=== PATIENT | female | born 1970 | race Caucasian/White ===

== ENCOUNTER → 2024-11-10 | Outpatient (CLI) | payer BC, SELFPAY ==
[2024-11-10 11:18] LABS: EXAGEN MAILED SPECIMEN
[2024-11-10 12:18] LABS: Color, Urine Yellow (Yellow); Glucose, Dipstick Normal (Normal); Ketone-Dipstick Negative (Negative); Leukocyte Esterase-Dipstick 25 /ul (Negative); Nitrite-Dipstick Negative (Negative); Occult Blood-Urine Negative /ul (Negative); Protein-Dipstick 15 mg/dl (Negative); Urine Bilirubin Dipstick Negative (Negative); Urine Clarity Clear (Clear); Urine Urobilinogen Normal (Normal)
[2024-11-10 12:32] LABS: Protein, Urine (Random) 13.6 mg/dL (<11.9); Protein:Creat Ratio 59 mg/g CRE (0-200)
[2024-11-10 12:43] LABS: Absolute Lymphocyte Count 2.26 X10^3/uL (0.83-4.51); Absolute Neutrophil Count 3.7 X10^3/uL (2.0-7.7); Basophil# 0.04 X10^3/uL; Basophil% 0.6 % (0-1); Eosinophil# 0.13 X10^3/uL; Hematocrit 45.3 % (37-47); Hemoglobin 14.7 g/dL (12.0-15.0); Lymphocyte # 2.26 X10^3/ul (0.83-4.51); Mean Corp Hgb Conc 32.5 g/dL (32-36); Mean Corpuscular Hgb 30.7 pg (27.0-32.0); Mean Corpuscular Volume 94.6 fL (81-99); Mean Platelet Vol. 10.4 fl (6.2-12.0); Monocyte# 0.47 X10^3/uL; Monocyte% 7.1 % (0-10); NRBC Flagged by Analyzer 0 % (0-5); Neutrophil # 3.72 X10^3/uL (2.7-7.7); Platelet Count 252 K/mm3 (150-450); RBC Distribution Width CV 13.5 % (11.6-14.6); RBC Distribution Width SD 47.2 fl (35.1-43.9); Red Blood Count 4.79 M/mm3 (4.2-5.4); White Blood Count 6.6 K/mm3 (4.4-11.0)
[2024-11-10 12:48] LABS: ALB/GLOB Ratio 0.9 RATIO (0.9-2.4); AST(SGOT) 25 U/L (15-37); Alanine Aminotransfer ALT/SGPT 27 U/L (13-56); Albumin, Serum 3.8 g/dL (3.2-5.0); Alkaline Phosphatase 124 U/L (45-117); Anion Gap 5 (5-15); BUN 14 mg/dL (7-18); BUN/Creat Ratio 14.9 RATIO (10-20); Calcium,Total 9.7 mg/dL (8.5-10.1); Chloride 105 mmol/L (98-107); Creatinine, Serum 0.94 mg/dL (0.55-1.02); EST Glomerular Filtration Rate 66 mL/min (>60); Est Glom Filt Rate - Afr Amer 80 mL/min (>60); Globulin 4.3 g/dL (2.2-4.2); Glucose 88 mg/dL (74-106); Potassium 3.7 mmol/L (3.5-5.1); Protein, Total 8.1 g/dL (6.4-8.2); Sodium Level 140 mmol/L (136-145)
[2024-11-10 13:11] LABS: Hepatitis B Surface Antibody Non-Reactive; Hepatitis B Surface Antigen Non-Reactive (Nonreactive); Hepatitis C Antibody Non-Reactive (Nonreactive)
== END | disposition home or self-care (01) ==
LOC: MTLAB 10:14
PROVIDERS: Referring Provider Internal Medicine Rheumatology; Visit Provider Internal Medicine Rheumatology
DX: M06.4 Inflammatory polyarthropathy (principal); R76.8 Other specified abnormal immunological findings in serum
CPT/HCPCS: 36415; 80053; 81002; 82570; 84156; 85025; 86706; 86803; 87340

== ENCOUNTER → 2025-04-03 | Outpatient (CLI) | payer BC, SELFPAY ==
[2025-04-03 15:17] LABS: Hematocrit 40.3 % (37-47); Hemoglobin 12.9 g/dL (12.0-15.0); Immature Granulocytes Count 0.010 X10^3/uL (0.0-0.0); Mean Corp Hgb Conc 32.0 g/dL (32-36); Mean Corpuscular Volume 100.2 fL (81-99); Mean Platelet Vol. 10.4 fl (6.2-12.0); NRBC Flagged by Analyzer 0 % (0-5); Platelet Count 237 K/mm3 (150-450); RBC Distribution Width CV 14.0 % (11.6-14.6); RBC Distribution Width SD 50.9 fl (35.1-43.9); Red Blood Count 4.02 M/mm3 (4.2-5.4); White Blood Count 5.9 K/mm3 (4.4-11.0)
[2025-04-03 16:05] LABS: AST(SGOT) 27 U/L (<=31); Alanine Aminotransfer ALT/SGPT 21 U/L (<=34); Albumin, Serum 4.0 g/dL (3.5-5.0); Alkaline Phosphatase 91 U/L (35-104); Anion Gap 8 (5-15); BUN 11 mg/dL (4-19); BUN/Creat Ratio 11.4 RATIO (10-20); Calcium,Total 9.2 mg/dL (7.6-11.0); Carbon Dioxide 27.8 mmol/L (21.0-32.0); Chloride 106 mmol/L (98-108); Globulin 2.7 g/dL (2.2-4.2); Glucose 87 mg/dL (70-99); Potassium 4.1 mmol/L (3.3-5.1)
--- OUTSIDE RECORDS SUMMARY | 2025-04-03 19:56 | XMS RPT_ITS | CCD ---
Author Organization [facility] Inform ion Partnership [facility] Care Team Providers Care Imcu Nurse Name Role Phone PARAG CANNON Admitting Unavailable PARAG CANNON Attending Unavailable PARAG CANNON Primary Care Unavailable Loreta GARCÍA Consulting Unavailable PROVIDER, UNKNOWN Consulting Unavailable Vera García DO Primary Care Provider Vera García DO Primary Care Provider Vera García DO Primary Care Provider VERA GARCÍA Primary Care Unavailable JOSEPHINE KINGSTON Attending Unavailable VERA GARCÍA Primary Care Unavailable JOSEPHINE KINGSTON Attending Unavailable VERA GARCÍA Primary Care Unavailable JOSEPHINE KINGSTON Attending Unavailable ESTEPHANIA MENDEZ Attending Unavailable SEFERINO ESPINAL Consulting Unavailable HALEY VIRK C.N.P. Attending Unav ailable JOSEPHINE KINGSTON Attending Unavailable Vera García Primary Care Provider AMIRAH WELLS Referring Unavailab le VERA GARCÍA Primary Care Unavailable Vera García DO Primary Care Provider [phone] JESSIE LOZOYA Attending Unavailable VERA GARCÍA Primary Care Unavailable JESSIE LOZOYA Referring Unavailable VERA GARCÍA Primary Care Unavailable GRANT VARGAS Attending Unavailable VERA GARCÍA Primary Care Unavailable AMIRAH SANCHEZ Attending Unavailable VERA GARCÍA Primary Care Unavailable JOEL العراقي Attending Unavailable VERA GARCÍA Primary Care Unavailable QUENTIN S Primary Care Unavailable Chetna Alarcon Referring Unavailable Chetna Alarcon Attending Unavailable Allergies Allergy Classification Reported Allergen(s) Allergy Type Date of Onset Reaction(s) Facility (1 source) Amoxicillin Drug Allergy [facility] (1 source) Penicillin Drug Allergy [facility] (20 sources) metroNIDAZOLE; Translations: [METRONIDAZOLE] Drug Allergy 7 Unknown, GI Upset [facility] (17 sources) Penicillins; Translations: [PENICILLINS] Drug Allergy 8 Unknown, Shortness of Breath [facility] (15 sources) armodafinil; Translations: [ARMODAFINIL] Drug Allergy 2 Other: See Comments [facility] (15 sources) cow milk allergenic extract; Translations: [MILK] Drug Allergy 0 GI Upset [facility] (15 sources) shrimp allergenic extract; Translations: [SHRIMP] Drug Allergy 0 GI Upset [facility] (8 sources) armodafinil Drug Allergy 2 [facility] (8 sources) Cow milk Allergy to substance 0 [facility] (8 sources) Penicillins Drug Allergy 8 Shortness of breath [facility] (8 sources) Shrimp product Allergy to substance 0 [facility] [email or web address] Medications Current Medications Medication Drug Class(es) Dates Sig (Normalized) Sig (Original) acetaminophen 325 mg / HYDROcodone bitartrate 5 mg oral tablet (8 sources) Opioid Agonist Start: 11-21-2022 take 1 tablet by mouth once HYDROcodone-aceta minophen (NORCO) 5-325 mg per tablet Take 1 tablet by mouth. 11/21/2022 Active Comment on above: Take 1 tablet by caroline peres [id number] 200 actuat albuterol 0.09 mg/actuat metered dose inhaler (2 sources) beta2-Adrenergic Agonist Start: 07-21-2024 albuterol HFA (PROVENTIL HFA, VENTOLIN HFA) 90 mcg/actuation inhaler Inhale 2 Puffs as instructed. 07/21/2024 Active amylase [id number] unt / lipase 62844 unt / protease [id number] unt delayed release oral capsule (8 sources) Start: 02-05-2023 take 1 capsule by mouth at mealtime Creon [id number] units capsule delayed-release particles capsule TAKE 1 CAPSULE BY MOUTH WITH MEALS AND SNACK 02/05/2023 Active atorvastatin 40 mg oral tablet (20 sources) HMG-CoA Reductase Inhibitor Start: 10-22-2019 take 1 tablet by mouth once daily atorvastatin (Lipitor) 40 MG tablet Take 40 mg by mouth daily. 01/22/2023 Active Comment on above: Take 40 mg by mouth once daily. atropine sulfate 0.025 mg / diphenoxylate hydrochloride 2.5 mg oral tablet (9 sources) Anticholinergic, Cholinergic Muscarinic Antagonist, Antidiarrheal Start: 07-24-2023 take 1 tablet by mouth every eight hours as needed for diarrhea diphenoxylate-atr opine (Lomotil) 2.5-0.025 MG tablet TAKE 1 TABLET BY MOUTH EVERY 8 HOURS NEEDED FOR DIARRHEA 07/24/2023 Active benzonatate 100 mg oral capsule (3 sources) Non-narcotic Antitussive Start: 09-26-2019 End: 05-17-2022 take 1 capsule by mouth three times daily benzonatate (TESSALON PERLE) 100 mg capsule TAKE 1 CAPSULE BY MOUTH THREE TIMES DAILY FOR 10 DAYS 0 09/26/2019 05/17/2022 Discontinued (Course of therapy completed) Comment on above: TAKE 1 CAPSULE BY [facility] THREE TIMES DAILY FOR 10 DAYS dextromethorphan hydrobromide 3 mg/ml / promethazine hydrochloride 1.25 mg/ml oral solution (6 sources) Phenothiazine, Uncompetitive N-vvgkur-Y-aspartat e Receptor Antagonist, Sigma-1 Agonist Start: 10-04-2023 promethazine-dext romethorphan (Phenergan-DM) 6.25-15 MG/5ML syrup 10/04/2023 Active doxycycline hyclate 100 mg oral capsule (6 sources) Tetracycline-class Drug Start: 10-04-2023 doxycycline (Vibramycin) 100 MG capsule 10/04/2023 Active ezetimibe 10 mg oral tablet (20 sources) Dietary Cholesterol Absorption Inhibitor Start: 04-18-2023 take 1 tablet by mouth once daily ezetimibe (Zetia) 10 MG tablet Take 10 mg by mouth daily. 04/18/2023 Active Start: 10-14-2019 End: 03-18-2023 take 1 tablet by mouth once daily ezetimibe (ZETIA) 10 mg tablet Take 10 mg by mouth once daily. For 30 days 10/14/2019 Active Comment on above: Take 10 mg by mouth once daily. For 30 days once daily. hyoscyamine sulfate 0.125 mg oral tablet (17 sources) Start: 01-30-2023 take 1 tablet by mouth three times daily as needed hyoscyamine (Anaspaz,Levsin) 0.125 MG tablet Take 0.125 mg by mouth 3 times daily as needed. 01/30/2023 Active Start: 05-15-2022 Hyoscyamine Gomez lfate 0.125 mg/5 mL elix 05/15/2022 Active levocetirizine dihydrochloride 5 mg oral tablet (17 sources) Histamine-1 Receptor Antagonist Start: 06-24-2022 take 1 tablet by mouth once daily in the evening levocetirizine (Xyzal) 5 MG tablet Take 5 mg by mouth every evening. 06/24/2022 Active Comment on above: 5 mg. lipase/protease/amyla se (CREON ORAL) (12 sources) lipase/protease/ grant lase (CREON ORAL) Take by mouth once daily. Active lipase/protease/ amylase (CREON ORAL) Take by mouth once daily. 0 Active Comment on above: Take by mouth once d aily. 24 hr metoprolol succinate 50 mg extended release oral tablet (20 sources) beta-Adrenergic [place] Start: 05-26-2023 take 1 tablet by mouth once daily metoprolol succinate XL (Toprol-XL) 50 MG 24 hr tablet Take 50 mg by mouth daily. 05/26/2023 Active Start: 10-22-2019 End: 03-18-2023 take 1 tablet by mouth once daily metoprolol succinate ER (TOPROL XL) 50 mg 24 hr tablet Take 50 mg by mouth once daily. 0 10/22/2019 Active Comment on above: Take 50 mg by mouth once daily. once daily. PARAGARD INTRAUTERINE COPPER IU (8 sources) PARAGARD INTRAUT ERINE COPPER IU by IntraUTERine route. Inserted 2016 Active PARAGARD INTRAUT ERINE COPPER IU by IntraUTERine route. 0 Active sulfamethoxazole 800 mg / trimethoprim 160 mg oral tablet (3 sources) Dihydrofolate Reductase Inhibitor Antibacterial, Sulfonamide Antimicrobial Start: 03-18-2023 End: 03-28-2023 take 1 tablet by mouth twice daily sulfamethoxazole-trimethoprim (BACTRIM DS) 800-160 mg per tablet Indications: Acute midline low back pain without sciatica , Urinary frequency , Cellulitis of left thigh Take 1 tablet by mouth twice daily for 10 days. 20 tablet 0 03/18/2023 03/28/2023 Active Comment on above: Take 1 tablet by caroline twice daily for 10 days. Completed/Discontinued Medications Medication Drug Class(es) Dates Sig (Normalized) Sig (Original) albuterol 0.833 mg/ml / ipratropium bromide 0.167 mg/ml inhalation solution (2 sources) Anticholinergic, beta2-Adrenergic Agonist Start: 08-22-2024 End: 08-22-2024 ipratropium-albute rol 3 mL nebulizer solution (DUONEB) Start: 08-22-2024 End: 08-22-2024 take 1 dose by inhalation once 3 mL, INHALATION, ONCE, 1 dose, On Sun08/22/24 at 1500, PROTECT FROM LIGHT. The unit-dose vial should remain stored in the protective foil pouch until time of use. 1 ml triamcinolone acetonide 40 mg/ml injection (2 sources) Corticosteroid Start: 08-22-2024 End: 08-22-2024 triamcinolone acetonide 40 mg injection (KeNALog 40) Start: 08-22-2024 End: 08-22-2024 inject 1 dose by intramuscular injection once 40 mg, INTRAMUSCULAR, ONCE, 1 dose, On Sun08/22/24 at 1530 Problems Active Problems Problem Classification Problem Date Documented Date Episodic/Chronic Administrative/social admission (1 source) Referral statuses; Translations: [Persons encountering health services in other specified circumstances] 06-06-2023 Episodic Contraceptive and procreative management (1 source) Contraception ; Translations: [Encounter for surveillance of other contraceptives] 06-16-2024 Episodic Genitourinary symptoms and ill-defined conditions (2 sources) Female stress incontinence; Translations: [Stress incontinence (female) (male)] 10-05-2023 Chronic Genitourinary symptoms and ill-defined conditions (2 sources) Increased frequency of urination; Translations: [Frequency of micturition] Episodic Other diseases of bladder and urethra (1 source) Overactive bladder; Translations: [Overactive bladder] 10-05-2023 Chronic Other ear and sense organ disorders (1 source) Impacted cerumen in left ear; Translations: [Impacted cerumen, left ear] 08-22-2024 Episodic Other ear and sense organ disorders (1 source) Impacted cerumen, left ear; Translations: [Impacted cerumen of left ear] Onset: 08-22-2024 Episodic Other lower respiratory disease (2 sources) Cough; Translations: [Acute cough] 08-22-2024 Episodic Other screening for suspected conditions (not mental disorders or infectious disease) (5 sources) Patient encounter status; Translations: [Encounter for screening mammogram for malignant neoplasm of breast] Onset: 06-16-2024 06-04-2023 Episodic Pancreatic disorders (not diabetes) (13 sources) Chronic pancreatitis; Translations: [Other chronic pancreatitis] Onset: 05-17-2022 Chronic Prolapse of female genital organs (1 source) Midline cystocele; Translations: [Cystocele, midline] 10-05-2023 Chronic Rheumatoid arthritis and related disease (1 source) Inflammatory polyarthropathy; Translations: [Inflammatory polyarthropathy] Onset: 11-21-2024 Chronic Skin and subcutaneous tissue infections (1 source) Cellulitis of left thigh; Translations: [Cellulitis of left lower limb] Episodic Superficial injury; contusion (1 source) Insect bite of lower limb; Translations: [Insect bite (nonvenomous), left thigh, initial encounter] Episodic Unclassified (1 source) Acute cough; Translations: [Acute cough] Onset: 08-22-2024 Unclassified (2 sources) Procedure; Translations: [Procedure] Onset: 10-05-2023 Past or Other Problems Problem Classification Problem Date Documented Da te Episodic/Chronic Calculus of urinary tract (14 sources) Ureteric stone; Translations: [Calculus of ureter] Onset: 05-17-2022 Episodic Spondylosis; intervertebral disc disorders; other back problems (2 sources) Acute low back pain; Translations: [Acute midline low back pain without sciatica] Onset: 05-01-2022 Episodic Results Test Name Value Interpretation Reference Range Facil ity CBC W/Diff, Automatedon 10-25 Absolute Lymph 2.26 X10 3/uL Normal 0.83-4.51 [facility] Comment on above: Performed By: #### L 3890.6200, L100.0100, L500.4050, L501.0900, L3890.6300, L400.2011, L3890.6100 #### [facility] [address] [place], [address] Absolute Neut 3.7 X10 3/uL Normal 2.0-7.7 [facility] Comment on above: Performed By: #### L 3890.6200, L100.0100, L500.4050, L501.0900, L3890.6300, L400.2010, L3890.6100 #### [facility] [address] [place], [address] Basophils/100 WBC (Bld) 0.6 % Normal 0-1 [facility] Comment on above: Performed By: #### L 3890.6200, L100.0100, L500.4050, L501.0900, L3890.6300, L400.2010, L3890.6100 #### [facility] [address] [place], [address] Eosinophils/100 WBC (Bld) 2.0 % Normal 0-5 [facility] Comment on above: Performed By: #### L 3890.6200, L100.0100, L500.4050, L501.0900, L3890.6300, L400.2010, L3890.6100 #### [facility] [address] [place], [address] Erythrocyte distribution width (RBC) [Ratio] 13.5 % Normal 11.6-14.6 [facility] Comment on above: Performed By: #### L 3890.6200, L100.0100, L500.4050, L501.0900, L3890.6300, L400.2010, L3890.6100 #### [facility] [address] [place], [address] Hematocrit (Bld) [Volume fraction] 45.3 % Normal 37-47 [facility] Comment on above: Performed By: #### L 3890.6200, L100.0100, L500.4050, L501.0900, L3890.6300, L400.2010, L3890.6100 #### [facility] [address] [place], [address] Hemoglobin (Bld) [Mass/Vol] 14.7 g/dL Normal 12.0-15.0 [facility] Comment on above: Performed By: #### L 3890.6200, L100.0100, L500.4050, L501.0900, L3890.6300, L400.2010, L3890.6100 #### [facility] [address] [place], [address] IG% 0.300 Normal 0.0-0.9 [facility] Comment on above: Result Comment: IG% - Immature Granulocytes (promyelocytes, myelocytes and metamyelocytes) > 1% indicates that a LEFT SHIFT is Present. Performed By: #### L 3890.6200, L100.0100, L500.4050, L501.0900, L3890.6300, L400.2010, L3890.6100 #### [facility] [address] [place], [address] Lymphocytes/100 WBC (Bld) 34.0 % Normal 19-41 [facility] Comment on above: Performed By: #### L 3890.6200, L100.0100, L500.4050, L501.0900, L3890.6300, L400.2010, L3890.6100 #### [facility] [address] [place], [address] MCH (RBC) [Entitic mass] 30.7 pg Normal 27.0-32.0 [facility] Comment on above: Performed By: #### L 3890.6200, L100.0100, L500.4050, L501.0900, L3890.6300, L400.2010, L3890.6100 #### [facility] [address] [place], [address] MCHC (RBC) [Mass/Vol] 32.5 g/dL Normal 32-36 [facility] Comment on above: Performed By: #### L 3890.6200, L100.0100, L500.4050, L501.0900, L3890.6300, L400.2010, L3890.6100 #### [facility] [address] [place], [address] MCV (RBC) [Entitic vol] 94.6 fL Normal 81-99 [facility] Comment on above: Performed By: #### L 3890.6200, L100.0100, L500.4050, L501.0900, L3890.6300, L400.2010, L3890.6100 #### [facility] [address] [place], [address] Monocytes/100 WBC (Bld) 7.1 % Normal 0-10 [facility] Comment on above: Performed By: #### L 3890.6200, L100.0100, L500.4050, L501.0900, L3890.6300, L400.2010, L3890.6100 #### [facility] [address] [place], [address] Neutrophils/100 WBC (Bld) 56.0 % Normal 47-70 [facility] Comment on above: Performed By: #### L 3890.6200, L100.0100, L500.4050, L501.0900, L3890.6300, L400.2010, L3890.6100 #### [facility] [address] [place], [address] Nucleated RBC (Bld) [#/Vol] 0 10*3/uL Normal 0-5 [facility] Comment on above: Performed By: #### L 3890.6200, L100.0100, L500.4050, L501.0900, L3890.6300, L400.2010, L3890.6100 #### [facility] [address] [place], [address] Platelet mean volume (Bld) [Entitic vol] 10.4 fL Normal 6.2-12.0 [facility] Comment on above: Performed By: #### L 3890.6200, L100.0100, L500.4050, L501.0900, L3890.6300, L400.2010, L3890.6100 #### [facility] [address] [place], [address] Platelets (Bld) [#/Vol] 252 10*3/uL Normal 150-450 [facility] Comment on above: Performed By: #### L 3890.6200, L100.0100, L500.4050, L501.0900, L3890.6300, L400.2010, L3890.6100 #### [facility] [address] [place], [address] RBC (Bld) [#/Vol] 4.79 10*6/uL Normal 4.2-5.4 [facility] Comment on above: Performed By: #### L 3890.6200, L100.0100, L500.4050, L501.0900, L3890.6300, L400.2010, L3890.6100 #### [facility] [address] [place], [address] RDW SD 47.2 fl High 35.1-43.9 [facility] Comment on above: Performed By: #### L 3890.6200, L100.0100, L500.4050, L501.0900, L3890.6300, L400.2010, L3890.6100 #### [facility] [address] [place], [address] WBC (Bld) [#/Vol] 6.6 10*3/uL Normal 4.4-11.0 [facility] Comment on above: Performed By: #### L 3890.6200, L100.0100, L500.4050, L501.0900, L3890.6300, L400.2010, L3890.6100 #### [facility] [address] [place], [address] Comprehensive Metabolic Prof ilon 11-10-2024 Albumin [Mass/Vol] 3.8 g/dL Normal 3.2-5.0 [facility] Comment on above: Performed By: #### L 3890.6200, L100.0100, L500.4050, L501.0900, L3890.6300, L400.2010, L3890.6100 #### [facility] [address] [place], [address] Albumin/Globulin [Mass ratio] 0.9 {ratio} Normal 0.9-2.4 [facility] Comment on above: Performed By: #### L 3890.6200, L100.0100, L500.4050, L501.0900, L3890.6300, L400.2010, L3890.6100 #### [facility] [address] [place], [address] ALK P 124 U/L High 45-117 [facility] Comment on above: Performed By: #### L 3890.6200, L100.0100, L500.4050, L501.0900, L3890.6300, L400.2010, L3890.6100 #### [facility] [address] [place], [address] ALT [Catalytic activity/Vol] 27 U/L Normal 13-56 [facility] Comment on above: Performed By: #### L 3890.6200, L100.0100, L500.4050, L501.0900, L3890.6300, L400.2010, L3890.6100 #### [facility] [address] [place], [address] AST [Catalytic activity/Vol] 25 U/L Normal 15-37 [facility] Comment on above: Performed By: #### L 3890.6200, L100.0100, L500.4050, L501.0900, L3890.6300, L400.2010, L3890.6100 #### [facility] [address] [place], [address] Bilirubin [Mass/Vol] 0.80 mg/dL Normal 0.20-1.00 [facility] Comment on above: Result Comment: For patients on eltrombopag therapy, use of Dimension [place] TBIL is not recommended. Performed By: #### L 3890.6200, L100.0100, L500.4050, L501.0900, L3890.6300, L400.2010, L3890.6100 #### [facility] [address] [place], [address] BUN/CRE 14.9 RATIO Normal 10-20 [facility] Comment on above: Performed By: #### L 3890.6200, L100.0100, L500.4050, L501.0900, L3890.6300, L400.2010, L3890.6100 #### [facility] [address] [place], [address] CA,Total 9.7 mg/dL Normal 8.5-10.1 [facility] Comment on above: Performed By: #### L 3890.6200, L100.0100, L500.4050, L501.0900, L3890.6300, L400.2010, L3890.6100 #### [facility] [address] [place], [address] Chloride [Moles/Vol] 105 mmol/L Normal 98-107 [facility] Comment on above: Performed By: #### L 3890.6200, L100.0100, L500.4050, L501.0900, L3890.6300, L400.2010, L3890.6100 #### [facility] [address] [place], [address] CO2 [Moles/Vol] 30.0 mmol/L Normal 21.0-32.0 [facility] Comment on above: Performed By: #### L 3890.6200, L100.0100, L500.4050, L501.0900, L3890.6300, L400.2010, L3890.6100 #### [facility] [address] [place], [address] Creatinine [Mass/Vol] 0.94 mg/dL Normal 0.55-1.02 [facility] Comment on above: Result Comment: The validity of the calculated GFR GFRAA in patients over 70 years has not been determined. Clinical correlation is essential. Performed By: #### L 3890.6200, L100.0100, L500.4050, L501.0900, L3890.6300, L400.2010, L3890.6100 #### [facility] [address] [place], [address] EST GFR - AA 80 mL/min Normal >60 [facility] Comment on above: Result Comment: Afri can Stateless GFR Calc Performed By: #### L 3890.6200, L100.0100, L500.4050, L501.0900, L3890.6300, L400.2010, L3890.6100 #### [facility] [address] [place], [address] GAP 5 Normal 5-15 [facility] Comment on above: Performed By: #### L 3890.6200, L100.0100, L500.4050, L501.0900, L3890.6300, L400.2010, L3890.6100 #### [facility] [address] [place], [address] GFR/1.73 sq M.predicted among non-blacks MDRD (S/P/Bld) [Vol rate/Area] 66 mL/min/{1.73_m2} Normal >60 [facility] Comment on above: Result Comment: Non- GFR Calc Performed By: #### L 3890.6200, L100.0100, L500.4050, L501.0900, L3890.6300, L400.2010, L3890.6100 #### [facility] [address] [place], [address] Globulin (S) [Mass/Vol] 4.3 g/dL High 2.2-4.2 [facility] Comment on above: Performed By: #### L 3890.6200, L100.0100, L500.4050, L501.0900, L3890.6300, L400.2010, L3890.6100 #### [facility] [address] [place], [address] Glucose [Mass/Vol] 88 mg/dL Normal 74-106 [facility] Comment on above: Performed By: #### L 3890.6200, L100.0100, L500.4050, L501.0900, L3890.6300, L400.2010, L3890.6100 #### [facility] [address] [place], [address] Potassium [Moles/Vol] 3.7 mmol/L Normal 3.5-5.1 [facility] Comment on above: Performed By: #### L 3890.6200, L100.0100, L500.4050, L501.0900, L3890.6300, L400.2010, L3890.6100 #### [facility] [address] [place], [address] Sodium [Moles/Vol] 140 mmol/L Normal 136-145 [facility] Comment on above: Performed By: #### L 3890.6200, L100.0100, L500.4050, L501.0900, L3890.6300, L400.2010, L3890.6100 #### [facility] [address] [place], [address] T PROT 8.1 g/dL Normal 6.4-8.2 [facility] Comment on above: Performed By: #### L 3890.6200, L100.0100, L500.4050, L501.0900, L3890.6300, L400.2010, L3890.6100 #### [facility] [address] [place], [address] Urea nitrogen [Mass/Vol] 14 mg/dL Normal 7-18 [facility] Comment on above: Performed By: #### L 3890.6200, L100.0100, L500.4050, L501.0900, L3890.6300, L400.2010, L3890.6100 #### [facility] [address] [place], [address] EXAGENon 11-10-2024 EXAGEN MAILED SPECIMEN Normal [facility] Comment on above: Performed By: #### L 801.1549 #### [facility] [address] [place], [address] Hepatitis B Surface Antibody on 11-10-2024 HEP B Surf Ab Non-Reactive Normal [facility] Comment on above: Result Comment: Non Reactive: Inconsistent with immunity less than <10 mIU/mL Reactive: Consistent with immunity greater than or equal to 10 mIU/mL Performed By: #### L 3890.6200, L100.0100, L500.4050, L501.0900, L3890.6300, L400.2010, L3890.6100 #### [facility] [address] [place], [address] Hepatitis B Surface Antigeno n 11-10-2024 HEP B Surf Ag Non-Reactive Normal Nonreactive [facility] Comment on above: Performed By: #### L 3890.6200, L100.0100, L500.4050, L501.0900, L3890.6300, L400, L3890.6100 #### [facility] [address] [place], [address] Hepatitis C Antibodyon 11-10 Hepatitis C AB Non-Reactive Normal Nonreactive [facility] Comment on above: Result Comment: Non Reactive: < 0.8 Equivocal: >/= 0.8 to < 1.0 Reactive: >/= 1.0 The CDC requires that a reactive/equivocal HCV antibody result be sent out for confirmation. HCV Quant by PCR testing. Performed By: #### L 3890.6200, L100.0100, L500.4050, L501.0900, L3890.6300, L400, L3890.6100 #### [facility] [address] [place], [address] Protein+Creatinine Ratio,Uri neon 11-10-2024 PROT:CRE RATIO 59 mg/g CRE Normal 0-200 [facility] Comment on above: Performed By: #### L 3890.6200, L100.0100, L500.4050, L501.0900, L3890.6300, L400.2010, L3890.6100 #### [facility] [address] [place], [address] Protein (U) [Mass/Vol] 13.6 mg/dL High <11.9 [facility] Comment on above: Performed By: #### L 3890.6200, L100.0100, L500.4050, L501.0900, L3890.6300, L400.2010, L3890.6100 #### [facility] [address] [place], [address] UR CREAT 232.00 mg/dL Normal NO RANGE EST. [facility] Comment on above: Performed By: #### L 3890.6200, L100.0100, L500.4050, L501.0900, L3890.6300, L400.2010, L3890.6100 #### [facility] [address] [place], [address] Urinalysis, Routine (Dipstic k)on 11-10-2024 BILIRUBIN URINE Negative Normal Negative [facility] Comment on above: Order Comment: Urine , Random Performed By: #### L 3890.6200, L100.0100, L500.4050, L501.0900, L3890.6300, L400.2010, L3890.6100 #### [facility] [address] [place], [address] Clarity (U) Clear Normal Clear [facility] Comment on above: Order Comment: Urine , Random Performed By: #### L 3890.6200, L100.0100, L500.4050, L501.0900, L3890.6300, L400.2010, L3890.6100 #### [facility] [address] [place], [address] Color (U) Yellow Normal Yellow [facility] Comment on above: Order Comment: Urine , Random Performed By: #### L 3890.6200, L100.0100, L500.4050, L501.0900, L3890.6300, L400.2010, L3890.6100 #### [facility] [address] [place], [address] GLUCOSE, UR Normal Normal Normal [facility] Comment on above: Order Comment: Urine , Random Performed By: #### L 3890.6200, L100.0100, L500.4050, L501.0900, L3890.6300, L400.2010, L3890.6100 #### [facility] [address] [place], [address] KETONE UR Negative Normal Negative [facility] Comment on above: Order Comment: Urine , Random Performed By: #### L 3890.6200, L100.0100, L500.4050, L501.0900, L3890.6300, L400.2010, L3890.6100 #### [facility] [address] [place], [address] LEUK ESTERASE 25 /ul Abnormal Negative [facility] Comment on above: Order Comment: Urine , Random Performed By: #### L 3890.6200, L100.0100, L500.4050, L501.0900, L3890.6300, L400.2010, L3890.6100 #### [facility] [address] [place], [address] Nitrite Ql (U) Negative Normal Negative [facility] Comment on above: Order Comment: Urine , Random Performed By: #### L 3890.6200, L100.0100, L500.4050, L501.0900, L3890.6300, L400.2010, L3890.6100 #### [facility] [address] [place], [address] OCCULT BLOOD-UR Negative Normal Negative [facility] Comment on above: Order Comment: Urine , Random Performed By: #### L 3890.6200, L100.0100, L500.4050, L501.0900, L3890.6300, L400.2010, L3890.6100 #### [facility] [address] [place], [address] pH UR 6.0 Normal 5.0 - 8.0 [facility] Comment on above: Order Comment: Urine , Random Performed By: #### L 3890.6200, L100.0100, L500.4050, L501.0900, L3890.6300, L400.2010, L3890.6100 #### [facility] [address] [place], [address] PROT DIPSTX 15 mg/dl Abnormal Negative [facility] Comment on above: Order Comment: Urine , Random Performed By: #### L 3890.6200, L100.0100, L500.4050, L501.0900, L3890.6300, L400.2010, L3890.6100 #### [facility] [address] [place], [address] SP.GR. DIPSTX 1.020 Normal 1.002-1.030 [facility] Comment on above: Order Comment: Urine , Random Performed By: #### L 3890.6200, L100.0100, L500.4050, L501.0900, L3890.6300, L400.2010, L3890.6100 #### [facility] [address] [place], [address] UROBILI Normal Normal Normal [facility] Comment on above: Order Comment: Urine , Random Performed By: #### L 3890.6200, L100.0100, L500.4050, L501.0900, L3890.6300, L400.2010, L3890.6100 #### [facility] [address] [place], [address] 36on 09-08-2024 36 S: Patient called [facility] B: Appointment for today at 8am A: Patient states she just got a text stating that appointment needs to be rescheduled. Patient trying to confirm if she still has appointment for today or not. R: Patient asking to be called if appointment needs to be rescheduled. Patient can be reached at [phone]. Reason for Disposition ? 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 Benadryl and cough medication last dose yesterday ) HPI: Madelyn Juarez is a 54 year old female who presents today for 1 month history of cold-like symptoms. Patient states approximately 1 month ago she started with runny nose body aches and a cough. States that she saw her family doctor's office at that time was diagnosed with bronchitis. Was encouraged aigb-bkz-[id number] cold and cough medications. Patient states approximately 1 week later she called in and stated she was no better. States at that time she was sent a Z-Raciel prescription. Patient states that she did not see any improvement in her symptoms with this medicine. States she contacted them again on August 04. Was placed on doxycycline twice a day for 7 days as well as a Tessalon prescription. Patient states that again she had not seen any improvement. States that she did go on a cruise to the [facility] recently. States she seemed to improve while in the warmer weather. As soon as they got home her symptoms have worsened. Does have a history of seasonal allergies. Is currently taking 2 different antihistamines. Patient states she used to get like this every year and her primary care provider used to give her an injection which cleared her symptoms. Patient does believe this was a Kenalog injection. Patient denies any fever. Has had headache as well as diarrhea. Has attempted cough syrup. Has not had chest x-ray nor oral steriods since symptoms started. PAST MEDICAL HISTORY Diagnosis Date Cholecystitis Hypercholesterolemia IBS (irritable bowel syndrome) Kidney stone Sinus tachycardia PAST SURGICAL HISTORY Procedure Laterality Date D AND C NASAL ENDOS,DIAG,UNI/ BILATERAL RADIUS/ULNER FX ORTH Left REMOVAL GALLBLADDER FAMILY HISTORY Problem Relation Age of Onset Breast Cancer Mother Cancer Mother Bone Breast Cancer Other 2 Aunts Colon Cancer Maternal Grandfather Social History Tobacco Use Smoking status: Never Smokeless tobacco: Never Vaping Use Vaping status: Never Used Substance Use Topics Alcohol use: Not Currently ALLERGIES Allergen Reactions Metronidazole GI Upset Flagyl Armodafinil Other: See Comments Milk GI Upset Penicillins Shortness of Breath Shrimp GI Upset There is no immunization history on file for this patient. Current Medications: albuterol HFA (PROVENTIL HFA, VENTOLIN HFA) 90 mcg/actuation inhaler Inhale 2 Puffs as instructed. diphenoxylate-atropin e (LOMOTIL) 2.5-0.025 mg per tablet Take 1 tablet by mouth every 8 hours as needed. HYDROcodone-acetamino phen (NORCO) 5-325 mg per tablet Take 1 tablet by mouth. Hyoscyamine Sulfate 0.125 mg/5 mL elix levocetirizine 5 mg tablet 5 mg. metoprolol succinate ER (TOPROL XL) 50 mg 24 hr tablet once daily. lipase/protease/amyla se (CREON ORAL) Take by mouth once daily. atorvastatin (LIPITOR) 40 mg tablet Take 40 mg by mouth once daily. ezetimibe (ZETIA) 10 mg tablet Take 10 mg by mouth once daily. For 30 days Review of Systems Constitutional: Positive for malaise/fatigue. Negative for fever. HENT: Positive for congestion (drainage). Negative for ear pain and sore throat. Eyes: Negative. Respiratory: Positive for cough and wheezing. Negative for shortness of breath. Cardiovascular: Negative. Gastrointestinal: Positive for diarrhea. Negative for vomiting. Musculoskeletal: Positive for myalgias. Skin: Negative for rash. Neurological: Positive for headaches. Objective BP 168/110 Pulse 106 Temp (Src) 98.3 (Oral) Resp 16 Wt 191 lb 12.8 oz (87.0kg) SpO2 97% LMP 01/09/2024 Physical Exam Vitals reviewed. Constitutional: General: She is not in acute distress. Appearance: Normal appearance. She is not ill-appearing, toxic-appearing or diaphoretic. Interventions: She is not intubated. HENT: Head: Normocephalic and atraumatic. Right Ear: Tympanic membrane, ear canal and external ear normal. Left Ear: There is impacted cerumen. Nose: Rhinorrhea present. Rhinorrhea is clear. Mouth/Throat: Lips: Seguin. Mouth: Mucous membranes are moist. Dentition: Normal dentition. No dental tenderness. Tongue: No lesions. Tongue does not deviate from midline. Palate: No mass and lesions. Pharynx: Oropharynx is clear. Uvula midline. No pharyngeal swelling, oropharyngeal exudate, posterior orop (more content not included)... Normal [facility] XR CHEST 2V FRONTAL/LATon XR CHEST 2V FRONTAL/LAT * * *Final Report* * * DATE OF EXAM: Aug 22 2024 2:52PM UFR [id number] - XR CHEST 2V FRONTAL/LAT / PROCEDURE REASON: Acute cough * * * * Physician Interpretation * * * * EXAMINATION: CHEST RADIOGRAPH (2 VIEW FRONTAL and LATERAL) CLINICAL HISTORY: Acute cough MQ: XC2_6 EXAM DATE/TIME: 08/22/2024 2:52 PM COMPARISON: Chest x-ray 04/05/2020 RESULT: Lines, tubes, and devices: None. Lungs and pleura: No consolidation. No lung mass. No pleural effusion. No pneumothorax. Cardiomediastinal silhouette: Normal cardiomediastinal silhouette. Bones and soft tissues: Unremarkable. IMPRESSION: No acute radiographic abnormality. Mail Deliverer: JENNI Transcribe Date/Time: Aug 22 2024 3:01P Dictated by : MESSI YOO MD This examination was interpreted and the report reviewed and electronically signed by: MESSI YOO MD on Aug 22 2024 3:02PM EST [id number] N Normal [facility] XR Chest PA and Lateralon IMPRESSION: No acute radiographic abnormality. Mail Deliverer: JENNI Transcribe Date/Time: Aug 22 2024 3:01P Dictated by : MESSI YOO MD This examination was interpreted and the report reviewed and electronically signed by: MESSI YOO MD on Aug 22 2024 3:02PM [facility] * * *Final Report* * * DATE OF EXAM: Aug 22 2024 2:52PM UFR [id number] - XR CHEST 2V FRONTAL/LAT / PROCEDURE REASON: Acute cough * * * * Physician Interpretation * * * * EXAMINATION: CHEST RADIOGRAPH (2 VIEW FRONTAL & LATERAL) CLINICAL HISTORY: Acute cough MQ: XC2_6 EXAM DATE/TIME: 08/22/2024 2:52 PM COMPARISON: Chest x-ray 04/05/2020 RESULT: Lines, tubes, and devices: None. Lungs and pleura: No consolidation. No lung mass. No pleural effusion. No pneumothorax. Cardiomediastinal silhouette: Normal cardiomediastinal silhouette. Bones and soft tissues: Unremarkable. [facility] Provider, [facility] * * *Final Report* * * DATE OF EXAM: Aug 22 2024 2:52PM UFR 5291 - XR CHEST 2V FRONTAL/LAT / PROCEDURE REASON: Acute cough * * * * Physician Interpretation * * * * EXAMINATION: CHEST RADIOGRAPH (2 VIEW FRONTAL & LATERAL) CLINICAL HISTORY: Acute cough MQ: XC2_6 EXAM DATE/TIME: 08/22/2024 2:52 PM COMPARISON: Chest x-ray 04/05/2020 RESULT: Lines, tubes, and devices: None. Lungs and pleura: No consolidation. No lung mass. No pleural effusion. No pneumothorax. Cardiomediastinal silhouette: Normal cardiomediastinal silhouette. Bones and soft tissues: Unremarkable. IMPRESSION IMPRESSION: No acute radiographic abnormality. Mail Deliverer: JENNI Transcribe Date/Time: Aug 22 2024 3:01P Dictated by : MESSI YOO MD This examination was interpreted and the report reviewed and electronically signed by: MESSI YOO MD on Aug 22 2024 3:02PM [facility] Radiology Study observation (narrative) [facility] XR Chest PA and LateralOrder ed By: [facility] Provider on 08-22-2024 [facility] DBT Breast - bilateral donovan conti 07-02-2024 IMPRESSION: There is no mammographic evidence of malignancy in either breast. Routine follow-up mammogram in 1 year is recommended. BI-RADS Category 1: Negative RISK: Based on the Tyrer-Cuzick (TC) risk assessment model, this patient has a 15.6% lifetime risk of developing breast cancer, meaning they are at average risk for developing breast cancer. However, this is only an estimate based on available history provided on the patient's questionnaire. We encourage all patients talk with their providers about these results, further recommendations for managing breast health, and appropriate supplemental screening options if the patient has dense breast tissue. Interpreting Radiologist: Opal Rodrigues M.D. Electronically signed on: 07/02/2024 Mail Deliverer: BHARATH Transcribe Date/Time: Jul 02 2024 6:51A Dictated by : OPAL RODRIGUES MD This examination was interpreted and the report reviewed and electronically signed by: OPAL RODRIGUES MD on Jul 02 2024 8:47AM [facility] * * *Final Report* * * DATE OF EXAM: Jul 02 2024 7:18AM [facility] 0582 - BEE SCREENING W NGOZI / PROCEDURE REASON: BREAST SCREENING WITH CAD [id number] * * * * Physician Interpretation * * * * [address] [place] [facility] [place] [address] HISTORY: Patient is 54 years old and is seen for screening and is asymptomatic in both breasts. The patient has no personal history of cancer. COMPARISON STUDIES: The present examination has been compared to prior imaging studies dated 05/11/2022 (mammogram) and 06/06/2023 (mammogram). MAMMOGRAM TECHNIQUE: The study was acquired using full field digital technology and interpreted from soft copy. Digital Breast Tomosynthesis (DBT) images were obtained and used to assist in the interpretation of this examination. Computer-aided detection was utilized by the radiologist in the interpretation of this examination. MAMMOGRAM FINDINGS: There are scattered areas of fibroglandular density. No suspicious masses, calcifications or other abnormalities are seen in either breast. There are no significant changes from the prior study. [facility] Provider, Shira Franchesca zuniga [place] - 07/02/2024 * * *Final Report* * * DATE OF EXAM: Jul 02 2024 7:18AM W 0582 - BEE SCREENING W NGOZI / PROCEDURE REASON: BREAST SCREENING WITH CAD [id number] * * * * Physician Interpretation * * * * [facility] [address] [place] [address] HISTORY: Patient is 54 years old and is seen for screening and is asymptomatic in both breasts. The patient has no personal history of cancer. COMPARISON STUDIES: The present examination has been compared to prior imaging studies dated 05/11/2022 (mammogram) and 06/06/2023 (mammogram). MAMMOGRAM TECHNIQUE: The study was acquired using full field digital technology and interpreted from soft copy. Digital Breast Tomosynthesis (DBT) images were obtained and used to assist in the interpretation of this examination. Computer-aided detection was utilized by the radiologist in the interpretation of this examination. MAMMOGRAM FINDINGS: There are scattered areas of fibroglandular density. No suspicious masses, calcifications or other abnormalities are seen in either breast. There are no significant changes from the prior study. IMPRESSION IMPRESSION: There is no mammographic evidence of malignancy in either breast. Routine follow-up mammogram in 1 year is recommended. BI-RADS Category 1: Negative RISK: Based on the Tyrer-Cuzick (TC) risk assessment model, this patient has a 15.6% lifetime risk of developing breast cancer, meaning they are at average risk for developing breast cancer. However, this is only an estimate based on available history provided on the patient's questionnaire. We encourage all patients talk with their providers about these results, further recommendations for managing breast health, and appropriate supplemental screening options if the patient has dense breast tissue. Interpreting Radiologist: Opal Rodrigues M.D. Electronically signed on: 07/02/2024 Mail Deliverer: BHARATH Transcribe Date/Time: Jul 02 2024 6:51A Dictated by : OPAL RODRIGUES MD This examination was interpreted and the report reviewed and electronically signed by: OPAL RODRIGUES MD on Jul 02 2024 8:47AM [facility] Radiology Study observation (narrative) [facility] DBT Breast - bilateral scree ningOrdered By: [facility] Provider on 07-02-2024 [facility] BEE SCREENING W TOMOon 07-02 BEE SCREENING W NGOZI * * *Final Report* * * DATE OF EXAM: Jul 02 2024 7:18AM [facility] 0582 - BEE SCREENING W NGOZI / PROCEDURE REASON: BREAST SCREENING WITH CAD [id number] * * * * Physician Interpretation * * * * [facility] [address] [address] HISTORY: Patient is 54 years old and is seen for screening and is asymptomatic in both breasts. The patient has no personal history of cancer. COMPARISON STUDIES: The present examination has been compared to prior imaging studies dated 05/11/2022 (mammogram) and 06/06/2023 (mammogram). MAMMOGRAM TECHNIQUE: The study was acquired using full field digital technology and interpreted from soft copy. Digital Breast Tomosynthesis (DBT) images were obtained and used to assist in the interpretation of this examination. Computer-aided detection was utilized by the radiologist in the interpretation of this examination. MAMMOGRAM FINDINGS: There are scattered areas of fibroglandular density. No suspicious masses, calcifications or other abnormalities are seen in either breast. There are no significant changes from the prior study. IMPRESSION: There is no mammographic evidence of malignancy in either breast. Routine follow-up mammogram in 1 year is recommended. BI-RADS Category 1: Negative RISK: Based on the Tyrer-Cuzick (TC) risk assessment model, this patient has a 15.6% lifetime risk of developing breast cancer, meaning they are at average risk for developing breast cancer. However, this is only an estimate based on available history provided on the patient's questionnaire. We encourage all patients talk with their providers about these results, further recommendations for managing breast health, and appropriate supplemental screening options if the patient has dense breast tissue. Interpreting Radiologist: Opal Rodrigues M.D. Electronically signed on: 07/02/2024 Mail Deliverer: BHARATH Transcribe Date/Time: Jul 02 2024 6:51A Dictated by : OPAL RODRIGUES MD This examination was interpreted and the report reviewed and electronically signed by: OPAL RODRIGUES MD on Jul 02 2024 8:47AM EST [id number] N [facility] Office Visiton 06-16-2024 Follow-up visit [id number] Madelyn Juarez 1970 F Date Provider Department Center 06/16/2024 [id number]-ZMKAMIRAH SANCHEZ*[facility] Family History Problem Relation Age of Onset Colon cancer Maternal Grandfather Cancer Mother Comments: bone Breast cancer Mother Breast cancer Mother's Sister Lymphoma Paternal Cousin Brain cancer Paternal Cousin Family Status - Relation Status Age at Maternal Grandfather Father Alive Mother Mother's Sister Alive Paternal Cousin Alive Paternal Cousin Level of Service:85156 [place] PERIODIC PREVENTIVE MED EST PATIENT 40-64YRS Reason for Visit and Comments: Annual Exam [83] 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 The patient: declined [facility] Progress Note Madelyn Juarez 06/16/2025 54 y.o. Primary Care Physician: VERA GARCÍA Chief Complaint Patient presents with Annual Exam HPI : Madelyn Juarez is a 54 y.o. female here for annual exam . Her periods have been very irregular over th past year. They are not associated with any hot flashes or night sweats. She has also noted some weight gain in spite of regular exercise. Gynecologic History: Patient's last menstrual period was 01/14/2024. Menses are not regular. Menses occur every 3-4 months. Flow is moderate lasting 4 days. Intermenstrual bleeding: no Dysmenorrhea: none Contraception: IUD paragard 2016 Preventative Health Testing: Date of Last Pap Smear: 2019, neg Abnormal Pap Smear History: na Date of Last Mammogram: 06/07/2023 Date of Last Colonoscopy: 2019, neg hx ibsd ____ Past Medical History: Diagnosis Date Allergies High cholesterol Inappropriate sinus tachycardia (HCC) Past Surgical History: Procedure Laterality Date ARM SURGERY (HISTORICAL) Left CHOLECYSTECTOMY COLONOSCOPY 2019 10 year follow up SINUS SURGERY Family History Problem Relation Name Age of Onset Colon cancer Maternal Grandfather Cancer Mother bone Breast cancer Mother Breast cancer Mother's Sister Lymphoma Paternal Cousin Brain cancer Paternal Cousin Social History Socioeconomic History Marital status: Spouse name: Not on file Number of children: Not on file Years of education: Not on file Highest education level: Not on file Occupational History Not on file Tobacco Use Smoking status: Former Passive exposure: Never Smokeless tobacco: Never Vaping Use Vaping status: Never Used Substance and Sexual Activity Alcohol use: Not Currently Drug use: Never Sexual activity: Yes Partners: Male Comment: Mynor 2017 Other Topics Concern Not on file Social History Narrative Not on file Social Determinants of Health Financial Resource Strain: Not on file Food Insecurity: Not on file Transportation Needs: Not on file Physical Activity: Not on file Stress: Not on file Social Connections: Not on file Intimate Partner Violence: Not on file Housing Stability: Not on file MEDICATIONS: Current Outpatient Medications Medication Sig Dispense Refill atorvastatin (Lipitor) 40 MG tablet Take 40 mg by mouth daily. Creon 17011-488701 units capsule delayed-release particles capsule TAKE 1 CAPSULE BY MOUTH WITH MEALS AND SNACK diphenoxylate-atropin e (Lomotil) 2.5-0.025 MG tablet TAKE 1 TABLET BY MOUTH EVERY 8 HOURS NEEDED FOR DIARRHEA doxycycline (Vibramycin) 100 MG capsule ezetimibe (Zetia) 10 MG tablet Take 10 mg by mouth daily. hyoscyamine (Anaspaz,Levsin) 0.125 MG tablet Take 0.125 mg by mouth 3 times daily as needed. levocetirizine (Xyzal) 5 MG tablet Take 5 mg by mouth every evening. metoprolol succinate XL (Toprol-XL) 50 MG 24 hr tablet Take 50 mg by mouth daily. MYNOR INTRAUTERINE COPPER IU by IntraUTERine route. Inserted 2016 promethazine-dextrome thorphan (Phenergan-DM) 6.25-15 MG/5ML syrup No current facility-administered medications for this visit. ALLERGIES: Allergies as of 06/16/2024 - Reviewed 06/16/2024 Allergen Reaction Noted Metronidazole 11/16/2016 Penicillins Shortness of breath 02/22/2018 Armodafinil 09/26/2021 Milk (cow) 10/23/2019 Shrimp extract 10/23/2019 REVIEW OF SYSTEMS: CONSTIUTIONAL: No weight change or fatigue CV: No Chest Pain with Exertion, Palpitations, Syncope, Edema, Arrhythmia RESPIRATORY: No SOB or Cough, BREAST: No breast abnormalities or lumps GI: No Indigestion, Heartburn, Nausea, vomiting, Diarrhea, Constipation,Bloating or Bowel Changes; No Bloody Stools or melena : No Dysuria, Hematuria or Nocturia. No Urinary Incontinence or Vaginal Discharge,vaginal bleeding, or dysparuenia. NEURO: No CVA, Migraines,Seizure Hx, or Limb Weakness DERM: No Rash, Itching, Mole Changes or Cancer PSYCH: No Depression, Homicidal thoughts,suicidal thoughts, or anxiety MUSCULOSKELETAL: No Arthralgia or Arthritis HEME and LYMPH :No Lymphoma, Von Willebrand's, Hemophillia or Bleeding History PHYSICAL EXAM: Physical Exam Vitals: 06/16/24 0905 BP: 130/76 Pulse: 69 Weight: 196 lb (88.9 kg) Height: 5' 5 (1.651 m) Body mass index is 32.62 kg/m?. [place] PULP: BREASTS: no nipple discharge or retraction, no masses, tenderness or skin changes. No lymphadenopathy. EXTERNAL GENITALIA: normal female structures VAGINA: normal ruggae, no lesions CERVIX: no lesions, no cervical motion tenderness, normal appearance. The IUD string is noted at the 4 o'clock position f the cervical os UTERUS: normal mobility, nontender, normal size, shape and consistency. ADNEXA: normal, non tender no masses. URETHRA: normal. nontender BLADDER: non tender. PELVIC SUPPORT DEFECTS: Normal support of vagina, uterus, (more content not included)... Normal [facility] CNCOon 06-11-[address] [facility] 10-24-2023 36 Cancelled [facility] 10-22-2023 36 Name of Caller: Madelyn Juarez Contact Reason for Appointment: Pt calling to cancel 11.01.23 surgery. Pt states she will hold off on rescheduling for now Office Name: [place] Medication Refills need, if any: n/a Medication Name: n/a [facility] Office Visiton 10-18-2023 Follow-up visit [id number] Madelyn Juarez 1970 F Date Provider Department Center 10/18/2023 GRANT ARANDA Dorothy [facility]i Family History Problem Relation Age of Onset Cancer Mother Comments: bone Colon cancer Maternal Grandfather Breast cancer Mother's Sister Breast cancer Mother Family Status - Relation Status Age at Mother Maternal Grandfather Mother's Sister Alive Father Alive Level of Service:13286 NC OFFICE/OUTPATIENT ESTABLISHED LOW MDM 20 MIN Reason for Visit and Comments: Follow-up [728247] [facility] Progress Noteon 10-18-2023 Progress Note Chief Complaint Patient presents with Follow-up HPI: Patient was referred to urogyn by Dr. Evangelina Montana for urinary incontinence and nocturia. She saw Dr. العراقي and had UDS and cystoscopy. She was diagnosed with mixed incontinence- urge and stress as well as stage 2 anterior prolapse. She is scheduled for sling and anterior repair in Oct. Since scheduling, she has been questioning if she needs surgery. She has had some eventful surgeries recently with complications and is nervous about doing surgery if not needed. She reports getting up to void 2-3 times a night, and has urgency and urg incontinence, will see a bathroom and then get intense need to void, can hardly get pants done fast enough. She does report some ZAC, but not often. She does not leak with movement, laughing, sneezing or regular coughs, but she had bronchitis a few weeks back and was coughing severely at that time and did have some leakage. She had been hesitant to try medications, trying to limit what she needs to take Would like opinion on need for surgery History: Past Medical History: Diagnosis Date Allergies High cholesterol Hypertension Inappropriate sinus tachycardia Past Surgical History: Procedure Laterality Date CHOLECYSTECTOMY SINUS SURGERY Family History Problem Relation Name Age of Onset Cancer Mother bone Colon cancer Maternal Grandfather Breast cancer Mother's Sister Breast cancer Mother Allergies Allergen Reactions Metronidazole Other reaction(s): GI Upset Flagyl Penicillins Shortness of breath Armodafinil Other reaction(s): Other: See Comments Milk (Cow) Other reaction(s): GI Upset Shrimp Extract Allergy Skin Test Other reaction(s): GI Upset Current Outpatient Medications on File Prior to Visit Medication Sig Dispense Refill atorvastatin (Lipitor) 40 MG tablet Take 40 mg by mouth daily. Creon [id number] units capsule delayed-release particles capsule TAKE 1 CAPSULE BY MOUTH WITH MEALS AND SNACK diphenoxylate-atropin e (Lomotil) 2.5-0.025 MG tablet TAKE 1 TABLET BY MOUTH EVERY 8 HOURS NEEDED FOR DIARRHEA doxycycline (Vibramycin) 100 MG capsule ezetimibe (Zetia) 10 MG tablet Take 10 mg by mouth daily. hyoscyamine (Anaspaz,Levsin) 0.125 MG tablet Take 0.125 mg by mouth 3 times daily as needed. levocetirizine (Xyzal) 5 MG tablet Take 5 mg by mouth every evening. metoprolol succinate XL (Toprol-XL) 50 MG 24 hr tablet Take 50 mg by mouth daily. PARAGARD INTRAUTERINE COPPER IU by IntraUTERine route. promethazine-dextrome thorphan (Phenergan-DM) 6.25-15 MG/5ML syrup No current facility-administered medications on file prior to visit. Assessment and Plan: Madelyn was seen today for follow-up. Diagnoses and all orders for this visit: Mixed incontinence urge and stress (Primary) Discussed that it sounds like the urgency/overactive bladder symptoms are far more bothersome, discussed that while there may be some improvement in these with sling/prolapse surgery, the sling is primarily used to treat ZAC and urge incontinence/overacti ve bladder is typically a medical treatment with ditropan or myrbetriq. I did discuss that I am not a urogyn and do not do UDS testing or interpretation and that Dr. العراقي is a specialist in this area, so I encouraged her to discuss any concerns with his office prior to the day of surgery, and if feels uncomfortable, she can always cancel surgery even now that it is scheduled. Total time spent today with patient, reviewing chart, and completing note is 25 minutes. [facility] 36on 10-11-2023 36 Done [facility] 36 Name of caller: Es Contact phone number: [phone] Ext. [phone] Relationship to Patient: [facility] Provider: Malcom Practice: [facility] Chief Complaint/Reason for Call: Es reported that she needs to know what location patient will be having surgery at on 11/01/22. Please call her back. Best time of day caller can be reached: Any Patient advised that office/PCP has 24-48 business hours to return their call: No Normal [facility] Progress Noteon 10-05-2023 Progress Note HPI Chief Complaint Patient presents with Procedure Cystoscopy 53 y.o. female Here for cysto and to discuss UDS and treatment options. Cystourethroscopy I reviewed the procedure with the patient along with the indications, options, alternatives, risks of having and not having the procedure, benefits, and probability of success. I answered patient's questions in detail. I explained the expected post procedure symptoms including possible dysuria and infection. Pt consented to have procedure. A TIME OUT was performed prior to the procedure using active communication to verify: correct patient by 2 patient identifiers, correct procedure/site, correct patient position, and correct equipment available. All were confirmed with physician, nurse, and patient. Preoperative dx: RADHA Postoperative dx: RADHA Procedure: cystourethroscopy Surgeon: Joel العراقي M.D. Anesthesia: 2% lidocaine jelly Complications: none Disposition: home Indication: as above Findings: 1. Urethra: normal urethral mucosa, no evidence of neoplasm, exudates or diverticula. 2. Bladder: normal bladder cavity, normal vascular pattern, trigone normal with benign-appearing squamous metaplasia, bilateral ureteral orifices with good efflux of urine bilaterally. Trabeculation of the bladder was minimal. Normal interureteric ridge. No evidence of calculi, neoplastic changes, tumor or diverticula. Procedure: The patient was brought to the cystoscopy suite. Surgical consent was obtained. She was the positioned in the dorsal lithotomy position. Urethral meatus was cleansed with betadine. A #17 Pal[place] 70 degree cystoscopy was introduced transurethrally. The bladder was filled with 250ml of sterile water. Beginning at 12 o'clock position at the dome of the bladder, a systemic clockwise survey of the bladder was undertaken in a clockwise fashion. Then, 0 degree uresthroscope was introduced. The tip of the urethroscope was brought to the level of the bladder neck. It was withdrawn slightly so that the entire urethrovesical junction was seen. The entire urethral lumen was visualized with water distention. The bladder was drained at the conclusion of the procedure. The instrument was removed. The procedure was well tolerated by the patient. UDS COMPLEX UROFLOWMETRY: Specifications: Performed in sitting position on Urodynamic chair. Pre-test urge to void: 12/01. (Deleon: 1 = no urge to void, 5 = desire to void (no pain or fear of leakage), 10 = strong desire to void + pain and /or fear of leakage) Clinical Reliability of Uroflow per patient: [x] Reliable [] Not reliable [] Unable to void Void Volume: 10 mL. PVR: 50 mL. Voiding pattern: [x] Continuous [] Intermittent [] Interrupted [] Unable to void Qmax: 3.7 Ml/s. Urine Dipstick: negative COMPLEX CYSTOMETRY: Specifications: Performed in urodynamic chair in the upright position. Air-charged sensor catheters placed transurethrally and transrectally. Calibration to resting pDet < 10 cm H20. Filling medium: room temperature sterile water. Fill rate: 41 mL/minute. Catheter placement note: [x] Without difficulty [] Difficult: Prolapse reduction: [] Scopette [] Speculum [] Pessary [x] N/A Filling Sensation: First sensation of fillin mL First desire to void: 101 mL Strong desire to void: 138 mL Detrusor Activity: Detrusor overactivity present: [] Yes [x] No Intravesical volume: 0 mL. Urine loss associated with detrusor contraction: [] Yes [] No [x] N/A Leakage perceived by patient: [] Yes [] No [x] N/A Cystometric Capacity: 199 mL. End point: [x] Patient felt full [] Overactive bladder/Urge urinary incontinence Urodynamic Stress Test: 1. Result: no leak Provocation method: cough Intravesical volume: 101 mL. Pressure Measurement: 157 cm H20. 2. Result: no leak Provocation method: cough Intravesical volume: 199 mL. Pressure Measurement: 139 cm H20. PRESSURE-FLOW STUDY: Voided Volume: 85 mL. Clinical Reliability: [x] Reliable [] Not reliable [] Unable to void Urine Flow: [] Continuous [x] Intermittent [x] Interrupted [] Unable to void Maximum flow rate: 4.8 mL/s. PVR: 114 mL. Evidence of straining: [] Yes [x] No Bladder Outflow Obstruction: equivocal SURFACE ELECTROMYOGRAPHY: Specifications: Adhesive surface electrodes placed: 2 recording electrodes on either side of the anal sphincter and 1 ground electrode. Electrode wires connected to a 12 V electromyography unit. Activity during filling: [x] Normal [] Increased [] Decreased Activity during voiding pressure study: [x] Normal [] Increased [] Decreased URETHRAL MOBILITY: [] Present [] Minimal [x] Absent INTERPRETATION: Technical Quality of Test: [x] Adequate [] Inadequate Clinical Reliability of Test: [x] Reliable [] Not reliable BLADDER STORAGE FUNCTION: Bladder sensation: [] Normal [] Reduced [] Absent [x] Increased Detrusor activity: [x] Normal [] Reduced [] Absent [] (more content not included)... Normal [facility] 36on 10-01-2023 36 Name of caller: Madelyn Juarez Contact phone number: [phone] Relationship to Patient: patient Provider: Dr Artis Practice: Urogyn Chief Complaint/Reason for Call: Pt states her paperwork for procedure 10.05.23 states possible sedation for cystoscopy. It's been a couple months since pt has been seen & she could not remember. Does pt need to have someone drive her for this appt? Please advise Best time of day caller can be reached: Any Patient advised that office/PCP has 24-48 business hours to return their call: Yes Normal [facility] LUMBAR COMPLETEon 03-22-2023 LUMBAR COMPLETE [place] [id number] Name: MADELYN JUAREZ Phys: HALEY VIRK C.N.P. : [birth year] Age: 52 Sex: F Acct: [id number] Loc: RAD Exam Date: 03/22/23 Status: REG CLI Radiology No.: Unit Number: [id number] Exam # Type/Exam [id number] RAD / LUMBAR COMPLETE EXAMINATION: 5 XRAY VIEWS OF THE LUMBAR SPINE 03/22/2023 4:17 pm COMPARISON: Lumbar radiographs 02/12/2019. HISTORY: ORDERING SYSTEM PROVIDED HISTORY: TECHNOLOGIST PROVIDED HISTORY: Reason for Exam: Acute left lower back pain. Numbness and tingling. Denies injury. FINDINGS: 5 lumbar type vertebral bodies are identified. Slight levocurvature versus patient positioning. Sagittal alignment is normal. Normal vertebral body and intervertebral disc heights. Small endplate osteophytes at multiple levels. No significant facet arthrosis. No evident pars defect. The included pelvic ring and sacrum appear intact. Mild osteophytosis of bilateral sacroiliac joints. Cholecystectomy clips. Intrauterine device. IMPRESSION: 1. No compression deformity or significant listhesis. 2. Minimal spondylosis. If there is further concern for radiculopathy, consider MRI as deemed clinically warranted. Electronically signed By Wil Stanton DO 03/26/2023 1:34:53 PM EST Workstation ID : [id number] < > Reported By: WIL STANTON D.O. Signed In Fluency By: WIL STANTON D.O. << Signature on File>> Reported By: WIL STANTON D.O. Signed By: WIL STANTON D.O. Tests performed at: [address] [address] Normal [facility] XR LUMBAR SPNE COMP 6V AP/LA T/BOTH OBL/FLEX/EXT (AK[facility] (RENALDO) MADELYN JUAREZ ([id number]) 1970 F Date Time Provider Department 03/19/23 JESSIE LOZOYA During your visit today, we recorded the following information about you: Jessie Lozoya APRN.[facility] 03/19/2023 7:42 PM Signed Please notify patient that urine culture was negative for remarkable bacteria growth. Continue antibiotic for skin issue. If s/s persist post-antibiotic completion, follow up with PCP. Thanks Allergies As of Date: 03/19/2023 Noted Allergy Reaction METRONIDAZOLE 11/16/2016 8 - GI Upset Comments: Flagyl ARMODAFINIL 09/26/2021 14 - Other: See Comments MILK 10/23/2019 8 - GI Upset PENICILLINS 02/22/2018 12 - Shortness of Breath SHRIMP 10/23/2019 8 - GI Upset Date Reviewed: 03/18/2023 Reviewed by: Lorena Pro MA - Fully Assessed Reason for Visit: Results [95] Prescriptions as of 03/19/2023 - HYDROcodone-acetamino phen (NORCO) 5-325 mg per tablet Take 1 tablet by mouth. - sulfamethoxazole-trim ethoprim (BACTRIM DS) 800-160 mg per tablet Take 1 tablet by mouth twice daily for 10 days. - Hyoscyamine Sulfate 0.125 mg/5 mL elix - levocetirizine 5 mg tablet 5 mg. - metoprolol succinate ER (TOPROL XL) 50 mg 24 hr tablet once daily. - lipase/protease/amyla se (CREON ORAL) Take by mouth once daily. - atorvastatin (LIPITOR) 40 mg tablet Take 40 mg by mouth once daily. - ezetimibe (ZETIA) 10 mg tablet Take 10 mg by mouth once daily. For 30 days Problem List As Of Date 03/19/2023 Noted Resolved Ureteral stone [N20.1] 05/17/2022 Other chronic pancreatitis (HCC) [K86.1] 05/17/2022 Encounter Status:Closed by JESSIE LOZOYA on 03/19/23 Normal [facility] URINE CULTUREon 03-19-2023 Bacteria identified Cx Nom (U) XXX [facility] Bacteria Ur Culton Bacteria identified Cx Nom (U) ORGANISM ID: 1 50,000-<100,000 CFU/ml Mixed microbiota No further workup Normal [facility] Comment on above: Performed By: #### 6 30-4 #### [facility] CLIA [id number] [address] [place] [address] [place] CNOVon 03-18-2023 CNOV Office Visit (UCUPNO ) MADELYN JUAREZ ([id number]) 1970 F Date Time Provider Department 03/18/23 1:40 PM ESTHER MENDEZ During your visit today, we recorded the following information about you: Temperature Pulse Respiration Blood pressure 98.6 degrees 80/minute 20/minute 144/83 Weight Last Period 89.8 kg 03/06/23 Esther Mendez APRN.[employer] 03/18/2023 2:28 PM Signed March 18, 2023 Subjective Chief Complaint: Back Pain (Low back pa x 2 nights/Pt states that she also has a bug bite to the inner left thigh that is red,itches,warm to touch noticed this on 3wks though it was poison karely then 2 nights ago she noticed some low back pa and is not sure it it related/Pt states that she has a kidney stone in the past /) HPI: Madelyn Juarez is a 52 year old female who presents today for low back pain for 2 days along with urinary frequency. Denies fever, chills. Also has left upper thigh redness that is getting bigger. Reports there are 2 insect bite sites. She worked in her flower bed x3 weeks ago and has noticed this but it keeps getting worse and not better. PAST MEDICAL HISTORY Diagnosis Date Cholecystitis Hypercholesterolemia IBS (irritable bowel syndrome) Kidney stone Sinus tachycardia PAST SURGICAL HISTORY Procedure Laterality Date D AND C NASAL ENDOS,DIAG,UNI/ BILATERAL RADIUS/ULNER FX ORTH Left REMOVAL GALLBLADDER FAMILY HISTORY Problem Relation Age of Onset Breast Cancer Mother Cancer Mother Bone Breast Cancer Other 2 Aunts Colon Cancer Maternal Grandfather Social History Tobacco Use Smoking status: Never Smokeless tobacco: Never Vaping Use Vaping Use: Never used Substance Use Topics Alcohol use: Not Currently ALLERGIES Allergen Reactions Metronidazole GI Upset Flagyl Armodafinil Other: See Comments Milk GI Upset Penicillins Shortness of Breath Shrimp GI Upset There is no immunization history on file for this patient. Current Medications: HYDROcodone-acetamino phen (NORCO) 5-325 mg per tablet Take 1 tablet by mouth. Hyoscyamine Sulfate 0.125 mg/5 mL elix levocetirizine 5 mg tablet 5 mg. metoprolol succinate ER (TOPROL XL) 50 mg 24 hr tablet once daily. lipase/protease/amyla se (CREON ORAL) Take by mouth once daily. atorvastatin (LIPITOR) 40 mg tablet Take 40 mg by mouth once daily. ezetimibe (ZETIA) 10 mg tablet Take 10 mg by mouth once daily. For 30 days ezetimibe (ZETIA) 10 mg tablet once daily. metoprolol succinate ER (TOPROL XL) 50 mg 24 hr tablet Take 50 mg by mouth once daily. Review of Systems Constitutional: Negative. HENT: Negative. Eyes: Negative. Respiratory: Negative. Cardiovascular: Negative. Gastrointestinal: Negative. Genitourinary: Positive for frequency. Musculoskeletal: Negative. Skin: Positive for rash (left upper inner thigh). Neurological: Negative. Objective BP 144/83 Pulse 80 Temp 98.6 Resp 20 Wt 198 lb (89.8kg) SpO2 98% LMP 03/06/2023 Physical Exam Vitals and nursing note reviewed. Constitutional: Appearance: Normal appearance. HENT: Head: Normocephalic and atraumatic. Right Ear: Tympanic membrane, ear canal and external ear normal. There is no impacted cerumen. Left Ear: Tympanic membrane, ear canal and external ear normal. There is no impacted cerumen. Nose: Nose normal. Mouth/Throat: Mouth: Mucous membranes are moist. Pharynx: Oropharynx is clear. Eyes: Extraocular Movements: Extraocular movements intact. Conjunctiva/sclera: Conjunctivae normal. Pupils: Pupils are equal, round, and reactive to light. Cardiovascular: Rate and Rhythm: Normal rate and regular rhythm. Pulses: Normal pulses. Heart sounds: Normal heart sounds. Pulmonary: Effort: Pulmonary effort is normal. Breath sounds: Normal breath sounds. Abdominal: General: Bowel sounds are normal. Palpations: Abdomen is soft. Tenderness: There is no right CVA tenderness or left CVA tenderness. Musculoskeletal: General: Normal range of motion. Cervical back: Normal range of motion and neck supple. Skin: General: Skin is warm and dry. Findings: Erythema and rash present. Neurological: General: No focal deficit present. Mental Status: She is alert and oriented to person, place, and time. Psychiatric: Mood and Affect: Mood normal. ASSESSMENT/PLAN: 1. Acute midline low back pain without sciatica - ICD9: 724.2, ICD10: M54.50 (primary diagnosis) - UA DIP B/O 2. Urinary frequency - ICD9: 788.41, ICD10: R35.0 -Acute - UA positive for derick esterase - Send urine for culture - Begin treatment with Bactrim DS BID for 10 days - Patient education for prevention given - UA DIP B/O 3. Insect bite of left thigh, initial encounter - ICD9: 916.4, E906.4, ICD10: S70.362A, W57.XXXA 4. Cellulitis of left thigh - ICD9: 682.6, ICD10: L03.116 - Begin treatment with Trimethoprim-sulfamet hozazol (more content not included)... Normal [facility] HCG QUAL UR B/Oon 03-18-2023 status Negative neg - pos [facility] Quality Check Yes [facility] UA DIP B/Oon 03-18-2023 Bilirubin, Urine Negative Neg [facility] Color/Appearance yellow/clear [facility] Glucose Ql (U) Negative Neg mg/dL [facility] Hemoglobin/Blood,Ur Negative Neg [facility] Ketones Ql (U) Negative Neg [facility] Leukocytes trace Neg [facility] Nitrite Ql (U) Negative Neg [facility] pH (U) 7.0 [pH] 4.5 - 8.0 [facility] Protein.monoclonal (U) [Mass/Vol] Negative Neg mg/dL [facility] Specific [place], Ur 1.020 1.005 - 1.030 C [facility] Urobilinogen, Urine 1.0 EU Normal ( <1.1) EU [facility] Urine Cultureon 03-18-2023 Bacteria identified Cx Nom (U) CULTURE, URINE MIXED MICROBIOTA 50,000-<100,000 CFU/ml Mixed microbiota No further workup Urine, Midstream clean catch SOURCE: Urine, Midstream clean catch Test Performed By: [facility] [address] [place] [address] Interface Control Officer: Kayode Eller III, M.D. See Below Normal [facility] CNOVon 06-22-2022 CNOV Office Visit (UROUPD ) MADELYN JUAREZ ([id number]) 1970 F Date Time Provider Department 06/22/22 9:00 AM JOSEPHINE KINGSTON During your visit today, we recorded the following information about you: Pulse Blood pressure Weight Height 75/minute 136/85 86.2 kg 1.651 m Josephine Kingston MD 06/22/2022 10:22 AM Signed June 22, 2022 Reason for Appointment Patient presents with: Follow Up: Denies any new urinary pain or problems. HPI Madelyn Juarez is a 52 year old female who presents today for a follow-up appointment. The patient said that she is feeling good. She underwent an ultrasound which was negative for hydronephrosis. The ultrasound was suggestive of a 4 mm stone in her right kidney however her CT scan just 3 weeks prior was negative for any nephrolithiasis. I told her that it is highly unlikely that she has any residual calculi at this point. The patient really had no clinical complaints. Current Medications Hyoscyamine Sulfate 0.125 mg/5 mL elix levocetirizine 5 mg tablet 5 mg. metoprolol succinate ER (TOPROL XL) 50 mg 24 hr tablet once daily. lipase/protease/amyla se (CREON ORAL) Take by mouth once daily. atorvastatin (LIPITOR) 40 mg tablet Take 40 mg by mouth once daily. ezetimibe (ZETIA) 10 mg tablet Take 10 mg by mouth once daily. For 30 days ezetimibe (ZETIA) 10 mg tablet once daily. metoprolol succinate ER (TOPROL XL) 50 mg 24 hr tablet Take 50 mg by mouth once daily. PAST MEDICAL HISTORY Diagnosis Date Cholecystitis Hypercholesterolemia IBS (irritable bowel syndrome) PAST SURGICAL HISTORY Procedure Laterality Date D AND C NASAL ENDOS,DIAG,UNI/ BILATERAL RADIUS/ULNER FX ORTH Left REMOVAL GALLBLADDER FAMILY HISTORY Problem Relation Age of Onset Breast Cancer Mother Cancer Mother Bone Breast Cancer Other 2 Aunts Colon Cancer Maternal Grandfather Social History Tobacco Use Smoking status: Never Smokeless tobacco: Never Vaping Use Vaping Use: Never used Substance Use Topics Alcohol use: Not Currently ALLERGIES Allergen Reactions Metronidazole Unknown Armodafinil Other: See Comments Milk GI Upset Penicillins Unknown Shrimp GI Upset Objective BP 136/85 Pulse 75 Ht 5' 5 (1.65m) Wt 190 lb (86.2kg) BMI 31.62 kg/(m2). Physical Exam Constitutional: Appearance: Normal appearance. Pulmonary: Effort: Pulmonary effort is normal. Neurological: Mental Status: She is alert and oriented to person, place, and time. ASSESSMENT/PLAN: 1. Ureteral stone - ICD9: 592.1, ICD10: N20.1 The patient successfully passed her stone. Her urinalysis was negative. We will see her back on an as-needed basis. We discussed basic strategies to prevent stone recurrence today. Josephine Kingston MD Follow Up Return if symptoms worsen or fail to improve. Referring Provider: SELF [200] Allergies As of Date: 06/22/2022 Noted Allergy Reaction METRONIDAZOLE 11/16/2016 16 - Unknown ARMODAFINIL 09/26/2021 14 - Other: See Comments MILK 10/23/2019 8 - GI Upset PENICILLINS 02/22/2018 16 - Unknown SHRIMP 10/23/2019 8 - GI Upset Date Reviewed: 06/22/2022 Reviewed by: Christine Franco - Fully Assessed Reason for Visit: Follow Up [171] Cmt: Denies any new urinary pain or problems. Primary Visit Diagnosis:Ureteral stone [N20.1] Order(s):UA DIP, URINE (POC) [[id number]] Order #: [id number] UA DIP, URINE (POC) [[id number]] Order #: [id number]. #:[id number] Prescriptions as of 06/22/2022 - Hyoscyamine Sulfate 0.125 mg/5 mL elix - levocetirizine 5 mg tablet 5 mg. - ezetimibe (ZETIA) 10 mg tablet once daily. - metoprolol succinate ER (TOPROL XL) 50 mg 24 hr tablet once daily. - lipase/protease/amyla se (CREON ORAL) Take by mouth once daily. - atorvastatin (LIPITOR) 40 mg tablet Take 40 mg by mouth once daily. - ezetimibe (ZETIA) 10 mg tablet Take 10 mg by mouth once daily. For 30 days - metoprolol succinate ER (TOPROL XL) 50 mg 24 hr tablet Take 50 mg by mouth once daily. Problem List As Of Date 06/22/2022 Noted Resolved Ureteral stone [N20.1] 05/17/2022 Other chronic pancreatitis (HCC) [K86.1] 05/17/2022 Disposition: Return if symptoms worsen or fail to improve. Follow-up and Disposition History for Encounter Date Provider Department Center 06/22/2022 [id number]-TDXYGJOSEPHINE KINGSTON*[facility] Encounter Status:Closed by JOSEPHINE KINGSTON on 06/22/22 Normal [facility] UA DIP, URINE (POC)on 2021 BILIRUBIN UA (POCT) Negative Negative [facility] CLARITY UA (POCT) Slightly Cloudy Cl [facility] COLOR UA (POCT) Yellow [facility] GLUCOSE UA (POCT) Negative Negative mg/dL [facility] HEMOGLOBIN/BLOOD UA (POCT) Negative Negative [facility] KETONE UA (POCT) Negative Negative mg/dL [facility] LEUKOCYTES UA (POCT) Negative Negative [facility] NITRITE UA (POCT) Negative Negative [facility] PH UA (POCT) 5.5 4.5 - 8.0 [facility] Protein Ql (U) Negative Negative mg/dL [facility] SPECIFIC GRAVITY UA (POCT) 1.025 1.005 - 1.030 [facility] UROBILINOGEN UA (POCT) 0.2 E.U./dL Normal E.U./dL [facility] AMYLASEon 05-23-2022 Amylase [Catalytic activity/Vol] 62 U/L Normal 28-100 [facility] Comment on above: Performed By: #### L 100.0350, L100.0340 #### ML - [facility] [address] [place] [address] AMYLASE BLDon 05-23-2022 Amylase [Catalytic activity/Vol] 62 U/L 28 - 100 U/L [facility] LIPASEon 05-23-2022 Lipase [Catalytic activity/Vol] 47 U/L Normal 13-60 [facility] Comment on above: Performed By: #### L 100.0350, L100.0340 #### ML - [facility] [address] [place] [address] LIPASE BLDon 05-23-2022 Lipase [Catalytic activity/Vol] 47 U/L 13 - 60 U/L [facility] RETROPERITONEAL COMPLETEo n 05-23-2022 US RETROPERITONEAL COMPLETE [place] [address] Name: MADELYN JUAREZ Phys: JOSEPHINE KINGSTON M.D. : [birth year] Age: 52 Sex: F Acct: [id number] Loc: RAD US Exam Date: 05/23/22 Status: REG CLI Radiology No.: Unit Number: [id number] Exam # Type/Exam [id number] US / US RETROPERITONEAL COMPLETE HISTORY: Ureteral calculus COMPARISON: CT 01 May 2022 FINDINGS: The right kidney measures 9.9 cm in length. There is a 4 mm stone in the mid kidney. There is no hydronephrosis. The cortex is within normal limits for thickness and echogenicity. The left kidney measures 9.7 cm in length. There is no hydronephrosis. The cortex is within normal limits for thickness and echogenicity. The bladder is normal in appearance. IMPRESSION: Small right renal calcification. Otherwise unremarkable. Electronically signed By Master Turner MD 05/24/2022 1:22:41 PM EST Workstation ID : [id number] < > Reported By: MASTER TURNER M.D. Signed In Fluency By: MASTER TURNER M.D. << Signature on File>> Reported By: MASTER TURNER M.D. Signed By: MASTER TURNER M.D. Tests performed at: [place] [address] Normal [facility] Bacteria Ur Culton 2 Bacteria identified Cx Nom (U) [id number] Normal [facility] Comment on above: Order Comment: Speci men Type: URINE SPECIMEN Ordering Facility: [facility] Address: [address] [place] [address] Result Comment: >=10 0,000 CFU/ml Normal urogenital byron Performed By: #### 6 30-4 #### [facility] [id number] [address] [place] [address] OF [facility] CNOVon 05-17-2022 CNOV Office Visit (UROUPD ) MADELYN JUAREZ ([id number]) 1970 F Date Time Provider Department 05/17/22 8:15 AM JOSEPHINE KINGSTON During your visit today, we recorded the following information about you: Pulse Blood pressure Weight Height 69/minute 140/77 87.2 kg 1.651 m Josephine Kingston MD 05/17/2022 9:08 AM Signed May 17, 2022 Reason for Appointment Patient presents with: Consult: Patient is here for kidney stone. She was in the ER on 05/02/22. She is not having any pain. HPI Madelyn Juarez is a 52 year old female who presents today for further evaluation of a 2 mm right UVJ stone. The patient was in the emergency room about 2 weeks ago with severe right-sided flank pain. She underwent a CT scan which I personally reviewed with her. The patient did have a 2 mm stone at the right UVJ causing hydroureteronephrosis . There were no proximal ureteral stones. The patient also had an elevated lipase at that time. She said that she was not having abdominal pain but right flank pain. She denies any fever or chills. Today she also denies any dysuria, urgency, or frequency. Current Medications lipase/protease/amyla se (CREON ORAL) Take by mouth once daily. atorvastatin (LIPITOR) 40 mg tablet Take 40 mg by mouth once daily. ezetimibe (ZETIA) 10 mg tablet Take 10 mg by mouth once daily. For 30 days ezetimibe (ZETIA) 10 mg tablet once daily. metoprolol succinate ER (TOPROL XL) 50 mg 24 hr tablet once daily. metoprolol succinate ER (TOPROL XL) 50 mg 24 hr tablet Take 50 mg by mouth once daily. PAST MEDICAL HISTORY Diagnosis Date Cholecystitis Hypercholesterolemia IBS (irritable bowel syndrome) PAST SURGICAL HISTORY Procedure Laterality Date D AND C NASAL ENDOS,DIAG,UNI/ BILATERAL RADIUS/ULNER FX ORTH Left REMOVAL GALLBLADDER FAMILY HISTORY Problem Relation Age of Onset Breast Cancer Mother Cancer Mother Bone Breast Cancer Other 2 Aunts Colon Cancer Maternal Grandfather Social History Tobacco Use Smoking status: Never Smokeless tobacco: Never Substance Use Topics Alcohol use: Not Currently ALLERGIES Allergen Reactions Metronidazole Unknown Armodafinil Other: See Comments Milk GI Upset Penicillins Unknown Shrimp GI Upset Objective BP 140/77 Pulse 69 Ht 5' 5 (1.65m) Wt 192 lb 4.8 oz (87.2kg) SpO2 93% BMI 32.00 kg/(m2). Physical Exam Constitutional: Appearance: Normal appearance. Pulmonary: Effort: Pulmonary effort is normal. Abdominal: Comments: No CVAT, no abdominal tenderness Neurological: Mental Status: She is alert and oriented to person, place, and time. ASSESSMENT/PLAN: 1. Ureteral stone - ICD9: 592.1, ICD10: N20.1 (primary diagnosis) The patient likely passed a small stone in her right ureter. I recommended we get an ultrasound to ensure resolution of the hydronephrosis. We discussed basic strategies to prevent stone recurrence as well. We will send her urine for culture and plan to recheck her urine when she returns. - UA DIP, URINE (POC) - US KIDNEY/BLADDER - URINE CULTURE 2. Other chronic pancreatitis (HCC) - ICD9: 577.1, ICD10: K86.1 The patient had an elevated lipase. I recommended that we repeat her pancreatic enzymes to ensure that they have returned to normal. - LIPASE BLD - AMYLASE BLD Josephine Kingston MD Follow Up Return for After u/s, UA. Referring Provider: SELF [200] Allergies As of Date: 05/17/2022 Noted Allergy Reaction METRONIDAZOLE 11/16/2016 16 - Unknown ARMODAFINIL 09/26/2021 14 - Other: See Comments MILK 10/23/2019 8 - GI Upset PENICILLINS 02/22/2018 16 - Unknown SHRIMP 10/23/2019 8 - GI Upset Date Reviewed: 12/08/2019 Reviewed by: Josefina Riley - Fully Assessed Reason for Visit: Consult [173] Cmt: Patient is here for kidney stone. She was in the ER on 05/02/22. She is not having any pain. Primary Visit Diagnosis:Ureteral stone [N20.1] Other Visit Diagnosis:Other chronic pancreatitis (HCC) [K86.1] Order(s):UA DIP, URINE (POC) [8150775] Order #: [id number] LIPASE BLD [SQLIPA] Order #: [id number] FUTURE AMYLASE BLD [SQAMYL] Order #: [id number] FUTURE US KIDNEY/BLADDER [5469531] Order #: [id number] FUTURE URINE CULTURE [SQURCUL] Order #: [id number] Prescriptions as of 05/17/2022 - ezetimibe (ZETIA) 10 mg tablet once daily. - metoprolol succinate ER (TOPROL XL) 50 mg 24 hr tablet once daily. - lipase/protease/amyla se (CREON ORAL) Take by mouth once daily. - atorvastatin (LIPITOR) 40 mg tablet Take 40 mg by mouth once daily. - ezetimibe (ZETIA) 10 mg tablet Take 10 mg by mouth once daily. For 30 days - metoprolol succinate ER (TOPROL XL) 50 mg 24 hr tablet Take 50 mg by mouth once daily. Problem List As Of Date 05/17/2022 Noted Resolved Ureteral stone [N20.1] 05/17/2022 Other chronic pancreatitis (HCC) [K86.1] 05/17/2022 Medications Discontinued During This (more content not included)... Normal [facility] Urine Cultureon 05-17-2022 Bacteria identified Cx Nom (U) CULTURE, URINE NORMAL UROGENITAL BYRON >=100,000 CFU/ml Normal urogenital byron Urine, Midstream clean catch SOURCE: Urine, Midstream clean catch Test Performed By: [facility] [address] [place] [address] Interface Control Officer: Kayode Eller III, M.D. See Below Normal [facility] BEE SCREENING W Tavo 05-11 [facility] BHCG (SERUM)on 2022 B-HCG (SERUM) Negative Normal NEGATIVE [facility] Comment on above: Result Comment: Serum Test is more Sensitive than a Urine Test. Please Note Threshold Values: SERUM - 10mlU/mL URINE - 20mlU/mL Performed By: #### L 200.4092 #### ML - LAB[facility]AT[facility] [address] [place] [address] BMPon 2022 Anion gap [Moles/Vol] 15.9 mmol/L Normal 15-22 [facility] Comment on above: Performed By: #### L 100.0010, L100.0350, L100.0030 #### ML - LABORATORY [address] [place] [address] Calcium [Mass/Vol] 9.9 mg/dL Normal 8.6-10.0 [facility] Comment on above: Performed By: #### L 100.0010, L100.0350, L100.0030 #### ML - [facility]AT[facility] [address] [place] [address] Chloride [Moles/Vol] 100 mmol/L Normal 98-107 [facility] Comment on above: Performed By: #### L 100.0010, L100.0350, L100.0030 #### ML - LABORATORY [address] [place] [address] CO2 [Moles/Vol] 28 mmol/L Normal 22-29 [facility] Comment on above: Performed By: #### L 100.0010, L100.0350, L100.0030 #### ML - LABORATORY [address] [place] [address] Creatinine [Mass/Vol] 0.87 mg/dL Normal 0.50-0.90 [facility] Comment on above: Performed By: #### L 100.0010, L100.0350, L100.0030 #### ML - LABORATORY [address] [place] [address] 73267 eGFR if AFR JOHNATHAN > 60 ml/min/1.73m2 Normal [facility] Comment on above: Result Comment: eGFR >= 60 Indicates normal kidney function. * eGFR IS AN ESTIMATE * (AFR JOHNATHAN = ) (non-AFR AM = NON-) MDRD calculation used in the eGFR should not be used to dose medications. For further limitations of the eGFR please refer to the Physician Website or the National Kidney Disease Education Program website (www.nkdep.nih.gov). Performed By: #### L 100.0010, L100.0350, L100.0030 #### ML - [facility]ATORY [address] [place] [address]49[address] eGFR nonAFR Johnathan > 60 ml/Min/1.73m2 Normal U [facility] Comment on above: Performed By: #### L 100.0010, L100.0350, L100.0030 #### ML - LAB[facility]AT[facility] [address] [place] [address]147 Glucose [Mass/Vol] 120 mg/dL High 74-106 [facility] Comment on above: Performed By: #### L 100.0010, L100.0350, L100.0030 #### - LABORATORY [address] [place] [address] 49658 Potassium [Moles/Vol] 3.9 mmol/L Normal 3.5-5.0 [facility] Comment on above: Performed By: #### L 100.0010, L100.0350, L100.0030 #### - LABORATORY [address] [place] [address] Sodium [Moles/Vol] 140 mmol/L Normal 135-145 [facility] Comment on above: Performed By: #### L 100.0010, L100.0350, L100.0030 #### - LABORATORY [address] [place] [address] 44415 Urea nitrogen [Mass/Vol] 11 mg/dL Normal 6-20 [facility] Comment on above: Performed By: #### L 100.0010, L100.0350, L100.0030 #### - LABORATORY [address] [place] [address] CBCon 2022 BASO# 0.00 x10(3) Normal 0.00-0.10 [facility] Comment on above: Performed By: #### L 200.0010 ####ML - [address]NMZCCJ[address] [place] [address] Basophils/100 WBC (Bld) 0.3 % Normal 0.0-1.0 [facility] Comment on above: Performed By: #### L 200.0010 ####ML - [address] [place] [address] EOS# 0.10 x10(3) Normal 0.00-0.54 [facility] Comment on above: Performed By: #### L 200.0010 ####ML - NTPD[address] [place] [address] Eosinophils/100 WBC (Bld) 0.8 % Normal 0.5-4.9 [facility] Comment on above: Performed By: #### L 200.0010 ####ML - [address] [place] [address] 06046 Erythrocyte distribution width (RBC) [Ratio] 13.7 % Normal 12.5-15.7 [facility] Comment on above: Performed By: #### L 200.0010 ####ML - Q[address]WHYD[address] [place] [address] 0[address] Hematocrit (Bld) [Volume fraction] 41.3 % Normal 36.0-48.0 [facility] Comment on above: Performed By: #### L 200.0010 ####ML - T[address]TNS[address] [place] [address] 86604 Hemoglobin (Bld) [Mass/Vol] 14.1 g/dL Normal 12.0-16.0 [facility] Comment on above: Performed By: #### L 200.0010 ####ML - [address]YQNJS[address] [place] [address] LYMPH# 1.40 x10(3) Normal 1.00-3.50 [facility] Comment on above: Performed By: #### L 200.0010 ####ML [facility] [address] [place] [address] 18278 Lymphocytes/100 WBC (Bld) 13.1 % Low 16.0-48.0 [facility] Comment on above: Performed By: #### L 200.0010 ####ML - [address]OKGJTVFS[address] [place] [address] MCH (RBC) [Entitic mass] 31.7 pg Normal 28.5-32.9 [facility] Comment on above: Performed By: #### L 200.0010 ####ML - VZ[address]YJ[address] [place] [address] 25478 MCHC (RBC) [Mass/Vol] 34.1 g/dL Normal 33.0-36.0 [facility] Comment on above: Performed By: #### L 200.0010 ####ML - [address] [place] [address] 71390 MCV (RBC) [Entitic vol] 93.0 fL Normal 80.0-99.0 [facility] Comment on above: Performed By: #### L 200.0010 ####ML - [address] [place] [address] 32879 MONO# 0.60 x10(3) Normal 0.30-0.80 [facility] Comment on above: Performed By: #### L 200.0010 ####ML - [address] [place] [address] 21091 Monocytes/100 WBC (Bld) 5.6 % Normal 4.3-11.2 [facility] Comment on above: Performed By: #### L 200.0010 ####ML [facility] [address] [place] [address] 98707 NEUT# 8.70 x10(3) High 1.40-6.50 [facility] Comment on above: Performed By: #### L 200.0010 ####ML - U[address]NIJSJ[address] [place] [address] 35417 Neutrophils/100 WBC (Bld) 80.2 % High 45.0-73.0 [facility] Comment on above: Performed By: #### L 200.0010 ####ML - X[address]NE[address] [place] [address] 40115 Platelet mean volume (Bld) [Entitic vol] 8.3 fL Normal 7.5-9.5 [facility] Comment on above: Performed By: #### L 200.0010 ####ML - UH [address]ALRZWFRE[address] [place] [address] PLT 226 X10(3) Normal 150-450 [facility] Comment on above: Performed By: #### L 200.0010 ####ML - UH [address]LY[address] [place] [address] RBC 4.45 x10(6) Normal 3.30-5.00 [facility] Comment on above: Performed By: #### L 200.0010 ####ML - UH [address]UX[address] [place] [address] WBC 10.9 x10(3) High 4.5-10.0 [facility] Comment on above: Performed By: #### L 200.0010 ####ML - UH [address]YAXQI[address] [place] [address] ED PROV NOTEon 2022 ED PROV NOTE HNO ID: [id number] Author: Seferino Espinal Service: ? Author Type: Physician Type: ED Provider Notes Filed: 05/07/2022 11:01 AM Note Text: [place] [address] HEALTH INFORMATION MANAGEMENT EMERGENCY DEPARTMENT REPORT Patient: LARRYMADELYN SEFERINO ESPINAL D.O. [id number] F Status: DEP ER ED Date of Service: 05/01/22 CHIEF COMPLAINT: Right flank pain started this afternoon. ALLERGIES: Penicillin, ampicillin, Flagyl, . SOCIAL HISTORY: Occasional alcohol use. PAST SURGICAL HISTORY: Cholecystectomy and left arm surgery. PAST MEDICAL HISTORY: Significant for pancreatitis. FAMILY HISTORY: Noncontributory. HISTORY OF PRESENT ILLNESS: The patient is a 51-year-old female presenting to Emergency Department with chief complaint of right flank pain. She states that this was an acute onset at 4 o'clock. The patient states that she has had no diarrhea. Last bowel movement was normal. The patient states that she did have a Pap smear earlier today, does not know if it is related to that or not. She denies any dysuria, frequency, or urgency. She admits to vomiting once, but does have nausea still. She states she never really had anything like this before, but it kind of reminds her at the time she had pancreatitis in the past. REVIEW OF SYSTEMS: Negative except for HPI. PHYSICAL EXAMINATION: GENERAL: The patient is alert and appears to be in no acute distress. She is cooperative with the exam. VITAL SIGNS: Stable. Blood pressure is 168/101, temperature is 97.8, pulse is 77, respiratory rate is 18, and O2 sat is 97% on room air. HEENT: The head is normocephalic and atraumatic. Eyes, pupils are equal. Normal conjunctivae. SKIN: Dry. HEART: Regular rate and rhythm. I did not appreciate any murmurs, gallops, or rubs. LUNGS: Clear to auscultation bilaterally. No wheeze or rhonchi. ABDOMEN: Soft and nontender to palpation. She did have some right CVA and flank tenderness to palpation. No peritoneal signs. No rebound, rigidity, or guarding. No signs of surgical abdomen. EMERGENCY DEPARTMENT CLINICAL COURSE: The patient was hemodynamically stable, nonseptic, and nontoxic while here in the Emergency Department. I did get lab work. The patient had white count of 10.9, stable hemoglobin and hematocrit, platelet count was normal. Chemistry panel was unremarkable. Lipase was 216. test was negative. Urinalysis did not show any obvious signs of infection. I did get a CT scan of the abdomen and pelvis which showed moderate right hydronephrosis with a 2- mm stone at the right UVJ. At this point, upon re-evaluation the patient states she is feeling better. I think the patient can be discharged home. I do not think any further tests or imaging is required here today. I am going to give her urology followup, prescription for Vandergrift, Zofran, as well as antibiotic empirically to try to prevent infection. She is to return to the Emergency Department if symptoms worsen or if new symptoms develop. IMPRESSION: Right-sided kidney stone. DISPOSITION: The patient will be discharged home. Report#: Dict ID [id number] / Int ID [id number] 05/07/22 1059 SEFERINO ESPINAL D.O. cc: Loreta GARCÍA D.O.; SEFERINO ESPINAL D.O. << Signature on File>> Reported By: SEFERINO ESPINAL D.O. Signed By: SEFERINO ESPINAL D.O. Tests performed at: [facility] [address] [place], [place] [address] Normal [facility] EMERGENCY DEPARTMENT REPORTo n 2022 [place]ER[place]ENC[place] [address] HEALTH INFORMATION MANAGEMENT EMERGENCY DEPARTMENT REPORT Patient: MADELYN JUAREZ SEFERINO ESPINAL D.O. [id number] F Status: DEP ER ED Date of Service: 05/01/22 CHIEF COMPLAINT: Right flank pain started this afternoon. ALLERGIES: Penicillin, ampicillin, Flagyl, . SOCIAL HISTORY: Occasional alcohol use. PAST SURGICAL HISTORY: Cholecystectomy and left arm surgery. PAST MEDICAL HISTORY: Significant for pancreatitis. FAMILY HISTORY: Noncontributory. HISTORY OF PRESENT ILLNESS: The patient is a 51-year-old female presenting to Emergency Department with chief complaint of right flank pain. She states that this was an acute onset at 4 o'clock. The patient states that she has had no diarrhea. Last bowel movement was normal. The patient states that she did have a Pap smear earlier today, does not know if it is related to that or not. She denies any dysuria, frequency, or urgency. She admits to vomiting once, but does have nausea still. She states she never really had anything like this before, but it kind of reminds her at the time she had pancreatitis in the past. REVIEW OF SYSTEMS: Negative except for HPI. PHYSICAL EXAMINATION: GENERAL: The patient is alert and appears to be in no acute distress. She is cooperative with the exam. VITAL SIGNS: Stable. Blood pressure is 168/101, temperature is 97.8, pulse is 77, respiratory rate is 18, and O2 sat is 97% on room air. HEENT: The head is normocephalic and atraumatic. Eyes, pupils are equal. Normal conjunctivae. SKIN: Dry. HEART: Regular rate and rhythm. I did not appreciate any murmurs, gallops, or rubs. LUNGS: Clear to auscultation bilaterally. No wheeze or rhonchi. ABDOMEN: Soft and nontender to palpation. She did have some right CVA and flank tenderness to palpation. No peritoneal signs. No rebound, rigidity, or guarding. No signs of surgical abdomen. EMERGENCY DEPARTMENT CLINICAL COURSE: The patient was hemodynamically stable, nonseptic, and nontoxic while here in the Emergency Department. I did get lab work. The patient had white count of 10.9, stable hemoglobin and hematocrit, platelet count was normal. Chemistry panel was unremarkable. Lipase was 216. test was negative. Urinalysis did not show any obvious signs of infection. I did get a CT scan of the abdomen and pelvis which showed moderate right hydronephrosis with a 2- mm stone at the right UVJ. At this point, upon re-evaluation the patient states she is feeling better. I think the patient can be discharged home. I do not think any further tests or imaging is required here today. I am going to give her urology followup, prescription for Vander[place], Zofran, as well as antibiotic empirically to try to prevent infection. She is to return to the Emergency Department if symptoms worsen or if new symptoms develop. IMPRESSION: Right-sided kidney stone. DISPOSITION: The patient will be discharged home. Report#: Dict ID [id number] / Int ID [id number] 05/07/22 1059 SEFERINO ESPINAL D.O. cc: Loreta GARCÍA D.O.; SEFERINO ESPINAL D.O. << Signature on File>> Reported By: SEFERINO ESPINAL D.O. Signed By: SEFERINO ESPINAL D.O. Tests performed at: [address] [address] Normal [facility] HEPATIC PANELon 2022 A:G RATIO 1.58 Normal 1.1-2.5 [facility] Comment on above: Performed By: #### L 100.0010, L100.0350, L100.0030 #### ML - [facility] [address] [place] [address]3725 Albumin [Mass/Vol] 4.6 g/dL Normal 3.5-5.2 [facility] Comment on above: Performed By: #### L 100.0010, L100.0350, L100.0030 #### ML - LABORATORY [address] [place] [address] 22158 ALK. PHOS 91 U/L Normal 35-105 [facility] Comment on above: Performed By: #### L 100.0010, L100.0350, L100.0030 #### ML - LABORATORY [address] [place] [address] 60270 ALT [Catalytic activity/Vol] 17 U/L Normal 5-33 [facility] Comment on above: Performed By: #### L 100.0010, L100.0350, L100.0030 #### - LABORATORY [address] [place] [address] 14082 AST [Catalytic activity/Vol] 18 U/L Normal 5-32 [facility] Comment on above: Performed By: #### L 100.0010, L100.0350, L100.0030 #### - LABORATORY [address] [place] [address] 66822 Bilirubin [Mass/Vol] 0.4 mg/dL Normal 0.2-1.2 [facility] Comment on above: Performed By: #### L 100.0010, L100.0350, L100.0030 #### - LABORATORY [address] [place] [address]71 DIRECT BILIRUBI <0.2 Normal 0.0-0.3 [facility] Comment on above: Performed By: #### L 100.0010, L100.0350, L100.0030 #### ML - LABORATORY [address] [place] [address] 33865 Globulin (S) [Mass/Vol] 2.9 g/dL Normal 1.5-4.5 [facility] Comment on above: Performed By: #### L 100.0010, L100.0350, L100.0030 #### ML - LABORATORY [address] [place] [address] 24475 Protein [Mass/Vol] 7.5 g/dL Normal 6.4-8.3 [facility] Comment on above: Performed By: #### L 100.0010, L100.0350, L100.0030 #### ML - LABORATORY [address] [place] [address] LIPASEon 2022 Lipase [Catalytic activity/Vol] 216 U/L High 13-60 [facility] Comment on above: Performed By: #### L 100.0010, L100.0350, L100.0030 #### ML - LABORATORY [address] [place] [address] Basic metabolic 2000 panelon 05-01-2022 Anion gap [Moles/Vol] 15.9 mmol/L 15 - 22 mmol/L [facility] Calcium [Mass/Vol] 9.9 mg/dL 8.6 - 10. 0 mg/dL [facility] Chloride [Moles/Vol] 100 mmol/L 98 - 107 mmol/L [facility] CO2 [Moles/Vol] 28 mmol/L 22 - 29 mmol/L [facility] Creatinine [Mass/Vol] 0.87 mg/dL 0.50 - 0.90 mg/dL [facility] eGFR-All Other Races > 60 ml/Min/1.73m2 [facility] GFR/1.73 sq M.predicted among blacks MDRD (S/P/Bld) [Vol rate/Area] mL/min/{1.73_m2} [facility] Glucose [Mass/Vol] 120 mg/dL High 74 - 106 mg/dL [facility] Potassium [Moles/Vol] 3.9 mmol/L 3.5 - 5.0 mmol/L [facility] Sodium [Moles/Vol] 140 mmol/L 135 - 145 mmol/L [facility] Urea nitrogen [Mass/Vol] 11 mg/dL 6 - 20 mg/dL [facility] CBC W Auto Differential pane l (Bld)on 05-01-2022 BASO ABS 0.00 x10(3) 0.00 - 0.10 x10(3) [facility] Basophils/100 WBC (Bld) 0.3 % 0.0 - 1.0 % [facility] EOS ABS 0.10 x10(3) 0.00 - 0.54 x10(3) [facility] Eosinophils/100 WBC (Bld) 0.8 % 0.5 - 4.9 % [facility] Erythrocyte distribution width (RBC) [Ratio] 13.7 % 12.5 - 15.7 % [facility] Hematocrit (Bld) [Volume fraction] 41.3 % 36.0 - 48.0 % [facility] Hemoglobin (Bld) [Mass/Vol] 14.1 g/dL 12.0 - 16.0 g/dL [facility] LYMPH ABS 1.40 x10(3) 1.00 - 3.50 x10(3) [facility] Lymphocytes/100 WBC (Bld) 13.1 % Low 16.0 - 48.0 % [facility] MCH (RBC) [Entitic mass] 31.7 pg 28.5 - 32.9 pg [facility] MCHC (RBC) [Mass/Vol] 34.1 g/dL 33.0 - 36.0 g/dL [facility] MCV (RBC) [Entitic vol] 93.0 fL 80.0 - 99.0 fl [facility] MONO ABS 0.60 x10(3) 0.30 - 0.80 x10(3) [facility] Monocytes/100 WBC (Bld) 5.6 % 4.3 - 11.2 % [facility] Neutrophil Ab 8.70 x10(3) High 1.40 - 6.50 x10(3) [facility] Neutrophils/100 WBC (Bld) 80.2 % High 45.0 - 73.0 % [facility] Platelet Count 226 X10(3) 150 - 450 X10(3) [facility] Platelet mean volume (Bld) [Entitic vol] 8.3 fL 7.5 - 9.5 fl [facility] RBC 4.45 x10(6) 3.30 - 5.00 x10(6) [facility] WBC 10.9 x10(3) High 4.5 - 10.0 x10(3) [facility] CT ABD/PEL W CONTRASTon 08-0 CT ABD/PEL W CONTRAST [address] [address] Name: MADELYN JUAREZ Phys: SEFERINO ESPINAL D.O. : [birth year] Age: 51 Sex: F Acct: [id number] Loc: ED Exam Date: 05/01/22 Status: REG ER Radiology No.: Unit Number: [id number] Exam # Type/Exam [id number] CT / CT ABD/PEL W CONTRAST EXAMINATION: CT OF THE ABDOMEN AND PELVIS WITH CONTRAST05/01/2022 9:[address] ABDOMEN/PELVIS WITH CONTRAST EXAM DESCRIPTION: TECHNIQUE: CT of the abdomen and pelvis was performed with the administration of intravenous contrast. Multiplanar reformatted images are provided for review. Automated exposure control, iterative reconstruction, and/or weight based adjustment of the mA/kV was utilized to reduce the radiation dose to as low as reasonably achievable. COMPARISON: CT abdomen pelvis October 23, 2019 HISTORY: ORDERING SYSTEM PROVIDED HISTORY: TECHNOLOGIST PROVIDED HISTORY: Reason for Exam: flank pain FINDINGS: The size, density, and morphology of the liver, spleen, adrenals, kidneys, pancreas and unopacified loops of bowel are unremarkable. Prior cholecystectomy. Moderate right hydronephrosis with a 2 mm stone at the right UVJ. The opacified aorta demonstrates normal size and morphology without aneurysmal dilation or dissection. There are no enlarged lymph nodes by pathologic size criteria. There is no free fluid within the pelvis. IUD is noted. The bladder has an unremarkable CT appearance. The osseous structures are without gross lytic or sclerotic lesion. The lung bases are clear. IMPRESSION: Moderate right hydronephrosis with a 2 mm stone at the right UVJ. Electronically signed By Silvina Mcdonough MD 05/01/2022 11:25:55 PM EST Workstation ID : [id number] < > Reported By: SILVINA MCDONOUGH M.D. Signed In Fluency By: SILVINA MCDONOUGH M.D. << Signature on File>> Reported By: SILVINA MCDONOUGH M.D. Signed By: SILVINA MCDONOUGH M.D. Tests performed at: [address] [address] Normal [facility] CT ABD/PEL W IVCONon 022 [facility] HCG.beta subunit Qnon 2021 Beta hCG, Serum Negative NEGATIVE [facility] Hepatic function 2000 panelo n 05-01-2022 Albumin [Mass/Vol] 4.6 g/dL 3.5 - 5.2 g/dL [facility] Albumin/Globulin [Mass ratio] 1.58 {ratio} 1.1 - 2.5 [facility] ALP [Catalytic activity/Vol] 91 U/L 35 - 105 U/L [facility] ALT [Catalytic activity/Vol] 17 U/L 5 - 33 U/L [facility] AST [Catalytic activity/Vol] 18 U/L 5 - 32 U/L [facility] Bilirubin [Mass/Vol] 0.4 mg/dL 0.2 - 1.2 mg/dL [facility] Direct Bilirubin <0.2 0.0 - 0.3 mg/dL [facility] Globulin (S) [Mass/Vol] 2.9 g/dL 1.5 - 4.5 g/dL [facility] Protein [Mass/Vol] 7.5 g/dL 6.4 - 8.3 g/dL [facility] LIPASE BLDon 05-01-2022 Lipase [Catalytic activity/Vol] 216 U/L High 13 - 60 U/L [facility] URINALYSISon 05-01-2022 Bilirubin Ql (U) Negative Normal NEGATIVE [facility] Comment on above: Order Comment: Urine Specimen Source+ CLEAN CATCH Performed By: #### L 200.3000 ####ML - [id number] [place] [address] Color (U) YELLOW Normal YELLOW [facility] Comment on above: Order Comment: Urine Specimen Source+ CLEAN CATCH Performed By: #### L 200.3000 ####ML - [id number] [place] [address] Glucose Ql (U) Negative Normal NEGATIVE [facility] Comment on above: Order Comment: Urine Specimen Source+ CLEAN CATCH Performed By: #### L 200.3000 ####ML - [id number] [place] [address] Hemoglobin Ql (U) SMALL Normal NEGATIVE [facility] Comment on above: Order Comment: Urine Specimen Source+ CLEAN CATCH Performed By: #### L 200.3000 ####ML - [id number] [place] [address] Leukocyte esterase Test strip Ql (U) Negative Normal NEGATIVE [facility] Comment on above: Order Comment: Urine Specimen Source+ CLEAN CATCH Performed By: #### L 200.3000 ####ML - [id number] [place] [address] Nitrite Ql (U) Negative Normal NEGATIVE [facility] Comment on above: Order Comment: Urine Specimen Source+ CLEAN CATCH Performed By: #### L 200.3000 ####ML - UH [id number] [place] [address] pH (U) 6.0 [pH] Normal 5.0-8.0 [facility] Comment on above: Order Comment: Urine Specimen Source+ CLEAN CATCH Performed By: #### L 200.3000 ####ML - [facility] [address]SRNLAL[address] [place] [address] Protein Ql (U) Negative Normal NEGATIVE [facility] Comment on above: Order Comment: Urine Specimen Source+ CLEAN CATCH Performed By: #### L 200.3000 ####ML - [facility] [id number] [place] [address] URINE APPEARANC SL CLOUDY Normal CLEAR [facility] Comment on above: Order Comment: Urine Specimen Source+ CLEAN CATCH Performed By: #### L 200.3000 ####ML - [facility] [address]BALJANC[address] [place] [address] URINE KETONE TRACE Normal NEGATIVE [facility] Comment on above: Order Comment: Urine Specimen Source+ CLEAN CATCH Performed By: #### L 200.3000 ####ML - [facility] IWCT[address]IYKS[address] [place] [address] URINE SPECIFIC 1.025 Normal 1.001-1.035 [facility] Comment on above: Order Comment: Urine Specimen Source+ CLEAN CATCH Performed By: #### L 200.3000 ####ML - [facility] [id number] [place] [address] URINE UROBILINO 0.2 EU/DL Normal 0.2-1.0 [facility] Comment on above: Order Comment: Urine Specimen Source+ CLEAN CATCH Performed By: #### L 200.3000 ####ML - [facility] [address] [place] [address] URINALYSIS, DIPSTICK ONLYon 05-01-2022 Appearance (U) SL CLOUDY CLEAR [facility] Bilirubin, Urine Negative NEGATIVE [facility] Blood, Urine SMALL NEGATIVE [facility] Color (U) YELLOW YELLOW [facility] Glucose Ql (U) Negative NEGATIVE MG/DL [facility] Ketones Ql (U) TRACE NEGATIVE MG/DL [facility] Leukocytes Negative NEGATIVE [facility] Nitrites Urine Negative NEGATIVE [facility] pH (U) 6.0 [pH] 5.0 - 8.0 [facility] Protein.monoclonal (U) [Mass/Vol] Negative NEGATIVE MG/DL [facility] Specific [place], Ur 1.025 1.001 - 1.035 C [facility] Urobilinogen, Urine 0.2 EU/DL 0.2 - 1.0 EU/DL [facility] CBC W/DIFFon 10-28-2021 BASO ABS 0.00 K/CU MM Normal 0-0.2 [facility] Comment on above: Performed By: #### L 200.07807 #### [facility] [address] [place] [address] Basophils/100 WBC (Bld) 0.2 % Normal 0-2 [facility] Comment on above: Performed By: #### L 200.55559 #### [facility] [address] [place] [address] EOS ABS 0.10 K/CU MM Normal 0-0.5 [facility] Comment on above: Performed By: #### L 200.68953 #### [facility] [address] [place] [address] Eosinophils/100 WBC (Bld) 1.5 % Normal 0-5 [facility] Comment on above: Performed By: #### L 200.66720 #### [facility] [address] [place] [address] Erythrocyte distribution width (RBC) [Ratio] 13.7 % Normal 11-14.5 [facility] Comment on above: Performed By: #### L 200.96763 #### [facility] [address] [place] [address] Hematocrit (Bld) [Volume fraction] 38.3 % Normal 35.0-47.0 [facility] Comment on above: Performed By: #### L 200.85893 #### [facility] [address] [place] [address] Hemoglobin (Bld) [Mass/Vol] 13.4 g/dL Normal 11.5-15.5 [facility] Comment on above: Performed By: #### L 200.72671 #### [facility] [address] [place] [address] IMMATR GRAN ABS 0.00 K/CU MM Normal Less than 2 [facility] Comment on above: Performed By: #### L 200.16924 #### [facility] [address] [place] [address] IMMATURE GRAN % 0.5 % Normal Less than 2 [facility] Comment on above: Performed By: #### L 200.53986 #### [facility] [address] [place] [address] LYMPH ABS 2.60 K/CU MM Normal 0.9-4.4 [facility] Comment on above: Performed By: #### L 200.27473 #### [facility] [address] [place] [address] Lymphocytes/100 WBC (Bld) 29.5 % Normal 20-40 [facility] Comment on above: Performed By: #### L 200.88366 #### [facility] [address] [place] [address] MCHC (RBC) [Mass/Vol] 35.0 g/dL Normal 32.0-36.0 [facility] Comment on above: Performed By: #### L 200.60770 #### [facility] [address] [place] [address] MCV (RBC) [Entitic vol] 92.3 fL Normal 80.0-99.0 [facility] Comment on above: Performed By: #### L 200.35816 #### [facility] [address] [place] [address] MONO ABS 0.60 K/CU MM Normal 0.1-1.1 [facility] Comment on above: Performed By: #### L 200.05861 #### [facility] [address] [place] [address] Monocytes/100 WBC (Bld) 6.3 % Normal 2-10 [facility] Comment on above: Performed By: #### L 200.12991 #### [facility] [address] [place] [address] NEUTROPHIL ABS 5.40 K/CU MM Normal 2.0-8.3 [facility] Comment on above: Performed By: #### L 200.98499 #### [facility] [address] [place] [address] Neutrophils/100 WBC (Bld) 62.0 % Normal 45-75 [facility] Comment on above: Performed By: #### L 200.89009 #### [facility] [address] [place] [address] Nucleated RBC/100 WBC (Bld) [Ratio] 0.0 % Normal Less than 1 [facility] Comment on above: Performed By: #### L 200.56441 #### [facility] [address] [place] [address] Platelet mean volume (Bld) [Entitic vol] 10.1 fL Normal 9.4-12.4 [facility] Comment on above: Performed By: #### L 200.75938 #### [facility] [address] [place] [address] PLT 242 K/CU MM Normal 150-450 [facility] Comment on above: Performed By: #### L 200.63829 #### [facility] [address] [place] [address] RBC 4.15 M/CU MM Normal 3.90-5.30 [facility] Comment on above: Performed By: #### L 200.59532 #### [facility] [address] [place] [address] WBC 8.7 K/CUMM Normal 4.5-11.0 [facility] Comment on above: Performed By: #### L 200.09882 #### [facility] [address] [place] [address] NGOZI MAMMO SCREENINGon 06-06 NGOZI MAMMO SCREENING BILATERAL DIGITAL SCREENING MAMMOGRAM TOMOSYNTHESIS WITH CAD: 06/06/2021 Ordering Physician: Amirah Sanchez M.D. CLINICAL: Routine screening. Comparison is made to exams dated: 04/30/2020 mammogram and 04/01/2019 mammogram - [facility]. The tissue of both breasts is heterogeneously dense. This may lower the sensitivity of mammography. Digital Breast Tomosynthesis was performed. Current study was also evaluated with a Computer Aided Detection (CAD) system. There are benign lymph nodes both breasts. There also is a benign calcification right breast. Additionally, there are benign calcifications left breast. No significant masses, calcifications, or other findings are seen in either breast. There has been no significant interval change. IMPRESSION: BENIGN There is no mammographic evidence of malignancy. A 1 year screening mammogram is recommended. The false-negative rate of mammography is approximately 10%. Management of a palpable abnormality must be based upon clinical grounds. Mitchel Garcia M.D. tlv/penrad:06/07/2021 08:08:08 Soft Mud Molder: Debbie Garcia, [facility] letter sent: Mammography Normal BI-RADS: 2 Benign Reported By: MITCHEL GARCIA M.D. Signed By: MITCHEL GARCIA M.D. Normal [facility] NGOZI MAMMO UNI LT (DIAG)on 0 11-02-2020 NGOZI MAMMO UNI LT (DIAG) UNILATERAL LEFT DIGITAL DIAGNOSTIC MAMMOGRAM TOMOSYNTHESIS WITH CAD: 11/02/2020 Ordering Physician: Amirah Sanchez M.D. CLINICAL: Fibroadenoma left breast. Comparison is made to exams dated: 04/30/2020 mammogram, 10/17/2019 mammogram, and 03/21/2018 mammogram - [facility]. The tissue of the left breast is heterogeneously dense. This may lower the sensitivity of mammography. Digital Breast Tomosynthesis was performed. Current study was also evaluated with a Computer Aided Detection (CAD) system. There are benign calcifications left breast. No significant masses, calcifications, or other findings are seen in the breast. There has been no significant interval change. IMPRESSION: BENIGN There is no mammographic evidence of malignancy. Return to annual mammogram screening schedule is recommended. The false-negative rate of mammography is approximately 10%. Management of a palpable abnormality must be based upon clinical grounds. Mitchel Garcia M.D. tlv/penrad:11/02/2020 13:41:53 Soft Mud Molder: RT Narciso(Ap)(M), [facility] letter sent: Mammography Normal BI-RADS: 2 Benign Reported By: MITCHEL GARCIA M.D. Signed By: MITCHEL GARCIA M.D. Normal [facility] Horace US BREAST TARGETED LEFTon US BREAST TARGETED LEFT ULTRASOUND OF LEFT BREAST: 11/02/2020 Ordering Physician: Amirah Sanchez M.D. CLINICAL: LT breast fibroadenoma. Comparison is made to exams dated: 04/30/2020 ultrasound and 04/30/2020 mammogram - [facility]. Doppler ultrasound of the left breast was performed on the areas of interest. Joe scale images of the real-time examination were reviewed. There is a 6 mm oval lesion with a circumscribed margin in the left breast upper inner aspect middle depth. This oval lesion is hypoechoic and homogeneously echogenic with internal echoes. This abnormality is not significantly changed and correlates with ultrasound findings. Color flow imaging demonstrates that there is no vascularity present. IMPRESSION: PROBABLY BENIGN - FOLLOW-UP RECOMMENDED The 6 mm oval lesion in the left breast most likely is a complex or complicated cyst versus a fibroadenoma and is probably benign. A follow-up ultrasound in 6 months is recommended. A follow-up bilateral mammogram and left ultrasound in 6 months is recommended to demonstrate stability. Mitchel Garcia M.D. tlv/:11/02/2020 14:00:52 Soft Mud Molder: Michelle Fox [facility], [facility] letter sent: Followup Recommended Ultrasound BI-RADS: 3 Probably benign Reported By: MITCHEL GARCIA M.D. Signed By: MITCHEL GARCIA M.D. Normal [facility] PANCEFon 07-27-2020 Panc Elastase, Fecal >800 Normal [facility] ([place]) Comment on above: Result Comment: Refe rence range: >=100 Unit: ug/g (NOTE) REFERENCE INTERVAL: Pancreatic Elastase Fecal by Immunoassay Less than 100 ug/g............Severe insufficiency 100 - 199 ug/g................Moderate insufficiency 200 ug/g or greater...........Normal INTERPRETIVE INFORMATION: Pancreatic Elastase Fecal by Immunoassay Reference intervals do not apply for infants less than one month old. Performed by [facility], [address] [place] [id number] [email or web address], Nichole Troy MD, Lab. 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 0093; Last Updated By: [employer]; 07/09/2020 11:40:58 AM Incontinence of feces with fecal urgency Pancreatic Elastase, Stool; Status:Active; Requested for:09Jul2020; Perform:Lab Services - Lab To Draw (Non-Blood Test); Due:07Oct2020;Ordered ; For:Incontinence of feces with fecal urgency; Ordered By:Kavya Chase; Patient Discussion/Summary 1. Recent colonoscopy was reviewed with patient. 2. Start trial Colestipol 1 gm daily at lunch time. 3. May continue dicyclomine as needed. 4. Obtain fecal elastase.The over the counter digestive enzymes she was supplied are much different the FDA regulated prescription enzymes and are at a lower strength. I recommend discontinuing until she submits a stool sample. 5. Contact office in 2 weeks with status update. Chief Complaint An interactive audio and video telecommunication system which permits real time communications between the patient (at the originating site) and provider (at the distant site) was utilized to provide this telehealth service. Verbal consent was requested and obtained from MADELYN JUAREZ on this date, 07/09/2020 09:00 AM , for a telehealth visit. Colonoscopy follow-up History of Present [id number] female seen today via virtual visit as a follow-up from colonoscopy performed on 05/10/2020 scheduled for postprandial diarrhea and incontinence. Aside from sigmoid diverticulosis, her colon was unremarkable and random colonic biopsies were negative for microscopic colitis. Since working from home due to the current pandemic, she has not had incontinence but believes this is due to the fact that she is so close to her bathroom. She continues to have postprandial diarrhea, most often within 10 to 20 minutes of eating. She does take the dicyclomine if she is going out to eat and believes this seems to help. She has followed up with a chiropractor who gave her multizyme and ypam which she has taken for 2 to 3 days with no change yet. She is status post cholecystectomy in October. She also had pancreatitis in September and believes this was secondary to stones but did not ever have an ERCP. She is currently denying fevers, chills, hematochezia, or melena. Review of Systems Const: Denies fatigue, fever and weight loss. CV: Denies chest pain, pacemaker, palpitations and valvular heart disease. Resp: Denies cough, sleep apnea, SOB and snoring. GI: Denies symptoms other than stated above. Musculo: Denies joint pain and muscle pain. Skin: Denies hives and rash. Neuro: Denies seizures and stroke. Psych: Denies anxiety and depression. Endocrine: Denies intolerance to cold, hot flashes and impaired glucose tolerance. Estiven/Lymph: Denies anemia, blood transfusions, chemotherapy, enlarged lymph nodes and radiation treatment of any kind. Active Problems Problems Incontinence of feces with fecal urgency (787.63) (R15.9,R15.2) Postprandial diarrhea (787.91) (K52.9) Past Medical History Problems History of allergic rhinitis (V12.69) (Z87.09) History of dyspnea (V12.69) (Z87.09) History of hyperlipidemia (V12.29) (Z86.39) History of nasal polyp (V13.89) (Z87.09) History of tachycardia (V13.89) (Z87.898) Surgical History Problems History of Arm surgery History of Cholecystectomy History of Colonoscopy 07/18/122004 History of Dilation and curettage Family History Mother Family history of Alive and well No family history of colon cancer Father Family history of Alive and well No family history of colon cancer Child Family history of Alive and well No family history of colon cancer Other Denied: Family history of malignant neoplasm of colon Social History Problems Does not have living will Former smoker (V15.82) (Z87.891) History of body piercing (V45.89) (Z98.890) No caffeine use No illicit drug use Social alcohol use (V49.89) (Z78.9) Allergies Medication Flagyl Recorded By: Kim Saini; 04/05/2020 8:06:35 AM Penicillins Recorded By: Kim Saini; 04/05/2020 8:06:35 AM Current Meds Medication NameInstruction Atorvastatin Calcium 40 MG Oral TabletTAKE 1 TABLET DAILY DIRECTED. Dicyclomine HCl - 20 MG Oral TabletTAKE 1 TABLET EVERY 6 HOURS NEEDED. Levocetirizine Dihydrochloride 5 MG Oral TabletTAKE 1 TABLET DAILY. Metoprolol Succinate ER 50 MG Oral Tablet Extended Release 24 HourTAKE 1 TABLET DAILY. Zetia 10 MG Oral TabletTAKE 1 TABLET DAILY. Vitals Vital Signs Recorded: 09Jul2020 08:36AM Height5 ft 7 in Vzzeyx562 lb BMI Dpiwqfqirh37.41 BSA Calculated1.91 Physical Exam Patient is alert and oriented and in no apparent distress. Patient is speaking in complete sentences without conversational dyspnea. No observed pallor or jaundice. Results/Data 1. Colonoscopy 07/18/12: Normal colon and ileum with small hemorrhoids. Negative random biopsies for microscopic colitis. Normal colonoscopy in 2004. 2. Negative celiac serology 04/05/2020. 3. Colonoscopy 05/10/2020: Sigmoid diverticulosis, normal colon and ileum. Normal random colonic biopsies. Signatures Electronically signed by : Kavya Chase PA-C; Jul 09 2020 11:41AM EST (Author) Normal [employer] [facility] Surgical Pathology Depar tmenton 05-10-2020 [facility] Surgical Pathology Department Name MADELYN JUAREZ Pathologist: ESTHER RIVERO M.D., PhD. Date of Procedure: 05/10/2020 Date Received: 05/11/2020 Date Reported 05/12/2020 Submitting Physician: NAVYA PRIEST DO Location: [facility] Copy To/Referring/Attendin g: VERA GARCÍA DO Other External # FINAL DIAGNOSIS A. RANDOM COLON BIOSY: --COLONIC MUCOSA, NO SIGNIFICANT PATHOLOGIC FINDINGS Electronically Signed Out By ESTHER RIVERO M.D., PhD./WLI By the signature on this report, the individual or group listed as making the Final Interpretation/Diagno sis certifies that they have reviewed this case. Clinical History: Incontinence with fecal urgency Specimens Submitted As: A: RANDOM COLON BIOSY Gross Description: Received in formalin, labeled with the patient's name and hospital number and random colon, are multiple fragments of alfred, soft tissue aggregating to 1.6 x 0.2 x 0.1 cm. The specimen is submitted in toto in one cassette. DPG dpg/05/12/2020 Normal [facility] Comment on above: Performed By: #### U [facility] #### [facility] Surgical Pathology Department [address] [facility] [address] Final Surgical Pathology Rep gwendolyn 04-27-2020 Final Surgical Pathology Report . Pathology Reports Accession: Collected Date/Time: Received Date/Time: Pathologist: [id number] 04/20/2020 14:29 EDT 04/20/2020 14:29 EDT DO VERA BEJARANO Final Surgical Pathology Report DIAGNOSIS: SINONASAL POLYP. NO DYSPLASIA. COMMENT: [facility] [id number] CLINICAL INFORMATION: EXCISION OF NASAL POLYP SPECIMEN: RIGHT NASAL CAVITY NASAL POLYP GROSS DESCRIPTION: Received in formalin, labeled with the patients name, Case #[id number], and right nasal cavity nasal polyp is a alfred-yellow gelatinous partially translucent polyp measuring 2 x 1.5 x 0.4 cm. TS -1, sectioned. Dictated by JOLANTA FERRARO MICROSCOPIC DESCRIPTION: Slides reviewed. Electronically Signed by Pathology Report verified by [facility] Electronically signed by VERA BEJARANO DO Sign out Date: 04/27/2020 15:32 Performing Lab: [facility], [address] [place] [address] ([place]) Comment on above: Performed By: #### S PFR #### [place] [address] CULTURE BODY FLUIDon 020 CULTURE BODY FLUID CULTURE BODY FLUID _BODY FLUID CULTURE_ M I C R O B I O L O G Y R E P O R T FINAL Antimicrobial Susceptibility and Organism Identification Report Specimen Number : [id number] Requested : 04/20/20 Specimen Source : BODY FLUID Collected : 04/20/20 10:06 [place] of Isolation : AMBULATORY Received : 04/20/20 10:06 Requesting Physician : KASSANDRA TUTTLE ------ Patient/Specimen Tests and Comments Specimen Comments FINAL REPORT: NO GROWTH AT 48 HOURS source: left maxillary sinus ------ Tech : Source : BODY FLUID ID # : [id number] FINAL Report Date : / / : Collected : 04/20/20 10:06 04/22/20.1215.P[employer]R [employer]. 04/21/20.1208.P[employer]R [employer]. 04/22/20.1215.[employer]IVO [employer]Above [employer] PLETE Normal [facility] Comment on above: Performed By: #### 2 [id number] #### [facility],[address] [place] [address] CULTURE BODY FLUID CULTURE BODY FLUID _BODY FLUID CULTURE_ M I C R O B I O L O G Y R E P O R T FINAL Antimicrobial Susceptibility and Organism Identification Report Specimen Number : [id number] Requested : 04/20/20 Specimen Source : BODY FLUID Collected : 04/20/20 10:06 [place] [facility] Isolation : AMBULATORY Received : 04/20/20 10:06 Requesting Physician : KASSANDRA TUTTLE ------ Patient/Specimen Tests and Comments Specimen Comments FINAL REPORT: NO GROWTH AT 48 HOURS source: right maxillary sinus ------ Tech : Source : BODY FLUID ID # : [id number] FINAL Report Date : / / : Collected : 04/20/20 10:06 04/22/20.5.BKO. 04/21/20.1208.BKO. 04/22/20.5.OVIVO [employer] PLETE Normal [facility] Comment on above: Performed By: #### 2 [id number] #### [facility],[address] [place], [place] [id number] GRAM STAIN ROUTINEon 020 INR Coag (Bld) [Relative time] GRAM STAIN ROUTINE GRAM STAIN ROUTINE SOURCE _LEFT_MAX 04/20/20.1117.JLN. AMOUNT DESCRIPTION _NO_ORGANISMS_SEEN___ 04/20/207.JLN. Normal [facility] Comment on above: Performed By: #### 2 [id number] #### [facility],[address] [place] [address],[facility] [id number] [place] [address] (Bld) [Relative time] GRAM STAIN ROUTINE GRAM STAIN ROUTINE SOURCE _RIGHT_MAX 04/20/20.8.JLN. AMOUNT DESCRIPTION _NO_ORGANISMS_SEEN___ 04/20/20.8.JLN. Normal [facility] Comment on above: Performed By: #### 2 [id number] #### [facility],[address] [place] [address] Initial Visit (Gastroenterol ogy)on 04-05-2020 Initial Visit (Gastroenterology) Diagnoses/Problems Assessed Incontinence of feces with fecal urgency (787.63) (R15.9,R15.2) Postprandial diarrhea (787.91) (K52.9) Orders Incontinence of feces with fecal urgency Start: Suprep Bowel Prep Kit 17.5-3.13-1.6 GM/177ML Oral Solution; USE DIRECTED Rx By: Kavya Chase; Dispense: 0 Days ; #:1 X 2 x 177 ML Bottle; Refill: 0;For: Incontinence of feces with fecal urgency; KARI = N; Sent To: [employer] 0116; Last Updated By: [employer]; 04/05/2020 8:38:51 AM Colonoscopy; Status:Hold For - Scheduling; Requested for:[id number]; Perform:[facility]; Due:[id number];Ordered ; For:Incontinence of feces with fecal urgency; Ordered By:Kavya Chase; Patient competent to provide consent? : Yes-pt mentally competent to provide consent Postprandial diarrhea CELIAC DISEASE SEROLOGY PANEL; Specimen Source:Blood ([facility]); Status:Active; Requested for:[id number]; Perform:Lab Services - Lab To Draw (Blood Test); Due:04Jul2020;Ordered ; For:Postprandial diarrhea; Ordered By:Kavya Chase; Patient Discussion/Summary 1. The diagnosis and evaluation options were discussed with the patient. A colonoscopy was recommended and scheduled. The procedure and sedation were discussed. Risks including but not limited to bleeding, perforation, reaction to medication, missed polyps, damage to other organs, and adverse cardiopulmonary events were discussed. The patient?s questions were answered. Patient was instructed about not driving the day of the exam after being sedated. 2. The patient appears medically stable for sedation and endoscopy. 3. Review blood work from PCP. Obtain celiac panel. 4. Continue dicyclomine 20 mg 30 minutes before meals. 5. FODMAP diet discussed and education materials provided. Additionally, foods that can make IBS-related diarrhea include: ?Too much fiber, especially the insoluble kind you get in the skin of fruits and vegetables ?Food and drinks with chocolate, alcohol, caffeine, fructose, or sorbitol ?Carbonated drinks ?Large meals ?Fried and fatty foods ?Dairy products, especially in people who can?t digest the milk sugar lactose, called lactose intolerance Chief Complaint An interactive audio and video telecommunication system which permits real time communications between the patient (at the originating site) and provider (at the distant site) was utilized to provide this telehealth service. Verbal consent was requested and obtained from MADELYN JUAREZ on this date, 04/05/2020 08:30 AM , for a telehealth visit. Diarrhea and incontinence History of Present [id number] female seen today via virtual visit regarding worsening diarrhea with incontinence. Patient states she had similar symptoms back in 2011 and colonoscopy was normal at that time with negative random biopsies for microscopic colitis. She states her diarrhea resolved for approximately 7 to 8 years after eliminating caffeine from her diet but this returned last May. Her diarrhea occurs within 10-20 minutes of eating. She repots fecal urgency with intermittent incontinence but no nocturnal diarrhea. She has not visualized gross blood per rectum but does state stool is often stringy and mucus-like. She has not identified triggering foods but states her PCP did allergy testing which showed mild sensitivity to shrimp and milk. She also believes her thyroid was normal as well. She was also given dicyclomine 10 mg and states this did not improve her symptoms and recently began taking 20 mg and is unsure if this has made any improvement. She denies associated pain aside from abdominal sensation signaling a bowel movement. Appetite remains normal without nausea, vomiting, or weight loss. She has no fevers or chills. There is no recent antibiotic history. Review of Systems Const: Denies fatigue, fever and weight loss. CV: Denies chest pain, pacemaker, palpitations and valvular heart disease. Resp: Denies cough, sleep apnea, SOB and snoring. GI: Denies symptoms other than stated above. Musculo: Denies joint pain and muscle pain. Skin: Denies hives and rash. Neuro: Denies seizures and stroke. Psych: Denies anxiety and depression. Endocrine: Denies intolerance to cold, hot flashes and impaired glucose tolerance. Estiven/Lymph: Denies anemia, blood transfusions, chemotherapy, enlarged lymph nodes and radiation treatment of any kind. Active Problems Problems Incontinence of feces with fecal urgency (787.63) (R15.9,R15.2) Postprandial diarrhea (787.91) (K52.9) Past Medical History Problems History of allergic rhinitis (V12.69) (Z87.09) History of dyspnea (V12.69) (Z87.09) History of hyperlipidemia (V12.29) (Z86.39) History of nasal polyp (V13.89) (Z87.09) History of tachycardia (V13.89) (Z87.898) Surgical History Problems History of Arm surgery History of Cholecystectomy History of Colonoscopy 07/18/122004 History of Dilation and curettage Family History Mother Family history of Alive and well No family history of colon cancer Father Family history of Alive and well No family history of colon cancer Child Family history of Alive and well No family history of colon cancer Social History Problems Former smoker (V15.82) (Z87.891) History of body piercing (V45.89) (Z98.890) No caffeine use No illicit drug use Social alcohol use (V49.89) (Z78.9) Allergies Medication Flagyl Recorded By: Kim Saini; 04/05/2020 8:06:35 AM Penicillins Recorded By: Kim Saini; 04/05/2020 8:06:35 AM Current Meds Medication NameInstruction Atorvastatin Calcium 40 MG Oral Tablet Dicyclomine HCl - 10 MG Oral Capsule Levocetirizine Dihydrochloride 5 MG Oral Tablet Metoprolol Succinate ER 50 MG Oral Tablet Extended Release 24 Hour Zetia 10 MG Oral Tablet Physical Exam Patient is alert and oriented and in no apparent distress. Patient is speaking in complete sentences without conversational dyspnea. No observed pallor or jaundice. Results/Data 1. Colonoscopy 07/18/12: Normal colon and ileum with small hemorrhoids. Negative random biopsies for microscopic colitis. Normal colonoscopy in 2004. Signatures Electronically signed by : Kavya Chase PA-C; Apr 05 2020 8:39AM EST (Author) Normal [employer] XR CHEST 2 VIEWSon 0 XR CHEST 2 VIEWS ORIGINAL 2 view chest CLINICAL HISTORY: Upper respiratory infection COMPARISON: None. FINDINGS: The cardiomediastinal contours are normal. There is no focal airspace disease. No nodule or mass is identified. There is no appreciable pleural fluid or pneumothorax. No suspicious osseous abnormality is identified. IMPRESSION: 1. No acute radiographic findings. Interpreted By: Wil Souza MD Preliminary Report By: Wil Souza MD Electronically Signed By: Wil Souza MD Dictated Date: 09/27/2019 7:02:54 PM Prelim Date: 09/27/2019 7:02:54 PM Sign Date: 09/27/2019 7:03:14 PM Ordering Provider:Darren García [facility] ([place]) Vital Signs Date Time Vital Sign Value Performing Clinician Joanna de la o 08-22-2024 16:03-0500 Diastolic blood pressure 93 mm[Hg] Jessie Lozoya APRN.CNP Work Phone: [facility] 08-22-2024 16:03-0500 Systolic blood pressure 157 mm[Hg] Jessie Lozoya APRN.RESIDENTIAL AIR SEALING TECHNICIAN Work Phone: [facility] 08-22-2024 14:10-0500 Body mass index (BMI) [Ratio] 31.92 kg/m2 Jessie Lozoya APRN.RESIDENTIAL AIR SEALING TECHNICIAN Work Phone: [facility] 08-22-2024 14:10-0500 Body temperature 98.29 [degF] Jessie Lozoya APRN.RESIDENTIAL AIR SEALING TECHNICIAN Work Phone: [facility] 08-22-2024 14:10-0500 Body weight 87 kg Jessie Lozoya APRN.RESIDENTIAL AIR SEALING TECHNICIAN Work Phone: [facility] 08-22-2024 14:10-0500 Heart rate 106 /min Jessie Lozoya APRN.RESIDENTIAL AIR SEALING TECHNICIAN Work Phone: [facility] 08-22-2024 14:10-0500 Respiratory rate 16 /min Jessie Lozoya APRN.RESIDENTIAL AIR SEALING TECHNICIAN Work Phone: [facility] 08-22-2024 14:10-0500 SaO2% (BldA) [Mass fraction] 97 % Jessie Lozoya APRN.CNP Work Phone: [facility] 06-16-2024 09:05-0400 Body height 165.1 cm Amirah Sanchez MD Work Phone: [facility] [email or web address] 06-16-2024 09:05-0400 Body mass index (BMI) [Ratio] 32.62 kg/m2 Amirah Sanchez MD Work Phone: [facility] [employer] 06-16-2024 09:05-0400 Body weight 88.91 kg Amirah Sanchez MD Work Phone: [facility] [employer] 06-16-2024 09:05-0400 Diastolic blood pressure 76 mm[Hg] Amirah Sanchez MD Work Phone: [facility] [employer] 06-16-2024 09:05-0400 Heart rate 69 /min Amirah Sanchez MD Work Phone: [facility] [employer] 06-16-2024 09:05-0400 Systolic blood pressure 130 mm[Hg] Amirah Sanchez MD Work Phone: [employer] 10-18-2023 13:38-0500 Body height 167 cm Grant Vargas MD Work Phone: [employer] 10-18-2023 13:38-0500 Body mass index (BMI) [Ratio] 32.85 kg/m2 Grant Vargas MD Work Phone: [employer] 10-18-2023 13:38-0500 Body weight 91.63 kg Grant Vargas MD Work Phone: [employer] 10-18-2023 13:38-0500 Diastolic blood pressure 89 mm[Hg] Grant Vargas MD Work Phone: [employer] 10-18-2023 13:38-0500 Heart rate 73 /min Grant Vargas MD Work Phone: [employer] 10-18-2023 13:38-0500 Systolic blood pressure 157 mm[Hg] Grant Vargas MD Work Phone: [employer] 10-05-2023 07:14-0500 Body height 165.1 cm Joel العراقي MD Work Phone: [employer] 10-05-2023 07:14-0500 Body mass index (BMI) [Ratio] 32.95 kg/m2 Joel العراقي MD Work Phone: [employer] 10-05-2023 07:14-0500 Body weight 89.81 kg Joel العراقي MD Work Phone: [employer] 10-05-2023 07:14-0500 Diastolic blood pressure 78 mm[Hg] Joel العراقي MD Work Phone: [employer] 10-05-2023 07:14-0500 Heart rate 76 /min Joel العراقي MD Work Phone: [employer] 10-05-2023 07:14-0500 Systolic blood pressure 137 mm[Hg] Joel العراقي MD Work Phone: [employer] 06-04-2023 09:18-0400 Body height 165.1 cm Amirah Sanchez MD Work Phone: [facility] [employer] 06-04-2023 09:18-0400 Body mass index (BMI) [Ratio] 33.08 kg/m2 Amirah Sanchez MD Work Phone: [facility] [employer] 06-04-2023 09:18-0400 Body weight 90.17 kg Amirah Sanchez MD Work Phone: [employer] 06-04-2023 09:18-0400 Diastolic blood pressure 86 mm[Hg] Amirah Sanchez MD Work Phone: [employer] 06-04-2023 09:18-0400 Heart rate 76 /min Amirah Sanchez MD Work Phone: [employer] 06-04-2023 09:18-0400 Systolic blood pressure 158 mm[Hg] Amirah Sanchez MD Work Phone: [facility] 03-18-2023 13:48-0400 Body temperature 98.6 [degF] Esther Ledger LOG CUT OFF SAWYER.RESIDENTIAL AIR SEALING TECHNICIAN Work Phone: [facility] 03-18-2023 13:48-0400 Body weight 89.81 kg Esther Ledger LOG CUT OFF [employer]WYER.RESIDENTIAL AIR SEALING TECHNICIAN Work Phone: [facility] 03-18-2023 13:48-0400 Diastolic blood pressure 83 mm[Hg] Esther Ledger LOG CUT OFF SAWYER.RESIDENTIAL AIR SEALING TECHNICIAN Work Phone: [facility] 03-18-2023 13:48-0400 Heart rate 80 /min Esther Ledger LOG CUT OFF [employer]WYER.RESIDENTIAL AIR SEALING TECHNICIAN Work Phone: [facility] 03-18-2023 13:48-0400 Respiratory rate 20 /min Esther Ledger LOG CUT OFF [employer]YER.RESIDENTIAL AIR SEALING TECHNICIAN Work Phone: [facility] 03-18-2023 13:48-0400 SaO2% (BldA) [Mass fraction] 98 % Esther Ledger LOG CUT OFF [employer]WYER.RESIDENTIAL AIR SEALING TECHNICIAN Work Phone: [facility] 03-18-2023 13:48-0400 Systolic blood pressure 144 mm[Hg] Esther Ledger LOG CUT OFF [employer].RESIDENTIAL AIR SEALING TECHNICIAN Work Phone: [facility] 06-22-2022 09:04-0400 Body height 165.1 cm Josephine Kingston MD Work Phone: [facility] 06-22-2022 09:04-0400 Body weight 86.18 kg Josephine Kingston MD Work Phone: [facility] 06-22-2022 09:04-0400 Diastolic blood pressure 85 mm[Hg] Josephine Kingsotn MD Work Phone: [facility] 06-22-2022 09:04-0400 Heart rate 75 /min Josephine Kingston MD Work Phone: [facility] 06-22-2022 09:04-0400 Systolic blood pressure 136 mm[Hg] Josephine Kingston MD Work Phone: [facility] 05-17-2022 08:30-0400 Body height 165.1 cm Josephine Kingston MD Work Phone: [facility] 05-17-2022 08:30-0400 Body weight 87.23 kg Josephine Kingston MD Work Phone: [facility] 05-17-2022 08:30-0400 Diastolic blood pressure 77 mm[Hg] Josephine Kingston MD Work Phone: [facility] 05-17-2022 08:30-0400 Heart rate 69 /min Josephine Kingston MD Work Phone: [facility] 05-17-2022 08:30-0400 SaO2% (BldA) [Mass fraction] 93 % Josephine Kingston MD Work Phone: [facility] 05-17-2022 08:30-0400 Systolic blood pressure 140 mm[Hg] Josephine Kingston MD Work Phone: [facility] Encounters Encounter Date Encounter Type Care Provider Facility Start: 11-10-2024 End: 11-10-2024 ambulatory Hilary SAAVEDRA Facility:[facility] Start: 09-08-2024 End: 09-08-2024 ambulatory Carolynn Holland RN [facility] Clinical Communication Start: 09-08-2024 End: 09-08-2024 Patient encounter [facility] Start: 08-22-2024 End: 08-22-2024 Subsequent hospital visit by physician [facility] Comment on above: Acute cough [R05.1] Start: 08-22-2024 End: 08-22-2024 Patient encounter procedure Jessie Lozoya APRN.RESIDENTIAL AIR SEALING TECHNICIAN Work Phone: [facility] Comment on above: Acute cough (Primary Dx); Impacted cerumen of left ear Start: 08-22-2024 End: 08-22-2024 ambulatory JESSIE LOZOYA Facility:[id number] Start: 07-02-2024 ambulatory AMIRAH Hwang acility:[id number] Start: 07-02-2024 End: 07-02-2024 Subsequent hospital visit by physician Screen[facility]Diagnostic [facility] Comment on above: Encounter for screen ing mammogram for malignant neoplasm of breast [Z12.31] Start: 06-16-2024 End: 06-16-2024 ambulatory AMIRAH SANCHEZ [facility] Start: 06-16-2024 End: 06-16-2024 Encounter for gynecological examination (general) (routine) without abnormal findings AMIRAH SANCHEZ [facility] Start: 06-16-2024 End: 06-16-2024 Patient encounter procedure Amirah Sanchez MD Work Phone: [facility] Work Phone: Start: 06-16-2024 End: 06-16-2024 Periodic preventive med est patient 40-64yrs Amirah Sanchez MD Work Phone: [facility] Obstetrics and Gynecology [facility] Comment on above: Women's annual routi ne gynecological examination (Primary Dx); Encounter for screening mammogram for breast cancer; Encounter for surveillance of other contraceptive Start: 10-22-2023 Telephone encounter Joel brown MD Work Phone: [facility] Comment on above: Cancelled Appointmen t (Surgery 11.01.23) Start: 10-18-2023 End: 10-18-2023 Office outpatient visit 15 minutes Grant Vargas MD Work Phone: [facility] Comment on above: Mixed incontinence u rge and stress (Primary Dx) Start: 10-18-2023 End: 10-18-2023 ambulatory GRANT VARGAS [facility] Start: 10-11-2023 Telephone encounter Joel brown MD Work Phone: [facility] Comment on above: Needs surgery locati on Start: 10-05-2023 End: 10-05-2023 ambulatory JOEL العراقي [facility] Start: 10-05-2023 End: 10-05-2023 Office outpatient visit 40 minutes Joel العراقي MD Work Phone: [facility] Comment on above: ZAC (stress urinary incontinence, female) (Primary Dx); Midline cystocele; Overactive bladder Start: 10-01-2023 Telephone encounter Joel brown MD Work Phone: [facility] Comment on above: Procedure (Cystoscop y question 10.05.23) Start: 06-06-2023 End: 06-06-2023 Subsequent hospital visit by physician Screen/Diagnostic [facility] Comment on above: Encounter for screen ing mammogram for malignant neoplasm of breast [Z12.31] Start: 06-04-2023 End: 06-04-2023 Initial preventive medicine new patient 40-64yrs Amirah Sanchez MD Work Phone: [facility] Comment on above: Women's annual routi ne gynecological examination (Primary Dx); Encounter for screening mammogram for breast cancer; Nocturia; Referral of patient Start: 06-04-2023 End: 06-04-2023 Patient encounter procedure Amirah Sanchez MD Work Phone: [facility] Work Phone: Start: 03-22-2023 ambulatory HALEY VIRK Facility:[facility] Start: 03-22-2023 End: 03-22-2023 Subsequent hospital visit by physician Provider [facility] Start: 03-19-2023 Telephone encounter Jessie Lozoya APRN.RESIDENTIAL AIR SEALING TECHNICIAN Work Phone: [facility] Comment on above: Results Start: 03-18-2023 ambulatory RON-ESTHER MENDEZ Facil ity:[facility] Start: 03-18-2023 End: 03-18-2023 [facility] Start: 03-18-2023 End: 03-18-2023 ambulatory VERA GARCÍA Facility:[facility] Start: 03-18-2023 End: 03-18-2023 Patient encounter procedure Esther Ledger LOG CUT OFF SAWYER.RESIDENTIAL AIR SEALING TECHNICIAN Work Phone: [facility] Comment on above: Acute midline low ba ck pain without sciatica (Primary Dx); Urinary frequency; Insect bite of left thigh, initial encounter; Cellulitis of left thigh Start: 06-22-2022 End: 06-22-2022 ambulatory JOSEPHINE KINGSTON Facility:[facility] Start: 06-22-2022 End: 06-22-2022 Patient encounter procedure Josephine Kingston MD Work Phone: [facility] Comment on above: Ureteral stone (Prim toni Dx) Start: 05-23-2022 ambulatory JOSEPHINE KINGSTON Facilit y:[facility] Start: 05-23-2022 End: 05-23-2022 Subsequent hospital visit by physician [facility] Start: 05-17-2022 ambulatory JOSEPHINE KINGSTON Facilit y:[facility] Start: 05-17-2022 End: 05-17-2022 ambulatory JOSEPHINE KINGSTON Facility:[facility] Start: 05-17-2022 End: 05-17-2022 Subsequent hospital visit by physician Provider [facility] Start: 05-17-2022 End: 05-17-2022 Patient encounter procedure Jsoephine Kingston MD Work Phone: [facility] Comment on above: Ureteral stone (Prim toni Dx); Other chronic pancreatitis (HCC) Start: 05-11-2022 End: 05-11-2022 Subsequent hospital visit by physician Screen/Diagnostic [facility] Comment on above: Encounter for screen ing mammogram for malignant neoplasm of breast [Z12.31] Start: 05-01-2022 End: 2022 Emergency department patient visit SEFERINO ESPINAL Facility:[facility] Start: 05-01-2022 End: 05-01-2022 Subsequent hospital visit by physician Provider [facility] Start: 04-20-2020 End: 04-20-2020 Patient encounter procedure PARAG CANNON [facility] Procedures Date Procedure Procedure Detail Performing Clinician Start: 08-22-2024 Radiologic exam ches t 2 views Jessie Lozoya APRN.RESIDENTIAL AIR SEALING TECHNICIAN Work Phone: Start: 07-02-2024 End: 07-02-2024 Screening digital breast tomosynthesis bi Amirah Montana MD Work Phone: Start: 10-18-2023 Follow-up visit Follow-up GRANT RODRIGUEZ Start: 06-07-2023 Mammography Joel brown MD Work Phone: Start: 03-22-2023 Radex spine lumbscrl compl w/bending views min 6 Star Virk RESIDENTIAL [employer] SEALING TECHNICIAN Work Phone: Start: 03-18-2023 Bacteria identified in Urine by Culture Esther Mendez LOG CUT OFF SAWYER.RESIDENTIAL AIR SEALING TECHNICIAN Work Phone: Start: 03-18-2023 Urine test visual color cmprsn meths Esther Mendez LOG CUT OFF SAWYER.RESIDENTIAL [employer] SEALING TECHNICIAN Work Phone: Start: 06-22-2022 Urnls dip stick/tabl et rgnt auto w/o microscopy Josephine Kingston MD Work Phone: Start: 05-23-2022 AMYLASE BLD Josephine Kingston MD Work Phone: Start: 05-23-2022 LIPASE BLD Josephine Kingston MD Work Phone: Start: 05-11-2022 BEE SCREENING W NGOZI Sanchez MD Work Phone: Start: 05-11-2022 Mammography Screen/Kasia gnostic 3 Start: 05-01-2022 BASIC METABOLIC PNL Con nor B Espinal Work Phone: Start: 05-01-2022 CBC + DIFF Seferino B W olf Work Phone: Start: 05-01-2022 HCG QUANTITATIVE Seferino B Espinal Work Phone: Start: 05-01-2022 HEPATIC FUNCTION PNL Co nnor B Espinal Work Phone: Start: 05-01-2022 LIPASE BLD Seferino B W olf Work Phone: Start: 05-01-2022 Ct abdomen & pelvis w/contrast material Seferino B Espinal Work Phone: Start: 05-01-2022 URINALYSIS, DIPSTICK ONLY Seferino Espinal Work Phone: Start: 06-06-2021 Mammography Provider [facility] Start: 04-19-2020 Microscopic observat ion [Identifier] in Cervix by Cyto stain Amirah Sanchez MD Work Phone: Plan of Treatment Date Care Activity Detail Author Start: 2044 RSV Immunization for Adults (1 - 1-dose 75+ series) RSV Immunization for Adults (1 - 1-dose 75+ series) [facility] Start: 2029 RSV Immunization age d 60 or older (1 - 1-dose 60+ series) RSV Immunization aged 60 or older (1 - 1-dose 60+ series) [facility] Start: 07-02-2025 Screening for malign ant neoplasm of breast [facility] Start: 06-29-2025 End: 06-29-2025 Patient encounter procedure 06/29/2025 4:00 PM EDT Office Visit [facility] [address] [place] [address] Amirah Sanchez MD [address] [place] [address] [address] [place], [place] [address] [facility] Start: 05-01-2025 DIABETES SCREEN DIABETES SCREEN [facility] Start: 05-01-2025 Diabetes Screening Diabetes Screenin g [facility] Start: 04-19-2025 Screening for malign ant neoplasm of cervix [facility] Start: 06-16-2024 End: 08-16-2025 DBT Breast - bilateral screening Bilateral screening mammogram with tomosynthesis Imaging Routine Encounter for screening mammogram for breast cancer Expected: 06/16/2024, Expires: 08/16/2025 [facility] Work Phone: Comment on above: Expected: 06/16/2024 , Expires: 08/16/2025 Start: 06-16-2024 End: 06-16-2024 Patient encounter procedure 06/16/2024 8:30 AM EDT Office Visit [facility] [address] [place] [address] Amirah Sanchez MD [address] [place] [address] [address] [place] [address] [facility] Start: 06-07-2024 Screening for malign ant neoplasm of breast Mammogram [facility] Start: 06-06-2024 Mammography Mammogram Screening [facility] Start: 05-25-2024 COVID-19 Vaccine ( season) COVID-19 Vaccine ( season) [facility] Start: 05-25-2024 Covid-19 Vaccine ( season) Covid-19 Vaccine ( season) [facility] Start: 05-25-2024 Influenza vaccination Influenza Vacc ine (#1) [facility] Start: 11-01-2023 End: 11-01-2023 Admission to same day surgery center 11/01/2023 8:00 AM EST - 11/01/2023 9:00 AM EST Surgery [facility] [address] [place] [address] Joel العراقي MD [address] [place] [address], [address] [place] [address] SLING OPERATION FOR STRESS INCONTINENCE [63287 (CPT )] [facility] Comment on above: SLING OPERATION FOR STRESS INCONTINENCE [48202 (CPT )] Start: 11-01-2023 End: 11-01-2023 Anterior colporraphy rpr cystocele w/cysto ANTERIOR COLPORRHAPHY REPAIR CYSTOCELE (ANTERIOR REPAIR) Stress incontinence (female) (male) Cystocele, midline 11/01/2023 8:00 AM EST [facility] Start: 11-01-2023 End: 11-01-2023 Cystourethroscopy CYSTOSCOPY Stress incontinence (female) (male) Cystocele, midline 11/01/2023 8:00 AM EST [facility] Start: 11-01-2023 End: 11-01-2023 Sling operation stress incontinence SLING OPERATION FOR STRESS INCONTINENCE Stress incontinence (female) (male) Cystocele, midline 11/01/2023 8:00 AM EST [facility] Start: 11-01-2023 Subsequent hospital visit by physician 11/01/2023 8:00 AM EST Hospital Encounter [facility] [address] [place] [address] Joel العراقي MD [address] [place] [address], [address] [place], [place] [id number] [facility] Start: 06-04-2023 End: 08-04-2024 DBT Breast - bilateral screening Bilateral screening mammogram with tomosynthesis Imaging Routine Encounter for screening mammogram for breast cancer Expected: 06/04/2023, Expires: 08/04/2024 [facility] Work Phone: Comment on above: Expected: 06/04/2023 , Expires: 08/04/2024 Start: 05-25-2023 Influenza vaccination [facility] Start: 05-11-2023 Mammography [facility] Start: 05-11-2023 Screening for malign ant neoplasm of breast Mammogram [facility] Start: 04-19-2023 Screening for malign ant neoplasm of cervix Pap Smear [facility] Start: 09-24-2022 DEPRESSION ASSESSMENT DEPRESSION ASS ESSMENT [facility] Start: 06-06-2022 Mammography MAMMOGRAM [facility] Start: 05-25-2022 Influenza vaccination INFLUENZA (#1) [facility] Start: 05-17-2022 End: 07-17-2022 Amylase [Enzymatic activity/volume] in Serum or Plasma AMYLASE BLD Lab Routine Other chronic pancreatitis (HCC) Expected: 05/17/2022, Expires: 07/17/2022 [facility] Work Phone: Comment on above: Expected: 05/17/2022 , Expires: 07/17/2022 Start: 05-17-2022 End: 07-17-2022 Lipase [Enzymatic activity/volume] in Serum or Plasma LIPASE BLD Lab Routine Other chronic pancreatitis (HCC) Expected: 05/17/2022, Expires: 07/17/2022 [facility] Work Phone: Comment on above: Expected: 05/17/2022 , Expires: 07/17/2022 Start: 09-24-2021 DEPRESSION ASSESSMENT DEPRESSION ASS ESSMENT [facility] Start: 2019 SHINGRIX VACCINE (1 of 2) HAMILTON GRIX VACCINE (1 of 2) [facility] Start: 2019 Zoster Vaccines (1 of 2) Zoste r Vaccines (1 of 2) [facility] Start: 2014 COLOGUARD (FIT-DNA) COLOGUARD (FIT-D NA) [facility] Start: 2014 Colonoscopy COLONOSCOPY [facility] Start: 2014 COLORECTAL CANCER SCREENING CO LORECTAL CANCER SCREENING [facility] Start: [address] COLONOGRAPHY [facility] Start: 2014 FECAL OCCULT BLOOD FECAL OCCULT BLOO D [facility] Start: 2014 Lipid 1996 panel - S maría or Plasma Lipid Screening [facility] Start: 2014 Lipid panel Lipid Screening [facility] Start: 2014 LIPID SCREEN LIPID SCREEN [facility] Start: 2014 Screening for malign ant neoplasm of colon [facility] Start: 2014 SIGMOIDOSCOPY SIGMOIDOSCOPY [facility] Start: 1999 HPV TESTING HPV TESTING [facility] Start: 1990 PAP TESTING PAP TESTING [facility] Start: 1990 Screening for malign ant neoplasm of cervix Cervical Cancer Screening [facility] Start: 1988 DTaP/Tdap/Td Vaccine s (1 - Tdap) DTaP/Tdap/Td Vaccines (1 - Tdap) [facility] Start: 1988 Hepatitis B Vaccine (1 of 3 - 19+ 3-dose series) Hepatitis B Vaccine (1 of 3 - 19+ 3-dose series) [facility] Start: 1988 Hepatitis B Vaccines (1 of 3 - 19+ 3-dose series) Hepatitis B Vaccines (1 of 3 - 19+ 3-dose series) [facility] Start: 1988 Urine microalbumin profile [facility] Start: 1987 Anxiety Screening Anxiety Screening [facility] Start: 1987 Depression Screening Depression Scre ening [facility] Start: 1987 Diabetes mellitus screening Diabetes Screening [facility] Start: 1987 HEPATITIS C SCREENING HEPATITIS C [facility] Start: 1987 Hepatitis C screening Hepatitis C [facility] Start: 1987 HIV SCREENING HIV SCREENING [facility] Start: 1987 HIV screening HIV Screening [facility] Start: 1981 Adult depression scr eening assessment DEPRESSION SCREENING [facility] Start: 1970 MMR Vaccines (1 of 1 - Standard series) MMR Vaccines (1 of 1 - Standard series) [facility] Start: 1969 COVID-19 VACCINE (#1) COVID-19 VACCI NE (#1) [facility] Start: 1969 HEPATITIS B (1 of 3 - 3-dose series) HEPATITIS B (1 of 3 - 3-dose series) [facility] Start: 1969 Hepatitis B Vaccine (1 of 3 - 3-dose series) Hepatitis B Vaccine (1 of 3 - 3-dose series) [facility] Start: 1969 Hepatitis B Vaccines (1 of 3 - 3-dose series) Hepatitis B Vaccines (1 of 3 - 3-dose series) [facility] Start: 1969 HIV screening HIV Screening [facility] Start: 1969 Screening for malign ant neoplasm of colon [facility] Bacteria identified in Urine by Culture URINE CULTURE Microbiology Routine Ureteral stone Ordered: 05/17/2022 [facility] Work Phone: Comment on above: Ordered: 05/17/2022 Bacteria identified in Urine by Culture URINE CULTURE Microbiology Routine Acute midline low back pain without sciatica Urinary frequency Ordered: 03/18/2023 [facility] Work Phone: Comment on above: Ordered: 03/18/2023 Removal impacted cer umen irrigation/lvg unilat AMBULATORY EAR LAVAGE/IRRIGATION Procedures Routine Impacted cerumen of left ear Ordered: 08/22/2024 [facility] Work Phone: Comment on above: Ordered: 08/22/2024 UA DIP, URINE (POC) UA DIP, URIN E (POC) Lab Routine Ureteral stone Ordered: 05/17/2022 [facility] Work Phone: Comment on above: Ordered: 05/17/2022 UA DIP, URINE (POC) UA DIP, URIN E (POC) Lab Routine Ureteral stone Ordered: 06/22/2022 [facility] Work Phone: Comment on above: Ordered: 06/22/2022 End: 06-16-2023 US KIDNEY/BLADDER US KIDNEY/BLADDER Radiology Routine Ureteral stone 1 Occurrences starting 05/17/2022 until 06/16/2023 [facility] Work Phone: Comment on above: 1 Occurrences starti ng 05/17/2022 until 06/16/2023 [facility] Payers Date Payer Category Payer Self-pay 2022 [employer] [facility] Care [facility] BLUE CROSS [id number] 2012 Unknown [id number] 2012 Unknown [id number] 1969 Unknown [id number] Unknown [id number] Unknown [id number] Unknown [id number] Unknown [id number] Unknown [id number] Unknown [id number] Social History Date Type Detail Facility Start: 11-12-2019 End: 05-17-2022 Tobacco smoking status NHIS Never smoked tobacco [facility] Start: 11-12-2019 End: 10-05-2023 Tobacco use and exposure Smokeless tobacco non-user [facility] Start: 12-08-2019 End: 06-16-2024 Alcohol intake Ex-drinker (finding) [facility] Start: 1970 Sex Assigned At Not on file C [facility] Start: 04-21-2022 End: 06-22-2022 Exposure to SARS-CoV-2 (event) Not sure [facility] Start: 10-05-2023 Tobacco smoking stat us NHIS Ex-smoker [facility] History of tobacco use Current smoker [facility] Start: 06-04-2023 End: 06-16-2024 History of Social function [facility] Start: 06-04-2023 End: 06-16-2024 Tobacco use panel [facility] Start: 1970 Sex Assigned At Female S [facility] Start: 07-13-2022 Gender identity Identifies as female gender (finding) [facility] Start: 07-13-2022 Sexual orientation Heterosexual (fin ding) [facility] National Score (1-100), lower number is lower risk 61 [facility] Start: 04-24-2022 Sex Female (finding) [facility] NEGATED: Highlighted rowStart: NINF History of tobacco use Passive smoker [facility] Clinical Notes 05-17-2022 to 09-08-2024 Telephone Encounter - Carolynn Holland RN - 09/08/2024 7:05 AM ESTTelephone Encounter - Carolynn Holland RN - 09/08/2024 7:05 AM Leonela Freire LPN - 08/22/2024 4:00 PM EST Note Date & Type Note Facility 09-08-2024 Telephone encounter Note S: [facility] B: Appointment for today at 8am A: Patient states she just got a text stating that appointment needs to be rescheduled. Patient trying to confirm if she still has appointment for today or not. R: Patient asking to be called if appointment needs to be rescheduled. Patient can be reached at [phone]. Reason for Disposition General information question, no triage required and triager able to answer question Protocols used: Information Only Call - No [id number]-IP [facility] 09-08-2024 Miscellaneous Notes S: [facility] B: Appointment for today at 8am A: Patient states she just got a text stating that appointment needs to be rescheduled. Patient trying to confirm if she still has appointment for today or not. R: Patient asking to be called if appointment needs to be rescheduled. Patient can be reached at [phone]. Reason for Disposition General information question, no triage required and triager able to answer question Protocols used: Information Only Call - No [id number] documented in this encounter [facility] 08-22-2024 Note HNO ID: [id number] Author: LEONELA MILLS LPN Service: ? Author Type: LICENSED NURSE Type: Progress Notes Filed: 08/22/2024 16:17 Note Text: Administered Triamcinolone 40 mg to right buttock per order. Patient tolerated procedure well. Patient remained seated for 15 minutes following injection No ill effects noted. Discharge instructions discussed with patient. Leonela Mills LPN August 22, 2024 4:[address] [facility] 08-22-2024 History of Present illness Narrative Administered Triamcinolone 40 mg to right buttock per order. Patient tolerated procedure well. Patient remained seated for 15 minutes following injection No ill effects noted. Discharge instructions discussed with patient. Leonela Mills LPN August 22, 2024 4:05 PM Ambulatory Ear Lavage Pre-treatment: Hydrogen Peroxide 3% Treatment: Left ear Equipment and Irrigation solution and Volume used: Single use syringe with single use irrigation tip 50 % Hydrogen Peroxide 3%, 50% Water Return flow appearance: Brown Patient tolerated procedure: yes Tympanic membrane assessment: Tympanic membrane assessed by LIP pre and post procedure Leonela Mills LPN August 22, 2024 3:59 PM August 22, 2024 Subjective Chief Complaint: Cough (Sx started x 07/21/2024 with a cough,runny nose,body aches,fatigue,diarrhea and headache. Benadryl and cough medication last dose yesterday ) HPI: Madelyn Juarez is a 54 year old female who presents today for 1 month history of cold-like symptoms. Patient states approximately 1 month ago she started with runny nose body aches and a cough. States that she saw her family doctor's office at that time was diagnosed with bronchitis. Was encouraged [id number] cold and cough medications. Patient states approximately 1 week later she called in and stated she was no better. States at that time she was sent a Z-Raciel prescription. Patient states that she did not see any improvement in her symptoms with this medicine. States she contacted them again on August 04. Was placed on doxycycline twice a day for 7 days as well as a Tessalon prescription. Patient states that again she had not seen any improvement. States that she did go on a cruise to the [facility] recently. States she seemed to improve while in the warmer weather. As soon as they got home her symptoms have worsened. Does have a history of seasonal allergies. Is currently taking 2 different antihistamines. Patient states she used to get like this every year and her primary care provider used to give her an injection which cleared her symptoms. Patient does believe this was a Kenalog injection. Patient denies any fever. Has had headache as well as diarrhea. Has attempted cough syrup. Has not had chest x-ray nor oral steriods since symptoms started. PAST MEDICAL HISTORY Diagnosis Date Cholecystitis Hypercholesterolemia IBS (irritable bowel syndrome) Kidney stone Sinus tachycardia PAST SURGICAL HISTORY Procedure Laterality Date D AND C NASAL ENDOS,DIAG,UNI/ BILATERAL RADIUS/ULNER FX ORTH Left REMOVAL GALLBLADDER FAMILY HISTORY Problem Relation Age of Onset Breast Cancer Mother Cancer Mother Bone Breast Cancer Other 2 Aunts Colon Cancer Maternal Grandfather Social History Tobacco Use Smoking status: Never Smokeless tobacco: Never Vaping Use Vaping status: Never Used Substance Use Topics Alcohol use: Not Currently ALLERGIES Allergen Reactions Metronidazole GI Upset Flagyl Armodafinil Other: See Comments Milk GI Upset Penicillins Shortness of Breath Shrimp GI Upset There is no immunization history on file for this patient. Current Medications: albuterol HFA (PROVENTIL HFA, VENTOLIN HFA) 90 mcg/actuation inhaler Inhale 2 Puffs as instructed. diphenoxylate-atropine (LOMOTIL) 2.5-0.025 mg per tablet Take 1 tablet by mouth every 8 hours as needed. HYDROcodone-acetaminophen (NORCO) 5-325 mg per tablet Take 1 tablet by mouth. Hyoscyamine Sulfate 0.125 mg/5 mL elix levocetirizine 5 mg tablet 5 mg. metoprolol succinate ER (TOPROL XL) 50 mg 24 hr tablet once daily. lipase/protease/amylase (CREON ORAL) Take by mouth once daily. atorvastatin (LIPITOR) 40 mg tablet Take 40 mg by mouth once daily. ezetimibe (ZETIA) 10 mg tablet Take 10 mg by mouth once daily. For 30 days Review of Systems Constitutional: Positive for malaise/fatigue. Negative for fever. HENT: Positive for congestion (drainage). Negative for ear pain and sore throat. Eyes: Negative. Respiratory: Positive for cough and wheezing. Negative for shortness of breath. Cardiovascular: Negative. Gastrointestinal: Positive for diarrhea. Negative for vomiting. Musculoskeletal: Positive for myalgias. Skin: Negative for rash. Neurological: Positive for headaches. Objective BP 168/110 Pulse 106 Temp (Src) 98.3 (Oral) Resp 16 Wt 191 lb 12.8 oz (87.0kg) SpO2 97% LMP 01/09/2024 Physical Exam Vitals reviewed. Constitutional: General: She is not in acute distress. Appearance: Normal appearance. She is not ill-appearing, toxic-appearing or diaphoretic. Interventions: She is not intubated. HENT: Head: Normocephalic and atraumatic. Right Ear: Tympanic membrane, ear canal and external ear normal. Left Ear: There is impacted cerumen. Nose: Rhinorrhea present. Rhinorrhea is clear. Mouth/Throat: Lips: Seguin. Mouth: Mucous membranes are moist. Dentition: Normal dentition. No dental tenderness. Tongue: No lesions. Tongue does not deviate from midline. Palate: No mass and lesions. Pharynx: Oropharynx is clear. Uvula midline. No pharyngeal swelling, oropharyngeal exudate, posterior oropharyngeal erythema or uvula swelling. Eyes: General: Right eye: No discharge. Left eye: No discharge. Extraocular Movements: Extraocular movements intact. Conjunctiva/sclera: Conjunctivae normal. Pupils: Pupils are equal, round, and reactive to light. Cardiovascular: Rate and Rhythm: Normal rate and regular rhythm. Heart sounds: Normal heart sounds. No murmur heard. No friction rub. No gallop. Pulmonary: Effort: No tachypnea, bradypnea, accessory muscle usage, prolonged expiration, respiratory distress or retractions. She is not intubated. Breath sounds: Normal air entry. No stridor, decreased air movement or transmitted upper airway sounds. Examination of the right-lower field reveals wheezing. Examination of the left-lower field reveals wheezing. Wheezing present. No decreased breath sounds, rhonchi or rales. Comments: Harsh, dry, barky repetitive cough witnessed with deep breathing for auscultation Musculoskeletal: Cervical back: Neck supple. Skin: General: Skin is warm and dry. Capillary Refill: Capillary refill takes less than 2 seconds. Neurological: Mental Status: She is alert and oriented to person, place, and time. Psychiatric: Mood and Affect: Mood normal. Behavior: Behavior normal. Thought Content: Thought content normal. Judgment: Judgment normal. Aerosol treatment given in [facility]. Clear lungs post treatment. Patient tolerated well. ANDREW Gipson successfully irrigated right ear. Large amount of cerumen removed. Patient tolerated well. Patient states that she can hear again out of her left ear. Post irrigation, canal clear, TM pearly joe and intact. ASSESSMENT/PLAN: 1. Acute cough - ICD9: 786.2, ICD10: R05.1 (primary diagnosis) Chest X-ray completed in [facility] - No acute radiographic abnormality per radiologist -Drink plenty of non-caffeinated fluids! -For nasal congestion/ear fullness: Flonase -take as directed. Use a nasal saline rinse (netti pot/squeeze bottle) couple times a day. -For sore throat/cough: gargle with salt water, hot tea and honey, cool mist vaporizer, and cough drops -Prop yourself up with additional pillows at night -Vicks Vapor rub to chest at night -Any difficulty breathing or chest pain - go to Emergency Department -Recommend continuing your one daily anti-histamine - take as directed (back off on the Benadryl) - XR CHEST 2V FRONTAL/LAT - IPRATROPIUM 0.5 MG-ALBUTEROL 3 MG (2.5 MG BASE)/3 ML NEBULIZATION SOLN - TRIAMCINOLONE ACETONIDE 40 MG/ML SUSPENSION FOR INJECTION 2. Impacted cerumen of left ear - ICD9: 380.4, ICD10: H61.22 - AMBULATORY EAR LAVAGE/IRRIGATION Jessie Lozoya APRN.JL The above reflects my independent exam and review of the patient's medical record. I saw and examined the patient myself personally. Parts of the HPI, ROS, exam, impression/plan, and testing results may have been copied from the current or previous clinical notes and remain pertinent to today's visit. Current changes have been made and documented today. Other parts or data may have been deleted if not relevant for today. Plan as outlined above. Patient advised if symptoms do not improve or if symptoms worsen sooner, to contact their primary care physician. Potential red flag symptoms discussed with the patient. Reviewed appropriate action plan to take if red flag symptoms occur. Patient agreeable to treatment plan. Voice recognition software utilized. Minor grammatical and/or spelling errors may exist. Portions of this note have been entered by ancillary staff. I have reviewed and when necessary edited, so that they are an adequate record of my encounter with this patient. documented in this encounter [facility] 08-22-2024 Note HNO ID: [id number] Author: LEONELA MILLS LPN Service: ? Author Type: LICENSED NURSE Type: Progress Notes Filed: 08/22/2024 16:17 Note Text: Ambulatory Ear Lavage Pre-treatment: Hydrogen Peroxide 3% Treatment: Left ear Equipment and Irrigation solution and Volume used: Single use syringe with single use irrigation tip 50 % Hydrogen Peroxide 3%, 50% Water Return flow appearance: Brown Patient tolerated procedure: yes Tympanic membrane assessment: Tympanic membrane assessed by LIP pre and post procedure Leonela Mills LPN August 22, 2024 3:[address] [facility] 08-22-2024 Instructions Jessie Lozoya APRN.JL - 08/22/2024 3:09 PM EST Chest X-ray completed in [facility] - No acute radiographic abnormality per radiologist -Drink plenty of non-caffeinated fluids! -For nasal congestion/ear fullness: Flonase -take as directed. Use a nasal saline rinse (netti pot/squeeze bottle) couple times a day. -For sore throat/cough: gargle with salt water, hot tea and honey, cool mist vaporizer, and cough drops -Prop yourself up with additional pillows at night -Vicks Vapor rub to chest at night -Any difficulty breathing or chest pain - go to Emergency Department -Recommend continuing your one daily anti-histamine - take as directed (back off on the Benadryl) documented in this encounter [facility] 08-22-2024 Note HNO ID: [id number] Author: JESSIE LOZOYA APRN.JL Service: ? Author Type: Nurse Practitioner Type: Progress Notes Filed: 08/22/2024 16:17 Note Text: August 22, 2024 Subjective Chief Complaint: Cough (Sx started x 07/21/2024 with a cough,runny nose,body aches,fatigue,diarrhea and headache. Benadryl and cough medication last dose yesterday ) HPI: Madelyn Juarez is a 54 year old female who presents today for 1 month history of cold-like symptoms. Patient states approximately 1 month ago she started with runny nose body aches and a cough. States that she saw her family doctor's office at that time was diagnosed with bronchitis. Was encouraged [id number] cold and cough medications. Patient states approximately 1 week later she called in and stated she was no better. States at that time she was sent a Z-Raciel prescription. Patient states that she did not see any improvement in her symptoms with this medicine. States she contacted them again on August 04. Was placed on doxycycline twice a day for 7 days as well as a Tessalon prescription. Patient states that again she had not seen any improvement. States that she did go on a cruise to the [facility] recently. States she seemed to improve while in the warmer weather. As soon as they got home her symptoms have worsened. Does have a history of seasonal allergies. Iscurrently taking 2 different antihistamines. Patient states she used to get like this every year and her primary care provider used to give her an injection which cleared her symptoms. Patient does believe this was a Kenalog injection. Patient denies any fever. Has had headache as well as diarrhea. Has attempted cough syrup. Has not had chest x-ray nor oral steriods since symptoms started. PAST MEDICAL HISTORY Diagnosis Date Cholecystitis Hypercholesterolemia IBS (irritable bowel syndrome) Kidney stone Sinus tachycardia PAST SURGICAL HISTORY Procedure Laterality Date D AND C NASAL ENDOS,DIAG,UNI/ BILATERAL RADIUS/ULNER FX ORTH Left REMOVAL GALLBLADDER FAMILY HISTORY Problem Relation Age of Onset Breast Cancer Mother Cancer Mother Bone Breast Cancer Other 2 Aunts Colon Cancer Maternal Grandfather Social History Tobacco Use Smoking status: Never Smokeless tobacco: Never Vaping Use Vaping status: Never Used Substance Use Topics Alcohol use: Not Currently ALLERGIES Allergen Reactions Metronidazole GI Upset Flagyl Armodafinil Other: See Comments Milk GI Upset Penicillins Shortness of Breath Shrimp GI Upset There is no immunization history on file for this patient. Current Medications: albuterol HFA (PROVENTIL HFA, VENTOLIN HFA) 90 mcg/actuation inhaler Inhale 2 Puffs as instructed. diphenoxylate-atropine (LOMOTIL) 2.5-0.025 mg per tablet Take 1 tablet by mouth every 8 hours as needed. HYDROcodone-acetaminophen (NORCO) 5-325 mg per tablet Take 1 tablet by mouth. Hyoscyamine Sulfate 0.125 mg/5 mL elix levocetirizine 5 mg tablet 5 mg. metoprolol succinate ER (TOPROL XL) 50 mg 24 hr tablet once daily. lipase/protease/amylase (CREON ORAL) Take by mouth once daily. atorvastatin (LIPITOR) 40 mg tablet Take 40 mg by mouth once daily. ezetimibe (ZETIA) 10 mg tablet Take 10 mg by mouth once daily. For 30 days Review of Systems Constitutional: Positive for malaise/fatigue. Negative for fever. HENT: Positive for congestion (drainage). Negative for ear pain and sore throat. Eyes: Negative. Respiratory: Positive for cough and wheezing. Negative for shortness of breath. Cardiovascular: Negative. Gastrointestinal: Positive for diarrhea. Negative for vomiting. Musculoskeletal: Positive for myalgias. Skin: Negative for rash. Neurological: Positive for headaches. Objective BP 168/110 Pulse 106 Temp (Src) 98.3 (Oral) Resp 16 Wt 191 lb 12.8 oz (87.0kg) SpO2 97% LMP 01/09/2024 Physical Exam Vitals reviewed. Constitutional: General: She is not in acute distress. Appearance: Normal appearance. She is not ill-appearing, toxic-appearing or diaphoretic. Interventions: She is not intubated. HENT: Head: Normocephalic and atraumatic. Right Ear: Tympanic membrane, ear canal and external ear normal. Left Ear: There is impacted cerumen. Nose: Rhinorrhea present. Rhinorrhea is clear. Mouth/Throat: Lips: Seguin. Mouth: Mucous membranes are moist. Dentition: Normal dentition. No dental tenderness. Tongue: No lesions. Tongue does not deviate from midline. Palate: No mass and lesions. Pharynx: Oropharynx is clear. Uvula midline. No pharyngeal swelling, oropharyngeal exudate, posterior oropharyngeal erythema or uvula swelling. Eyes: General: Right eye: No discharge. Left eye: No discharge. Extraocular Movements: Extraocular movements intact. Conjunctiva/sclera: Conjunctivae normal. Pupils: Pupils are equal, round, and reactive to light. Cardiovascular: Rate and Rhythm: Normal rate and re (more content not included)... [facility] 08-22-2024 History of Present illness Narrative Radiology Service Progress Note PATIENT NAME: Madelyn Juarez DATE OF SERVICE: August 22, 2024 TIME: 2:58 PM PATIENT IDENTITY VERIFICATION COMPLETED USING TWO (2) IDENTIFIERS: Name and Date of confirmed by patient verbally. FALL SCREENING: Has the patient had 2 falls in the last year or 1 fall with injury or currently using an Ambulatory Assistive Device (Walker, Cane, Wheelchair, Crutches, etc.)? No PATIENT GENDER DATA: Female. status: : No status: NO. PATIENT RELEVANT IMPLANT DATA REVIEWED: Not Applicable PATIENT PRESENTS WITH AN IMPLANTABLE OR ATTACHED FEDERAL AID COORDINATOR: No RADIOLOGY DEPARTMENT: General X-ray: Exam(s) Completed: Chest X-Ray PERIPHERAL IV DATA: Not applicable SIGNED BY: JULIO Lowry) August 22, 2024 2:58 PM documented in this encounter [facility] 08-22-2024 Note HNO ID: [id number] Author: MIGUEL ANGEL SINGER RT (R) Service: ? Author Type: Technologist Type: Progress Notes Filed: 08/22/2024 14:58 Note Text: Radiology Service Progress Note PATIENT NAME: Madelyn Juarez DATE OF SERVICE: August 22, 2024 TIME: 2:58 PM PATIENT IDENTITY VERIFICATION COMPLETED USING TWO (2) IDENTIFIERS: Name and Date of confirmed by patient verbally. FALL SCREENING: Has the patient had 2 falls in the last year or 1 fall with injury or currently using an Ambulatory Assistive Device (Walker, Cane, Wheelchair, Crutches, etc.)? No PATIENT GENDER DATA: Female. status: : No status: NO. PATIENT RELEVANT IMPLANT DATA REVIEWED: Not Applicable PATIENT PRESENTS WITH AN IMPLANTABLE OR ATTACHED FEDERAL AID COORDINATOR: No RADIOLOGY DEPARTMENT: General X-ray: Exam(s) Completed: Chest X-Ray PERIPHERAL IV DATA: Not applicable SIGNED BY: JULIO Lowry) August 22, 2024 2:[address] [facility] 07-02-2024 History of Present illness Narrative Radiology Service Progress Note PATIENT NAME: Madelyn Juarez DATE OF SERVICE: July 02, 2024 TIME: 7:20 AM PATIENT IDENTITY VERIFICATION COMPLETED USING TWO (2) IDENTIFIERS: Name and Date of confirmed by patient verbally. FALL SCREENING: Has the patient had 2 falls in the last year or 1 fall with injury or currently using an Ambulatory Assistive Device (Walker, Cane, Wheelchair, Crutches, etc.)? No PATIENT GENDER DATA: Female. status: : No status: NO. PATIENT RELEVANT IMPLANT DATA REVIEWED: Not Applicable PATIENT PRESENTS WITH AN IMPLANTABLE OR ATTACHED FEDERAL AID COORDINATOR: No RADIOLOGY DEPARTMENT: Mammography PERIPHERAL IV DATA: Not applicable SIGNED BY: JULIO Henry) July 02, 2024 7:20 AM The sensitive examination was discussed with the Patient or Patient's Authorized Bush Hog Operator. As applicable, any other physician, advance practice provider, medical student, or other health professional student that will be observing or involved in the sensitive examination for educational or training purposes was discussed with the Patient or Authorized Bush Hog Operator. The Patient or Authorized Bush Hog Operator has agreed to proceed with the sensitive examination. (Sensitive examination includes inspection and/or palpation of the breasts, pelvis, prostate and anorectal regions) documented in this encounter [facility] 07-02-2024 Note HNO ID: [id number] Author: CHI TURNER RT(Ap) Service: Radiology Author Type: Technologist Type: Progress Notes Filed: 07/02/2024 07:21 Note Text: Radiology Service Progress Note PATIENT NAME: Madelyn Juarez DATE OF SERVICE: July 02, 2024 TIME: 7:20 AM PATIENT IDENTITY VERIFICATION COMPLETED USING TWO (2) IDENTIFIERS: Name and Date of confirmed by patient verbally. FALL SCREENING: Has the patient had 2 falls in the last year or 1 fall with injury or currently using an Ambulatory Assistive Device (Walker, Cane, Wheelchair, Crutches, etc.)? No PATIENT GENDER DATA: Female. status: : No status: NO. PATIENT RELEVANT IMPLANT DATA REVIEWED: Not Applicable PATIENT PRESENTS WITH AN IMPLANTABLE OR ATTACHED FEDERAL AID COORDINATOR: No RADIOLOGY DEPARTMENT: Mammography PERIPHERAL IV DATA: Not applicable SIGNED BY: JULIO Henry) July 02, 2024 7:20 AM [facility] 07-02-2024 Note HNO ID: [id number] Author: CHI TURNER RT(R) Service: Radiology Author Type: Technologist Type: Progress Notes Filed: 07/02/2024 07:21 Note Text: The sensitive examination was discussed with the Patient or Patient's Authorized Bush Hog Operator. As applicable, any other physician, advance practice provider, medical student, or other health professional student that will be observing or involved in the sensitive examination for educational or training purposes was discussed with the Patient or Authorized Bush Hog Operator. The Patient or Authorized Bush Hog Operator has agreed to proceed with the sensitive examination. 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 The patient: declined Madelyn Juarez 06/16/2025 54 y.o. Primary Care Physician: VERA GARCÍA Chief Complaint Patient presents with Annual Exam HPI : Madelyn Juarez is a 54 y.o. female here for annual exam . Her periods have been very irregular over th past year. They are not associated with any hot flashes or night sweats. She has also noted some weight gain in spite of regular exercise. __ Gynecologic History: Patient's last menstrual period was 01/14/2024. Menses are not regular. Menses occur every 3-4 months. Flow is moderate lasting 4 days. Intermenstrual bleeding: no Dysmenorrhea: none Contraception: IUD paragard 2017 Preventative Health Testing: Date of Last Pap Smear: 2019, neg Abnormal Pap Smear History: na Date of Last Mammogram: 06/07/2023 Date of Last Colonoscopy: 2019, neg hx ibsd Past Medical History: Diagnosis Date Allergies High cholesterol Inappropriate sinus tachycardia (HCC) Past Surgical History: Procedure Laterality Date ARM SURGERY (HISTORICAL) Left CHOLECYSTECTOMY COLONOSCOPY 2019 10 year follow up SINUS SURGERY Family History Problem Relation Name Age of Onset Colon cancer Maternal Grandfather Cancer Mother bone Breast cancer Mother Breast cancer Mother's Sister Lymphoma Paternal Cousin Brain cancer Paternal Cousin Social History Socioeconomic History Marital status: Spouse name: Not on file Number of children: Not on file Years of education: Not on file Highest education level: Not on file Occupational History Not on file Tobacco Use Smoking status: Former Passive exposure: Never Smokeless tobacco: Never Vaping Use Vaping status: Never Used Substance and Sexual Activity Alcohol use: Not Currently Drug use: Never Sexual activity: Yes Partners: Male Comment: Pararani 2017 Other Topics Concern Not on file Social History Narrative Not on file Social Determinants of Health Financial Resource Strain: Not on file Food Insecurity: Not on file Transportation Needs: Not on file Physical Activity: Not on file Stress: Not on file Social Connections: Not on file Intimate Partner Violence: Not on file Housing Stability: Not on file MEDICATIONS: Current Outpatient Medications Medication Sig Dispense Refill atorvastatin (Lipitor) 40 MG tablet Take 40 mg by mouth daily. Creon [id number] units capsule delayed-release particles capsule TAKE 1 CAPSULE BY MOUTH WITH MEALS AND SNACK diphenoxylate-atropine (Lomotil) 2.5-0.025 MG tablet TAKE 1 TABLET BY MOUTH EVERY 8 HOURS NEEDED FOR DIARRHEA doxycycline (Vibramycin) 100 MG capsule ezetimibe (Zetia) 10 MG tablet Take 10 mg by mouth daily. hyoscyamine (Anaspaz,Levsin) 0.125 MG tablet Take 0.125 mg by mouth 3 times daily as needed. levocetirizine (Xyzal) 5 MG tablet Take 5 mg by mouth every evening. metoprolol succinate XL (Toprol-XL) 50 MG 24 hr tablet Take 50 mg by mouth daily. PARAGARD INTRAUTERINE COPPER IU by IntraUTERine route. Inserted 2017 promethazine-dextromethorphan (Phenergan-DM) 6.25-15 MG/5ML syrup No current facility-administered medications for this visit. ALLERGIES: Allergies as of 06/16/2024 - Reviewed 06/16/2024 Allergen Reaction Noted Metronidazole 11/16/2016 Penicillins Shortness of breath 02/22/2018 Armodafinil 09/26/2021 Milk (cow) 10/23/2019 Shrimp extract 10/23/2019 REVIEW OF SYSTEMS: CONSTIUTIONAL: No weight change or fatigue CV: No Chest Pain with Exertion, Palpitations, Syncope, Edema, Arrhythmia RESPIRATORY: No SOB or Cough, BREAST: No breast abnormalities or lumps GI: No Indigestion, Heartburn, Nausea, vomiting, Diarrhea, Constipation,Bloating or Bowel Changes; No Bloody Stools or melena : No Dysuria, Hematuria or Nocturia. No Urinary Incontinence or Vaginal Discharge,vaginal bleeding, or dysparuenia. NEURO: No CVA, Migraines,Seizure Hx, or Limb Weakness DERM: No Rash, Itching, Mole Changes or Cancer PSYCH: No Depression, Homicidal thoughts,suicidal thoughts, or anxiety MUSCULOSKELETAL: No Arthralgia or Arthritis HEME and LYMPH :No Lymphoma, Von Willebrand's, Hemophillia or Bleeding History PHYSICAL EXAM: Physical Exam Vitals: 06/16/24 0905 BP: 130/76 Pulse: 69 Weight: 196 lb (88.9 kg) Height: 5' 5 (1.651 m) Body mass index is 32.62 kg/m . [place] PULP: BREASTS: no nipple discharge or retraction, no masses, tenderness or skin changes. No lymphadenopathy. EXTERNAL GENITALIA: normal female structures VAGINA: normal ruggae, no lesions CERVIX: no lesions, no cervical motion tenderness, normal appearance. The IUD string is noted at the 4 o'clock position f the cervical os UTERUS: normal mobility, nontender, normal size, shape and consistency. ADNEXA: normal, non tender no masses. URETHRA: normal. nontender BLADDER: non tender. PELVIC SUPPORT DEFECTS: Normal support of vagina, uterus, and bladder ANUS/PERINEUM: no hemorrhoids, masses or warts noted. GENERAL EXAM CONSTITUTIONAL: Well developed, well nourished, well groomed. no acute distress NECK: no thyromegaly, supple. CARDIOVASCULAR: normal rate and rhythm, no edema LUNGS: Normal effort, normal lung sounds, clear auscultation without wheezes, rales, or rhonchi. ABDOMEN:soft, nomalactive bowel sounds, non-tender, non-distended, no rebound or guarding, no hepatospleenomegaly NEUROLOGICAL:cranial nerves 2-12 grossly in tact. LYMPH NODES: no lymphadenapathy axillary or inguinal. SKIN: intact, dry MUSCULOSKELETAL: normal gait, no cyanosis. PSYCHIATRIC Normal mood and affect, A&O x3. Lab Results Component Value Date WBC 7.8 11/16/2021 ] ASSESSMENT/PLAN: Madelyn was seen today for annual exam. Diagnoses and all orders for this visit: Women's annual routine gynecological examination (Primary) Encounter for screening mammogram for breast cancer - Bilateral screening mammogram with tomosynthesis; Future Encounter for surveillance of other contraceptive Follow up in about 1 year (around 06/16/2025), or if symptoms worsen or fail to improve, for AE. Routine health maintenance per patients PCP. documented in this encounter [facility] 10-24-2023 Telephone encounter Note Cancelled [facility] 10-24-2023 Miscellaneous Notes Cancelled Name of Caller: Madelyn Juarez Contact Reason for Appointment: Pt calling to cancel 11.01.23 surgery. Pt states she will hold off on rescheduling for now Office Name: Urogyn Medication Refills need, if any: n/a Medication Name: n/a documented in this encounter [facility] 10-22-2023 Telephone encounter Note Name of Caller: Madelyn Juarez Contact Reason for Appointment: Pt calling to cancel 11.01.23 surgery. Pt states she will hold off on rescheduling for now Office Name: Urogyn Medication Refills need, if any: n/a Medication Name: n/a [facility] 10-18-2023 History of Present illness Narrative Chief Complaint Patient presents with Follow-up HPI: Patient was referred to urogyn by Dr. Evangelina Montana for urinary incontinence and nocturia. She saw Dr. العراقي and had UDS and cystoscopy. She was diagnosed with mixed incontinence- urge and stress as well as stage 2 anterior prolapse. She is scheduled for sling and anterior repair in Oct. Since scheduling, she has been questioning if she needs surgery. She has had some eventful surgeries recently with complications and is nervous about doing surgery if not needed. She reports getting up to void 2-3 times a night, and has urgency and urg incontinence, will see a bathroom and then get intense need to void, can hardly get pants done fast enough. She does report some ZAC, but not often. She does not leak with movement, laughing, sneezing or regular coughs, but she had bronchitis a few weeks back and was coughing severely at that time and did have some leakage. She had been hesitant to try medications, trying to limit what she needs to take Would like opinion on need for surgery History: Past Medical History: Diagnosis Date Allergies High cholesterol Hypertension Inappropriate sinus tachycardia Past Surgical History: Procedure Laterality Date CHOLECYSTECTOMY SINUS SURGERY Family History Problem Relation Name Age of Onset Cancer Mother bone Colon cancer Maternal Grandfather Breast cancer Mother's Sister Breast cancer Mother Allergies Allergen Reactions Metronidazole Other reaction(s): GI Upset Flagyl Penicillins Shortness of breath Armodafinil Other reaction(s): Other: See Comments Milk (Cow) Other reaction(s): GI Upset Shrimp Extract Allergy Skin Test Other reaction(s): GI Upset Current Outpatient Medications on File Prior to Visit Medication Sig Dispense Refill atorvastatin (Lipitor) 40 MG tablet Take 40 mg by mouth daily. Creon [id number] units capsule delayed-release particles capsule TAKE 1 CAPSULE BY MOUTH WITH MEALS AND SNACK diphenoxylate-atropine (Lomotil) 2.5-0.025 MG tablet TAKE 1 TABLET BY MOUTH EVERY 8 HOURS NEEDED FOR DIARRHEA doxycycline (Vibramycin) 100 MG capsule ezetimibe (Zetia) 10 MG tablet Take 10 mg by mouth daily. hyoscyamine (Anaspaz,Levsin) 0.125 MG tablet Take 0.125 mg by mouth 3 times daily as needed. levocetirizine (Xyzal) 5 MG tablet Take 5 mg by mouth every evening. metoprolol succinate XL (Toprol-XL) 50 MG 24 hr tablet Take 50 mg by mouth daily. PARAGARD INTRAUTERINE COPPER IU by IntraUTERine route. promethazine-dextromethorphan (Phenergan-DM) 6.25-15 MG/5ML syrup No current facility-administered medications on file prior to visit. Assessment and Plan: Madelyn was seen today for follow-up. Diagnoses and all orders for this visit: Mixed incontinence urge and stress (Primary) Discussed that it sounds like the urgency/overactive bladder symptoms are far more bothersome, discussed that while there may be some improvement in these with sling/prolapse surgery, the sling is primarily used to treat ZAC and urge incontinence/overactive bladder is typically a medical treatment with ditropan or myrbetriq. I did discuss that I am not a urogyn and do not do UDS testing or interpretation and that Dr. العراقي is a specialist in this area, so I encouraged her to discuss any concerns with his office prior to the day of surgery, and if feels uncomfortable, she can always cancel surgery even now that it is scheduled. Total time spent today with patient, reviewing chart, and completing note is 25 minutes. documented in this encounter [facility] 10-11-2023 Telephone encounter Note Done [facility] 10-11-2023 Miscellaneous Notes Done Name of caller: Es Contact phone number: [phone] Ext. [phone] Relationship to Patient: Kaiden Hammer Provider: Malcom Practice: Urogyn Chief Complaint/Reason for Call: sE reported that she needs to know what location patient will be having surgery at on 11/01/22. Please call her back. Best time of day caller can be reached: Any Patient advised that office/PCP has 24-48 business hours to return their call: No documented in this encounter [facility] [email or web address] 10-11-2023 Telephone encounter Note Name of caller: Es Contact phone number: [phone] Ext. [phone] Relationship to Patient: [employer] Provider: Malcom Practice: Urogyn Chief Complaint/Reason for Call: Es reported that she needs to know what location patient will be having surgery at on 11/01/22. Please call her back. Best time of day caller can be reached: Any Patient advised that office/PCP has 24-48 business hours to return their call: [facility] History of Present illness Narrative HPI Chief Complaint Patient presents with Procedure Cystoscopy 53 y.o. female Here for cysto and to discuss UDS and treatment options. Cystourethroscopy I reviewed the procedure with the patient along with the indications, options, alternatives, risks of having and not having the procedure, benefits, and probability of success. I answered patient's questions in detail. I explained the expected post procedure symptoms including possible dysuria and infection. Pt consented to have procedure. A TIME OUT was performed prior to the procedure using active communication to verify: correct patient by 2 patient identifiers, correct procedure/site, correct patient position, and correct equipment available. All were confirmed with physician, nurse, and patient. Preoperative dx: RADHA Postoperative dx: RADHA Procedure: cystourethroscopy Surgeon: Joel العراقي M.D. Anesthesia: 2% lidocaine jelly Complications: none Disposition: home Indication: as above Findings: 1. Urethra: normal urethral mucosa, no evidence of neoplasm, exudates or diverticula. 2. Bladder: normal bladder cavity, normal vascular pattern, trigone normal with benign-appearing squamous metaplasia, bilateral ureteral orifices with good efflux of urine bilaterally. Trabeculation of the bladder was minimal. Normal interureteric ridge. No evidence of calculi, neoplastic changes, tumor or diverticula. Procedure: The patient was brought to the cystoscopy suite. Surgical consent was obtained. She was the positioned in the dorsal lithotomy position. Urethral meatus was cleansed with betadine. A #17 [place] 70 degree cystoscopy was introduced transurethrally. The bladder was filled with 250ml of sterile water. Beginning at 12 o'clock position at the dome of the bladder, a systemic clockwise survey of the bladder was undertaken in a clockwise fashion. Then, 0 degree uresthroscope was introduced. The tip of the urethroscope was brought to the level of the bladder neck. It was withdrawn slightly so that the entire urethrovesical junction was seen. The entire urethral lumen was visualized with water distention. The bladder was drained at the conclusion of the procedure. The instrument was removed. The procedure was well tolerated by the patient. UDS COMPLEX UROFLOWMETRY: Specifications: Performed in sitting position on Urodynamic chair. Pre-test urge to void: 12/01. (Deleon: 1 = no urge to void, 5 = desire to void (no pain or fear of leakage), 10 = strong desire to void + pain and /or fear of leakage) Clinical Reliability of Uroflow per patient: [x] Reliable [] Not reliable [] Unable to void Void Volume: 10 mL. PVR: 50 mL. Voiding pattern: [x] Continuous [] Intermittent [] Interrupted [] Unable to void Qmax: 3.7 Ml/s. Urine Dipstick: negative COMPLEX CYSTOMETRY: Specifications: Performed in urodynamic chair in the upright position. Air-charged sensor catheters placed transurethrally and transrectally. Calibration to resting pDet < 10 cm H20. Filling medium: room temperature sterile water. Fill rate: 41 mL/minute. Catheter placement note: [x] Without difficulty [] Difficult: Prolapse reduction: [] Scopette [] Speculum [] Pessary [x] N/A Filling Sensation: First sensation of fillin mL First desire to void: 101 mL Strong desire to void: 138 mL Detrusor Activity: Detrusor overactivity present: [] Yes [x] No Intravesical volume: 0 mL. Urine loss associated with detrusor contraction: [] Yes [] No [x] N/A Leakage perceived by patient: [] Yes [] No [x] N/A Cystometric Capacity: 199 mL. End point: [x] Patient felt full [] Overactive bladder/Urge urinary incontinence Urodynamic Stress Test: 1. Result: no leak Provocation method: cough Intravesical volume: 101 mL. Pressure Measurement: 157 cm H20. 2. Result: no leak Provocation method: cough Intravesical volume: 199 mL. Pressure Measurement: 139 cm H20. PRESSURE-FLOW STUDY: Voided Volume: 85 mL. Clinical Reliability: [x] Reliable [] Not reliable [] Unable to void Urine Flow: [] Continuous [x] Intermittent [x] Interrupted [] Unable to void Maximum flow rate: 4.8 mL/s. PVR: 114 mL. Evidence of straining: [] Yes [x] No Bladder Outflow Obstruction: equivocal SURFACE ELECTROMYOGRAPHY: Specifications: Adhesive surface electrodes placed: 2 recording electrodes on either side of the anal sphincter and 1 ground electrode. Electrode wires connected to a 12 V electromyography unit. Activity during filling: [x] Normal [] Increased [] Decreased Activity during voiding pressure study: [x] Normal [] Increased [] Decreased URETHRAL MOBILITY: [] Present [] Minimal [x] Absent INTERPRETATION: Technical Quality of Test: [x] Adequate [] Inadequate Clinical Reliability of Test: [x] Reliable [] Not reliable BLADDER STORAGE FUNCTION: Bladder sensation: [] Normal [] Reduced [] Absent [x] Increased Detrusor activity: [x] Normal [] Reduced [] Absent [] Increased Bladder compliance: [x] Normal [] Reduced [] Absent [] Increased Bladder capacity: [] Normal [x] Reduced [] Absent [] Increased URETHRAL FUNCTION: [x] Normal [] Urodynamic Stress Urinary Incontinence [] Intrinsic Sphincter Deficiency [] Kjxatobl-Vsnromnwb-Vgyxenfhskx VOIDING FUNCTION: Detrusor Function: [x] Normal [] Reduced [] Absent [] Increased Urethral Function: [x] Normal [] Absent [] Increased Urinary complaints started few years ago. Getting worse now. Tried Kegel's with no results. Stress incontinence: yes, severe. It bothers her a lot and significantly impacts her quality of life. Urgency: yes Urge incontinence: yes Frequency: no, urinates every 3 and 4 hours during the day Nocturia: yes, 2 - 3x per night Enuresis: No Pad use: no Feels like she empties her bladder well. No recurrent UTI. No macroscopic hematuria. 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 Other bowel problems: None. Past Surgical History: Procedure Laterality Date CHOLECYSTECTOMY SINUS SURGERY Past Medical History: Diagnosis Date Allergies High cholesterol Hypertension Inappropriate sinus tachycardia Current Outpatient Medications Medication Sig Dispense Refill atorvastatin (Lipitor) 40 MG tablet Take 40 mg by mouth daily. Creon [id number] units capsule delayed-release particles capsule TAKE 1 CAPSULE BY MOUTH WITH MEALS AND SNACK diphenoxylate-atropine (Lomotil) 2.5-0.025 MG tablet TAKE 1 TABLET BY MOUTH EVERY 8 HOURS NEEDED FOR DIARRHEA doxycycline (Vibramycin) 100 MG capsule ezetimibe (Zetia) 10 MG tablet Take 10 mg by mouth daily. hyoscyamine (Anaspaz,Levsin) 0.125 MG tablet Take 0.125 mg by mouth 3 times daily as needed. levocetirizine (Xyzal) 5 MG tablet Take 5 mg by mouth every evening. metoprolol succinate XL (Toprol-XL) 50 MG 24 hr tablet Take 50 mg by mouth daily. PARAGARD INTRAUTERINE COPPER IU by IntraUTERine route. promethazine-dextromethorphan (Phenergan-DM) 6.25-15 MG/5ML syrup No current facility-administered medications for this visit. OB History 1 Para Term AB Living 1 SAB IAB Ectopic Multiple Live Births Allergies Allergen Reactions Metronidazole Other reaction(s): GI Upset Flagyl Penicillins Shortness of breath Armodafinil Other reaction(s): Other: See Comments Milk (Cow) Other reaction(s): GI Upset Shrimp Extract Allergy Skin Test Other reaction(s): GI Upset There were no vitals taken for this visit. Physical Exam Vulva: normal Vagina: normal Cervix: normal Aa -1, Ba -1, C -5 gh 4, pb 3, tvl 9 Ap -1, Bp -1, D -7 Levators: 2/5 Urethra: Hypermobility: Yes Incontinence: Supine: yes Bimanual: uterus AV, mobile, nontender, not enlarged, no adnexal masses felt Rectal: good tone Assessment: Diagnosis Plan 1. ZAC (stress urinary incontinence, female) 2. Midline cystocele 3. Overactive bladder I spent a total time of 40 minutes caring for this patient today. The patient was seen and examined. A chart review including tests and operative reports was performed. I have also spent time communicating results to the patient, counseling/educating the patient, documenting in the medical record and ordering the necessary procedures. I discussed the diagnosis and importance of compliance with the treatment plan. Stress urinary incontinence. The patient was informed that no stress urinary incontinence was observed during urodynamic studies, although the cough stress test was positive during physical examination in the office. Stress urinary incontinence was again discussed with the patient and explained. The patient is positive that, in real life, during her daily activities and/or physical activities she has severe and bothersome stress urinary incontinence. It significantly impacts her quality of life. Observation versus physical therapy versus sling surgery was discussed again and explained. After all the risks, benefits, and alternatives were reviewed, the patient decided to proceed with the sling surgery. A suburethral sling is recommended. I discussed the use of natural and synthetic material for her sling. I also discussed harvesting the patient's own tissue. The patient would prefer a synthetic material. The patient is a candidate for a suburethral sling using synthetic material, and cystoscopy. The patient understands the purpose of the surgery. She understands the risks, which include but are not limited to pain (acute postoperative and/or chronic), bleeding, infection, injury to adjacent organs (including the bladder, bowel, urethra, ureters, blood vessels and nerves), dyspareunia, and fistula formation. The risk of mesh erosion was explained. She is aware of the possibility of additional surgery and/or re-operation to address any complications. She is aware of the risks of anesthesia, blood clots, and possible need for transfusion of blood products. She is aware of the possibility of urinary retention and the need for catheterization post-operatively. She understands that no operation can provide a 100% guarantee, and that recurrence of her stress incontinence is possible in the future. She understands that this operation is designed to treat stress incontinence specifically, and does not address detrusor instability, urge incontinence or other symptoms of overactive bladder. The patient was made aware of conservative options for treatment and has either tried or declined them. The patient demonstrated her understanding of the above and asked appropriate questions. All her questions were answered and verbal informed consent was obtained. Also, pt with stage 2 anterior vaginal prolapse. Observation and different treatment options were discussed with the pt in detail. Pt would like to proceed with the surgical treatment at the same time with surgery for ZAC. She is a candidate for anterior repair. She understands the risks, which include but are not limited to pain (acute postoperative and/or chronic), bleeding, infection, injury to adjacent organs (including the bladder, bowel, urethra, ureters, blood vessels and nerves), dyspareunia, and fistula formation. She is aware of the possibility of additional surgery and/or re-operation to address any complications. She is aware of the risks of anesthesia, blood clots, and possible need for transfusion of blood products. She is aware of the possibility of urinary retention and the need for catheterization post-operatively. She understands that no operation can provide a 100% guarantee, and that recurrence of her prolapse is possible in the future. She understands that this operation is designed to treat prolapse specifically, and does not address stress urinary incontinence, detrusor instability, urge incontinence or other symptoms of overactive bladder. The patient was made aware of conservative options for treatment and has either tried or declined them. The patient demonstrated her understanding of the above and asked appropriate questions. All her questions were answered and verbal informed consent was obtained. OAB. Pt sated that she is bothered more by ZAC than OAB. She would like to proceed with surgical treatment for ZAC first, then address OAB. Again, she is aware that surgery for ZAC is designed to treat stress incontinence specifically, and does not address detrusor instability, urge incontinence or other symptoms of overactive bladder. Plan: Synthetic midurethral sling, anterior repair, cystoscopy. documented in this encounter [facility] 10-01-2023 Telephone encounter Note Name of caller: Madelyn Juarez Contact phone number: [phone] Relationship to Patient: patient Provider: Dr Artis Practice: Urogyn Chief Complaint/Reason for Call: Pt states her paperwork for procedure 10.05.23 states possible sedation for cystoscopy. It's been a couple months since pt has been seen & she could not remember. Does pt need to have someone drive her for this appt? Please advise Best time of day caller can be reached: Any Patient advised that office/PCP has 24-48 business hours to return their call: Yes [facility] [email or web address] 10-01-2023 Miscellaneous Notes Name of caller: Madelyn Juarez Contact phone number: [phone] Relationship to Patient: patient Provider: Dr Artis Practice: Urogyn Chief Complaint/Reason for Call: Pt states her paperwork for procedure 10.05.23 states possible sedation for cystoscopy. It's been a couple months since pt has been seen & she could not remember. Does pt need to have someone drive her for this appt? 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 The patient: declined Madelyn Juarez 06/04/2024 53 y.o. Primary Care Physician: VERA GARCÍA Chief Complaint Patient presents with Annual Exam HPI : Madelyn Juarez is a 53 y.o. female here for annual exam . She complains of urinary frequency and nocturia 2-3 times during the night which has increased in severity over the past 3 months. She was seen and treated by her pcp several times . However the symptoms have persisted. __ Gynecologic History: Patient's last menstrual period was 04/10/2023 (exact date). Menses are not regular. Last cycle was 56 days ago . Menses occur every 30-60 days. Flow is light for 4-5 days. Intermenstrual bleeding: na Dysmenorrhea: none Contraception: IUD Paragard IUD placed 2016 Preventative Health Testing: Date of Last Pap Smear: 2019, neg Abnormal Pap Smear History: na Date of Last Mammogram: 2021, neg Date of Last Colonoscopy: 2019, neg Past Medical History: Diagnosis Date Allergies High cholesterol Hypertension Inappropriate sinus tachycardia Past Surgical History: Procedure Laterality Date CHOLECYSTECTOMY SINUS SURGERY Family History Problem Relation Name Age of Onset Cancer Mother bone Colon cancer Maternal Grandfather Breast cancer Mother's Sister Breast cancer Mother Social History Socioeconomic History Marital status: Spouse name: Not on file Number of children: Not on file Years of education: Not on file Highest education level: Not on file Occupational History Not on file Tobacco Use Smoking status: Former Smokeless tobacco: Never Vaping Use Vaping Use: Never used Substance and Sexual Activity Alcohol use: Not Currently Drug use: Never Sexual activity: Yes Partners: Male Comment: Mynor Other Topics Concern Not on file Social History Narrative Not on file Social Determinants of Health Financial Resource Strain: Not on file Food Insecurity: Not on file Transportation Needs: Not on file Physical Activity: Not on file Stress: Not on file Social Connections: Not on file Intimate Partner Violence: Not on file Housing Stability: Not on file MEDICATIONS: Current Outpatient Medications Medication Sig Dispense Refill atorvastatin (Lipitor) 40 MG tablet Take 40 mg by mouth daily. Creon [id number] units capsule delayed-release particles capsule TAKE 1 CAPSULE BY MOUTH WITH MEALS AND SNACK ezetimibe (Zetia) 10 MG tablet Take 10 mg by mouth daily. hyoscyamine (Anaspaz,Levsin) 0.125 MG tablet Take 0.125 mg by mouth 3 times daily as needed. levocetirizine (Xyzal) 5 MG tablet Take 5 mg by mouth every evening. metoprolol succinate XL (Toprol-XL) 50 MG 24 hr tablet Take 50 mg by mouth daily. PARAGARD INTRAUTERINE COPPER IU by IntraUTERine route. No current facility-administered medications for this visit. ALLERGIES: Allergies as of 06/04/2023 - Reviewed 06/04/2023 Allergen Reaction Noted Metronidazole 11/16/2016 Penicillins Shortness of breath 02/22/2018 Armodafinil 09/26/2021 Milk (cow) 10/23/2019 Shrimp extract allergy skin test 10/23/2019 REVIEW OF SYSTEMS: CONSTIUTIONAL: No weight change or fatigue CV: No Chest Pain with Exertion, Palpitations, Syncope, Edema, Arrhythmia RESPIRATORY: No SOB or Cough, BREAST: No breast abnormalities or lumps GI: No Indigestion, Heartburn, Nausea, vomiting, Diarrhea, Constipation,Bloating or Bowel Changes; No Bloody Stools or melena : No Dysuria, Hematuria or Nocturia. No Urinary Incontinence or Vaginal Discharge,vaginal bleeding, or dysparuenia. NEURO: No CVA, Migraines,Seizure Hx, or Limb Weakness DERM: No Rash, Itching, Mole Changes or Cancer PSYCH: No Depression, Homicidal thoughts,suicidal thoughts, or anxiety MUSCULOSKELETAL: No Arthralgia or Arthritis HEME and LYMPH :No Lymphoma, Von Willebrand's, Hemophillia or Bleeding History PHYSICAL EXAM: Physical Exam Vitals: 06/04/23 0918 BP: (!) 158/86 Pulse: 76 Weight: 198 lb 12.8 oz (90.2 kg) Height: 5' 5 (1.651 m) Body mass index is 33.08 kg/m . [place] PULP: BREASTS: no nipple discharge or retraction, no masses, tenderness or skin changes. No lymphadenopathy. EXTERNAL GENITALIA: normal female structures VAGINA: normal ruggae, no lesions CERVIX: no lesions, no cervical motion tenderness, normal appearance. UTERUS: normal mobility, nontender, normal size, shape and consistency. ADNEXA: normal, non tender no masses. URETHRA: normal. nontender BLADDER: non tender. PELVIC SUPPORT DEFECTS: Normal support of vagina, uterus, and bladder. No cystocele. However the urethra is hypermobile. ANUS/PERINEUM: no hemorrhoids, masses or warts noted. GENERAL EXAM CONSTITUTIONAL: Well developed, well nourished, well groomed. no acute distress NECK: no thyromegaly, supple. CARDIOVASCULAR: normal rate and rhythm, no edema LUNGS: Normal effort, normal lung sounds, clear auscultation without wheezes, rales, or rhonchi. ABDOMEN:soft, nomalactive bowel sounds, non-tender, non-distended, no rebound or guarding, no hepatospleenomegaly NEUROLOGICAL:cranial nerves 2-12 grossly in tact. LYMPH NODES: no lymphadenapathy axillary or inguinal. SKIN: intact, dry MUSCULOSKELETAL: normal gait, no cyanosis. PSYCHIATRIC Normal mood and affect, A&O x3. Lab Results Component Value Date WBC 7.8 11/16/2021 ] ASSESSMENT/PLAN: Madelyn was seen today for annual exam. Diagnoses and all orders for this visit: Women's annual routine gynecological examination (Primary) Encounter for screening mammogram for breast cancer - Bilateral screening mammogram with tomosynthesis; Future Nocturia - Ambulatory referral to Urogynecology; Future Referral of patient - Ambulatory referral to Urogynecology; Future Follow up if symptoms worsen or fail to improve, for follow up after urogyn. . Routine health maintenance per patients PCP. documented in this encounter [facility] 03-19-2023 Miscellaneous Notes Please notify patient that urine culture was negative for remarkable bacteria growth. Continue antibiotic for skin issue. If s/s persist post-antibiotic completion, follow up with PCP. Thanks documented in this encounter [facility] 03-18-2023 Note HNO ID: [id number] Author: Esther Mednez APRN.JL Service: ? Author Type: Nurse Practitioner Type: Progress Notes Filed: 03/18/2023 2:28 PM Note Text: March 18, 2023 Subjective Chief Complaint: Back Pain (Low back pa x 2 nights/Pt states that she also has a bug bite to the inner left thigh that is red,itches,warm to touch noticed this on 3wks though it was poison karely then 2 nights ago she noticed some low back pa and is not sure it it related/Pt states that she has a kidney stone in the past /) HPI: Madelyn Juarez is a 52 year old female who presents today for low back pain for 2 days along with urinary frequency. Denies fever, chills. Also has left upper thigh redness that is getting bigger. Reports there are 2 insect bite sites. She worked in her flower bed x3 weeks ago and has noticed this but it keeps getting worse and not better. PAST MEDICAL HISTORY Diagnosis Date Cholecystitis Hypercholesterolemia IBS (irritable bowel syndrome) Kidney stone Sinus tachycardia PAST SURGICAL HISTORY Procedure Laterality Date D AND C NASAL ENDOS,DIAG,UNI/ BILATERAL RADIUS/ULNER FX ORTH Left REMOVAL GALLBLADDER FAMILY HISTORY Problem Relation Age of Onset Breast Cancer Mother Cancer Mother Bone Breast Cancer Other 2 Aunts Colon Cancer Maternal Grandfather Social History Tobacco Use Smoking status: Never Smokeless tobacco: Never Vaping Use Vaping Use: Never used Substance Use Topics Alcohol use: Not Currently ALLERGIES Allergen Reactions Metronidazole GI Upset Flagyl Armodafinil Other: See Comments Milk GI Upset Penicillins Shortness of Breath Shrimp GI Upset There is no immunization history on file for this patient. Current Medications: HYDROcodone-acetaminophen (NORCO) 5-325 mg per tablet Take 1 tablet by mouth. Hyoscyamine Sulfate 0.125 mg/5 mL elix levocetirizine 5 mg tablet 5 mg. metoprolol succinate ER (TOPROL XL) 50 mg 24 hr tablet once daily. lipase/protease/amylase (CREON ORAL) Take by mouth once daily. atorvastatin (LIPITOR) 40 mg tablet Take 40 mg by mouth once daily. ezetimibe (ZETIA) 10 mg tablet Take 10 mg by mouth once daily. For 30 days ezetimibe (ZETIA) 10 mg tablet once daily. metoprolol succinate ER (TOPROL XL) 50 mg 24 hr tablet Take 50 mg by mouth once daily. Review of Systems Constitutional: Negative. HENT: Negative. Eyes: Negative. Respiratory: Negative. Cardiovascular: Negative. Gastrointestinal: Negative. Genitourinary: Positive for frequency. Musculoskeletal: Negative. Skin: Positive for rash (left upper inner thigh). Neurological: Negative. Objective BP 144/83 Pulse 80 Temp 98.6 Resp 20 Wt 198 lb (89.8kg) SpO2 98% LMP 03/06/2023 Physical Exam Vitals and nursing note reviewed. Constitutional: Appearance: Normal appearance. HENT: Head: Normocephalic and atraumatic. Right Ear: Tympanic membrane, ear canal and external ear normal. There is no impacted cerumen. Left Ear: Tympanic membrane, ear canal and external ear normal. There is no impacted cerumen. Nose: Nose normal. Mouth/Throat: Mouth: Mucous membranes are moist. Pharynx: Oropharynx is clear. Eyes: Extraocular Movements: Extraocular movements intact. Conjunctiva/sclera: Conjunctivae normal. Pupils: Pupils are equal, round, and reactive to light. Cardiovascular: Rate and Rhythm: Normal rate and regular rhythm. Pulses: Normal pulses. Heart sounds: Normal heart sounds. Pulmonary: Effort: Pulmonary effort is normal. Breath sounds: Normal breath sounds. Abdominal: General: Bowel sounds are normal. Palpations: Abdomen is soft. Tenderness: There is no right CVA tenderness or left CVA tenderness. Musculoskeletal: General: Normal range of motion. Cervical back: Normal range of motion and neck supple. Skin: General: Skin is warm and dry. Findings: Erythema and rash present. Neurological: General: No focal deficit present. Mental Status: She is alert and oriented to person, place, and time. Psychiatric: Mood and Affect: Mood normal. ASSESSMENT/PLAN: 1. Acute midline low back pain without sciatica - ICD9: 724.2, ICD10: M54.50 (primary diagnosis) - UA DIP B/O 2. Urinary frequency - ICD9: 788.41, ICD10: R35.0 -Acute - UA positive for derick esterase - Send urine for culture - Begin treatment with Bactrim DS BID for 10 days - Patient education for prevention given - UA DIP B/O 3. Insect bite of left thigh, initial encounter - ICD9: 916.4, E906.4, ICD10: S70.362A, W57.XXXA 4. Cellulitis of left thigh - ICD9: 682.6, ICD10: L03.116 - Begin treatment with Trimethoprim-sulfamethozazole (Bactrim) 2 DS PO BID - No lymphangetic streaking, this was defined for patient to watch for and to seek medical care immediately if appears - Follow up for recheck in three days Esther Mendez APRN.JL The above reflects my independent exam and review of the patient's medical record. I saw (more content not included)... [facility] 03-18-2023 Miscellaneous Notes Addended by: ESTHER MENDEZ on: 03/18/2023 02:36 PM Modules accepted: Orders documented in this encounter [facility] 03-18-2023 Instructions Esther Mendez APRN.JL - 03/18/2023 2:18 PM EDT You have a cellulitis from an insect bite. You have low back pain and urinary frequency. You urine dip was positive for trace leukocytes. I will treat with Bactrim twice daily for 10 days. This will treat both infections. Preliminary urine testing completed in [facility] is indicative of a Urinary Tract Infection. We will send your urine to the lab for culture analysis. This is to ensure the antibiotic selected today will indeed treat the bacteria in your urine. A [facility] employee will notify you via telephone with the results in 2-3 days. Increase fluids Avoid caffeine or carbonated drinks at this time Take all medications as ordered Go to ER if you have nausea and vomiting and cannot keep medications down, high fever >101.0 or severe flank pain URINARY TRACT INFECTION GENERAL INFORMATION: A urinary tract infection (UTI) is an infection of the bladder or kidneys. A bladder infection, called cystitis, is the more common type. If the infection travels up to the kidneys, it is called pyelonephritis. This can be more serious. UTIs are a common problem in women. Having sexual relations can leave a woman more susceptible to developing a UTI, but it is not sexually transmitted like gonorrhea. Some women have a problem with recurrent UTIs. INSTRUCTIONS: 1. Your doctor prescribed an antibiotic to treat the UTI. Take exactly as directed. Be sure to take all the medication prescribed, even if your symptoms disappear. If you stop treatment early, the infection may not be fully treated and the symptoms could come back again. 2. Get plenty of rest. You may take acetaminophen for fever and aches. 3. Drink 6 to 8 glasses of fluids, especially water, every day. This helps wash out germs from your urinary tract. Cranberry juice or other sources of vitamin C are also good for you. 4. Urinate often, as soon as you feel the urge. Empty your bladder completely. Urinate before and after you have sex. 5. Always wipe from front to back after going to the bathroom. This pushes germs away from your bladder, rather than towards it. 6. Showers are better than baths, and you should wash the genital area daily. Avoid bubble bath or bath oils if you do take a bath. 7. Wear underwear and pantyhose with a cotton crotch. CONTACT YOUR DOCTOR: 1. You have a temperature over 102F (38.8C) after 48 hours on medication. 2. You notice blood in your urine. 3. Your symptoms don't improve in 2 days. 4. You develop nausea, vomiting, diarrhea, or a rash. 5. You develop new or unexplained symptoms. These may be related to the medication you are taking. 6. Your symptoms return after you finish treatment. RETURN TO THE EMERGENCY DEPARTMENT IF: You develop vomiting and can't keep your medication or fluids down. documented in this encounter [facility] 03-18-2023 History of Present illness Narrative Images from the original note were not included. March 18, 2023 Subjective Chief Complaint: Back Pain (Low back pa x 2 nights/Pt states that she also has a bug bite to the inner left thigh that is red,itches,warm to touch noticed this on 3wks though it was poison karely then 2 nights ago she noticed some low back pa and is not sure it it related/Pt states that she has a kidney stone in the past /) HPI: Madelyn Juarez is a 52 year old female who presents today for low back pain for 2 days along with urinary frequency. Denies fever, chills. Also has left upper thigh redness that is getting bigger. Reports there are 2 insect bite sites. She worked in her flower bed x3 weeks ago and has noticed this but it keeps getting worse and not better. PAST MEDICAL HISTORY Diagnosis Date Cholecystitis Hypercholesterolemia IBS (irritable bowel syndrome) Kidney stone Sinus tachycardia PAST SURGICAL HISTORY Procedure Laterality Date D AND C NASAL ENDOS,DIAG,UNI/ BILATERAL RADIUS/ULNER FX ORTH Left REMOVAL GALLBLADDER FAMILY HISTORY Problem Relation Age of Onset Breast Cancer Mother Cancer Mother Bone Breast Cancer Other 2 Aunts Colon Cancer Maternal Grandfather Social History Tobacco Use Smoking status: Never Smokeless tobacco: Never Vaping Use Vaping Use: Never used Substance Use Topics Alcohol use: Not Currently ALLERGIES Allergen Reactions Metronidazole GI Upset Flagyl Armodafinil Other: See Comments Milk GI Upset Penicillins Shortness of Breath Shrimp GI Upset There is no immunization history on file for this patient. Current Medications: HYDROcodone-acetaminophen (NORCO) 5-325 mg per tablet Take 1 tablet by mouth. Hyoscyamine Sulfate 0.125 mg/5 mL elix levocetirizine 5 mg tablet 5 mg. metoprolol succinate ER (TOPROL XL) 50 mg 24 hr tablet once daily. lipase/protease/amylase (CREON ORAL) Take by mouth once daily. atorvastatin (LIPITOR) 40 mg tablet Take 40 mg by mouth once daily. ezetimibe (ZETIA) 10 mg tablet Take 10 mg by mouth once daily. For 30 days ezetimibe (ZETIA) 10 mg tablet once daily. metoprolol succinate ER (TOPROL XL) 50 mg 24 hr tablet Take 50 mg by mouth once daily. Review of Systems Constitutional: Negative. HENT: Negative. Eyes: Negative. Respiratory: Negative. Cardiovascular: Negative. Gastrointestinal: Negative. Genitourinary: Positive for frequency. Musculoskeletal: Negative. Skin: Positive for rash (left upper inner thigh). Neurological: Negative. Objective BP 144/83 Pulse 80 Temp 98.6 Resp 20 Wt 198 lb (89.8kg) SpO2 98% LMP 03/06/2023 Physical Exam Vitals and nursing note reviewed. Constitutional: Appearance: Normal appearance. HENT: Head: Normocephalic and atraumatic. Right Ear: Tympanic membrane, ear canal and external ear normal. There is no impacted cerumen. Left Ear: Tympanic membrane, ear canal and external ear normal. There is no impacted cerumen. Nose: Nose normal. Mouth/Throat: Mouth: Mucous membranes are moist. Pharynx: Oropharynx is clear. Eyes: Extraocular Movements: Extraocular movements intact. Conjunctiva/sclera: Conjunctivae normal. Pupils: Pupils are equal, round, and reactive to light. Cardiovascular: Rate and Rhythm: Normal rate and regular rhythm. Pulses: Normal pulses. Heart sounds: Normal heart sounds. Pulmonary: Effort: Pulmonary effort is normal. Breath sounds: Normal breath sounds. Abdominal: General: Bowel sounds are normal. Palpations: Abdomen is soft. Tenderness: There is no right CVA tenderness or left CVA tenderness. Musculoskeletal: General: Normal range of motion. Cervical back: Normal range of motion and neck supple. Skin: General: Skin is warm and dry. Findings: Erythema and rash present. Neurological: General: No focal deficit present. Mental Status: She is alert and oriented to person, place, and time. Psychiatric: Mood and Affect: Mood normal. ASSESSMENT/PLAN: 1. Acute midline low back pain without sciatica - ICD9: 724.2, ICD10: M54.50 (primary diagnosis) - UA DIP B/O 2. Urinary frequency - ICD9: 788.41, ICD10: R35.0 -Acute - UA positive for derick esterase - Send urine for culture - Begin treatment with Bactrim DS BID for 10 days - Patient education for prevention given - UA DIP B/O 3. Insect bite of left thigh, initial encounter - ICD9: 916.4, E906.4, ICD10: S70.362A, W57.XXXA 4. Cellulitis of left thigh - ICD9: 682.6, ICD10: L03.116 - Begin treatment with Trimethoprim-sulfamethozazole (Bactrim) 2 DS PO BID - No lymphangetic streaking, this was defined for patient to watch for and to seek medical care immediately if appears - Follow up for recheck in three days Esther Mendez APRN.CNP The above reflects my independent exam and review of the patient's medical record. I saw and examined the patient myself personally. Parts of the HPI, ROS, exam, impression/plan, and testing results may have been copied from the current or previous clinical notes and remain pertinent to today's visit. Current changes have been made and documented today. Other parts or data may have been deleted if not relevant for today. Plan as outlined above. documented in this encounter [facility] 06-22-2022 Note HNO ID: [id number] Author: Josephine Kingston MD Service: ? Author Type: Physician Type: Progress Notes Filed: 06/22/2022 10:22 AM Note Text: June 22, 2022 Reason for Appointment Patient presents with: Follow Up: Denies any new urinary pain or problems. HPI Madelyn Juarez is a 52 year old female who presents today for a follow-up appointment. The patient said that she is feeling good. She underwent an ultrasound which was negative for hydronephrosis. The ultrasound was suggestive of a 4 mm stone in her right kidney however her CT scan just 3 weeks prior was negative for any nephrolithiasis. I told her that it is highly unlikely that she has any residual calculi at this point. The patient really had no clinical complaints. Current Medications Hyoscyamine Sulfate 0.125 mg/5 mL elix levocetirizine 5 mg tablet 5 mg. metoprolol succinate ER (TOPROL XL) 50 mg 24 hr tablet once daily. lipase/protease/amylase (CREON ORAL) Take by mouth once daily. atorvastatin (LIPITOR) 40 mg tablet Take 40 mg by mouth once daily. ezetimibe (ZETIA) 10 mg tablet Take 10 mg by mouth once daily. For 30 days ezetimibe (ZETIA) 10 mg tablet once daily. metoprolol succinate ER (TOPROL XL) 50 mg 24 hr tablet Take 50 mg by mouth once daily. PAST MEDICAL HISTORY Diagnosis Date Cholecystitis Hypercholesterolemia IBS (irritable bowel syndrome) PAST SURGICAL HISTORY Procedure Laterality Date D AND C NASAL ENDOS,DIAG,UNI/ BILATERAL RADIUS/ULNER FX ORTH Left REMOVAL GALLBLADDER FAMILY HISTORY Problem Relation Age of Onset Breast Cancer Mother Cancer Mother Bone Breast Cancer Other 2 Aunts Colon Cancer Maternal Grandfather Social History Tobacco Use Smoking status: Never Smokeless tobacco: Never Vaping Use Vaping Use: Never used Substance Use Topics Alcohol use: Not Currently ALLERGIES Allergen Reactions Metronidazole Unknown Armodafinil Other: See Comments Milk GI Upset Penicillins Unknown Shrimp GI Upset Objective BP 136/85 Pulse 75 Ht 5' 5 (1.65m) Wt 190 lb (86.2kg) BMI 31.62 kg/(m2). Physical Exam Constitutional: Appearance: Normal appearance. Pulmonary: Effort: Pulmonary effort is normal. Neurological: Mental Status: She is alert and oriented to person, place, and time. ASSESSMENT/PLAN: 1. Ureteral stone - ICD9: 592.1, ICD10: N20.1 The patient successfully passed her stone. Her urinalysis was negative. We will see her back on an as-needed basis. We discussed basic strategies to prevent stone recurrence today. Josephine Kingston MD Follow Up Return if symptoms worsen or fail to improve. [facility] 06-22-2022 History of Present illness Narrative June 22, 2022 Reason for Appointment Patient presents with: Follow Up: Denies any new urinary pain or problems. MELVA Madelyn Juarez is a 52 year old female who presents today for a follow-up appointment. The patient said that she is feeling good. She underwent an ultrasound which was negative for hydronephrosis. The ultrasound was suggestive of a 4 mm stone in her right kidney however her CT scan just 3 weeks prior was negative for any nephrolithiasis. I told her that it is highly unlikely that she has any residual calculi at this point. The patient really had no clinical complaints. Current Medications Hyoscyamine Sulfate 0.125 mg/5 mL elix levocetirizine 5 mg tablet 5 mg. metoprolol succinate ER (TOPROL XL) 50 mg 24 hr tablet once daily. lipase/protease/amylase (CREON ORAL) Take by mouth once daily. atorvastatin (LIPITOR) 40 mg tablet Take 40 mg by mouth once daily. ezetimibe (ZETIA) 10 mg tablet Take 10 mg by mouth once daily. For 30 days ezetimibe (ZETIA) 10 mg tablet once daily. metoprolol succinate ER (TOPROL XL) 50 mg 24 hr tablet Take 50 mg by mouth once daily. PAST MEDICAL HISTORY Diagnosis Date Cholecystitis Hypercholesterolemia IBS (irritable bowel syndrome) PAST SURGICAL HISTORY Procedure Laterality Date D AND C NASAL ENDOS,DIAG,UNI/ BILATERAL RADIUS/ULNER FX ORTH Left REMOVAL GALLBLADDER FAMILY HISTORY Problem Relation Age of Onset Breast Cancer Mother Cancer Mother Bone Breast Cancer Other 2 Aunts Colon Cancer Maternal Grandfather Social History Tobacco Use Smoking status: Never Smokeless tobacco: Never Vaping Use Vaping Use: Never used Substance Use Topics Alcohol use: Not Currently ALLERGIES Allergen Reactions Metronidazole Unknown Armodafinil Other: See Comments Milk GI Upset Penicillins Unknown Shrimp GI Upset Objective BP 136/85 Pulse 75 Ht 5' 5 (1.65m) Wt 190 lb (86.2kg) BMI 31.62 kg/(m^2). Physical Exam Constitutional: Appearance: Normal appearance. Pulmonary: Effort: Pulmonary effort is normal. Neurological: Mental Status: She is alert and oriented to person, place, and time. ASSESSMENT/PLAN: 1. Ureteral stone - ICD9: 592.1, ICD10: N20.1 The patient successfully passed her stone. Her urinalysis was negative. We will see her back on an as-needed basis. We discussed basic strategies to prevent stone recurrence today. Josephine Kingston MD Follow Up Return if symptoms worsen or fail to improve. documented in this encounter [facility] 05-17-2022 Note HNO ID: [id number] Author: Josephine Kingston MD Service: ? Author Type: Physician Type: Progress Notes Filed: 05/17/2022 9:08 AM Note Text: May 17, 2022 Reason for Appointment Patient presents with: Consult: Patient is here for kidney stone. She was in the ER on 05/02/22. She is not having any pain. HPI Madelyn Juarez is a 52 year old female who presents today for further evaluation of a 2 mm right UVJ stone. The patient was in the emergency room about 2 weeks ago with severe right-sided flank pain. She underwent a CT scan which I personally reviewed with her. The patient did have a 2 mm stone at the right UVJ causing hydroureteronephrosis. There were no proximal ureteral stones. The patient also had an elevated lipase at that time. She said that she was not having abdominal pain but right flank pain. She denies any fever or chills. Today she also denies any dysuria, urgency, or frequency. Current Medications lipase/protease/amylase (CREON ORAL) Take by mouth once daily. atorvastatin (LIPITOR) 40 mg tablet Take 40 mg by mouth once daily. ezetimibe (ZETIA) 10 mg tablet Take 10 mg by mouth once daily. For 30 days ezetimibe (ZETIA) 10 mg tablet once daily. metoprolol succinate ER (TOPROL XL) 50 mg 24 hr tablet once daily. metoprolol succinate ER (TOPROL XL) 50 mg 24 hr tablet Take 50 mg by mouth once daily. PAST MEDICAL HISTORY Diagnosis Date Cholecystitis Hypercholesterolemia IBS (irritable bowel syndrome) PAST SURGICAL HISTORY Procedure Laterality Date D AND C NASAL ENDOS,DIAG,UNI/ BILATERAL RADIUS/ULNER FX ORTH Left REMOVAL GALLBLADDER FAMILY HISTORY Problem Relation Age of Onset Breast Cancer Mother Cancer Mother Bone Breast Cancer Other 2 Aunts Colon Cancer Maternal Grandfather Social History Tobacco Use Smoking status: Never Smokeless tobacco: Never Substance Use Topics Alcohol use: Not Currently ALLERGIES Allergen Reactions Metronidazole Unknown Armodafinil Other: See Comments Milk GI Upset Penicillins Unknown Shrimp GI Upset Objective BP 140/77 Pulse 69 Ht 5' 5 (1.65m) Wt 192 lb 4.8 oz (87.2kg) SpO2 93% BMI 32.00 kg/(m2). Physical Exam Constitutional: Appearance: Normal appearance. Pulmonary: Effort: Pulmonary effort is normal. Abdominal: Comments: No CVAT, no abdominal tenderness Neurological: Mental Status: She is alert and oriented to person, place, and time. ASSESSMENT/PLAN: 1. Ureteral stone - ICD9: 592.1, ICD10: N20.1 (primary diagnosis) The patient likely passed a small stone in her right ureter. I recommended we get an ultrasound to ensure resolution of the hydronephrosis. We discussed basic strategies to prevent stone recurrence as well. We will send her urine for culture and plan to recheck her urine when she returns. - UA DIP, URINE (POC) - US KIDNEY/BLADDER - URINE CULTURE 2. Other chronic pancreatitis (HCC) - ICD9: 577.1, ICD10: K86.1 The patient had an elevated lipase. I recommended that we repeat her pancreatic enzymes to ensure that they have returned to normal. - LIPASE BLD - AMYLASE BLD Josephine Kingston MD Follow Up Return for After u/s, UA. [facility] 05-17-2022 History of Present illness Narrative May 17, 2022 Reason for Appointment Patient presents with: Consult: Patient is here for kidney stone. She was in the ER on 05/02/22. She is not having any pain. MELVA Juarez is a 52 year old female who presents today for further evaluation of a 2 mm right UVJ stone. The patient was in the emergency room about 2 weeks ago with severe right-sided flank pain. She underwent a CT scan which I personally reviewed with her. The patient did have a 2 mm stone at the right UVJ causing hydroureteronephrosis. There were no proximal ureteral stones. The patient also had an elevated lipase at that time. She said that she was not having abdominal pain but right flank pain. She denies any fever or chills. Today she also denies any dysuria, urgency, or frequency. Current Medications lipase/protease/amylase (CREON ORAL) Take by mouth once daily. atorvastatin (LIPITOR) 40 mg tablet Take 40 mg by mouth once daily. ezetimibe (ZETIA) 10 mg tablet Take 10 mg by mouth once daily. For 30 days ezetimibe (ZETIA) 10 mg tablet once daily. metoprolol succinate ER (TOPROL XL) 50 mg 24 hr tablet once daily. metoprolol succinate ER (TOPROL XL) 50 mg 24 hr tablet Take 50 mg by mouth once daily. PAST MEDICAL HISTORY Diagnosis Date Cholecystitis Hypercholesterolemia IBS (irritable bowel syndrome) PAST SURGICAL HISTORY Procedure Laterality Date D AND C NASAL ENDOS,DIAG,UNI/ BILATERAL RADIUS/ULNER FX ORTH Left REMOVAL GALLBLADDER FAMILY HISTORY Problem Relation Age of Onset Breast Cancer Mother Cancer Mother Bone Breast Cancer Other 2 Aunts Colon Cancer Maternal Grandfather Social History Tobacco Use Smoking status: Never Smokeless tobacco: Never Substance Use Topics Alcohol use: Not Currently ALLERGIES Allergen Reactions Metronidazole Unknown Armodafinil Other: See Comments Milk GI Upset Penicillins Unknown Shrimp GI Upset Objective BP 140/77 Pulse 69 Ht 5' 5 (1.65m) Wt 192 lb 4.8 oz (87.2kg) SpO2 93% BMI 32.00 kg/(m^2). Physical Exam Constitutional: Appearance: Normal appearance. Pulmonary: Effort: Pulmonary effort is normal. Abdominal: Comments: No CVAT, no abdominal tenderness Neurological: Mental Status: She is alert and oriented to person, place, and time. ASSESSMENT/PLAN: 1. Ureteral stone - ICD9: 592.1, ICD10: N20.1 (primary diagnosis) The patient likely passed a small stone in her right ureter. I recommended we get an ultrasound to ensure resolution of the hydronephrosis. We discussed basic strategies to prevent stone recurrence as well. We will send her urine for culture and plan to recheck her urine when she returns. - UA DIP, URINE (POC) - US KIDNEY/BLADDER - URINE CULTURE 2. Other chronic pancreatitis (HCC) - ICD9: 577.1, ICD10: K86.1 The patient had an elevated lipase. I recommended that we repeat her pancreatic enzymes to ensure that they have returned to normal. - LIPASE BLD - AMYLASE BLD Josephine Kingston MD Follow Up Return for After u/s, UA. documented in this encounter [facility] Evaluation note Diagnosis Ureteral stone- Primary Calculus of ureter Other chronic [facility] (HCC[facility] Ureteral stone- Primary Calculus of ureter documented in this encounter [facility] note* Diagnosis Acute midline low back pain without sciatica- Primary Urinary frequency Insect bite of left thigh, initial encounter Cellulitis of left thigh Cellulitis and abscess of leg, except foot documented in this encounter [facility] note* Diagnosis Women's annual routine gynecological examination- Primary Encounter for screening mammogram for breast cancer Nocturia Referral of patient Referral of patient without examination or treatment documented in this encounter [facility] note* Diagnosis ZAC (stress urinary incontinence, female)- Primary Midline cystocele Cystocele, midline Overactive bladder Hypertonicity of bladder Stress incontinence (female) (male) Cystocele, midline documented in this encounter [facility] note* Diagnosis Mixed incontinence urge and stress- Primary Mixed incontinence urge and stress (male)(female) Stress incontinence (female) (male) Cystocele, midline documented in this encounter [facility] note* Diagnosis Women's annual routine gynecological examination- Primary Encounter for screening mammogram for breast cancer Encounter for surveillance of other contraceptive documented in this encounter [facility] note* Diagnosis Acute cough- Primary Impacted cerumen of left ear Impacted cerumen Acute cough documented in this encounter [facility] note* Diagnosis Acute cough documented in this encounter [facility] for referral (narrative)* Diagnostic Procedure Only (Routine) - Pending Review Specialty Diagnoses / Procedures Referred By Zaynab tinajero Referred To Contact US IMAGING Diagnoses Ureteral stone Procedures US KIDNEY/BLADDER US RETROPERITONEAL REAL TIME W/IMAGE COMPLETE Josephine Kingston MD [address] [place] [address] Us Imaging Referral ID Status Reason Start Date Expiration Date Visits Requested Visits Authorized [id number] Pending Review Auto-Generat ed Referral 05/17/2022 06/16/2023 1 1 [facility] for referral (narrative)* Consultation (Routine) - Pending Review Specialty Diagnoses / Procedures Referred By Zaynab tinajero Referred To Contact Urogynecology Diagnoses Nocturia Referral of patient Procedures NC OFFICE/OUTPATIENT [facility] 60-74 MINUTES Amirah Sanchez MD [address] [place] [address] [address] [place] [address] Joel العراقي MD [address] [place] [address], [address] [place] [address] Referral ID Status Reason Start Date Expiration Date Visits Requested Visits Authorized [id number] Pending Review Specialty Services Required 06/06/2023 06/05/2024 1 1 [facility] Summary Purpose Family History No Family History Records FoundNo Family History Records FoundNo Family History Records FoundNo Family History Records FoundNo Family History Records FoundNo Family History Records FoundNo Family History Records FoundNo Family History Records FoundNo Family History Records FoundNo Family History Records FoundNo Family History Records FoundNo Family History Records Found Advance Directives No Advanced Directives Records FoundNo Advanced Directives Records FoundNo Advanced Directives Records FoundNo Advanced Directives Records FoundNo Advanced Directives Records FoundNo Advanced Directives Records FoundNo Advanced Directives Records FoundNo Advanced Directives Records FoundNo Advanced Directives Records FoundNo Advanced Directives Records FoundNo Advanced Directives Records FoundNo Advanced Directives Records Found Additional Source Comments INFORMATION SOURCE (unrecogn ized section and content) DATE CREATED AUTHOR 04/22/2020 Nick Rowe [facility] DATE CREATED AUTHOR AUTHOR'S ORGANIZ ATION 07/09/2020 [facility] DATE CREATED AUTHOR AUTHOR'S ORGANIZ ATION 07/10/2020 [employer] DATE CREATED AUTHOR AUTHOR'S ORGANIZ ATION 07/27/2020 [facility] ([place]) DATE CREATED AUTHOR AUTHOR'S ORGANIZ ATION [facility] [facility] DATE CREATED AUTHOR AUTHOR'S ORGANIZ ATION 03/20/2023 [facility] DATE CREATED AUTHOR AUTHOR'S ORGANIZ ATION 03/24/2023 [facility] DATE CREATED AUTHOR AUTHOR'S ORGANIZ ATION 03/30/2023 [facility] DATE CREATED AUTHOR AUTHOR'S ORGANIZ ATION 07/03/2024 [facility] DATE CREATED AUTHOR AUTHOR'S ORGANIZ ATION 08/24/2024 [facility] DATE CREATED AUTHOR AUTHOR'S ORGANIZ ATION 09/09/2024 [facility] DATE CREATED AUTHOR AUTHOR'S ORGANIZ ATION 11/23/2024 [facility] Source Comments (unrecognize d section and content) In the event this informatio n is protected by the Federal Confidentiality of Alcohol and Drug Abuse Patient Records regulations: The Federal rules restrict any use of the information to criminally investigate or prosecute any alcohol or drug abuse patient.[facility] the event this information is protected by the Federal Confidentiality of Alcohol and Drug Abuse Patient Records regulations: The Federal rules restrict any use of the information to criminally investigate or prosecute any alcohol or drug abuse patient.[facility] the event this information is protected by the Federal Confidentiality of Alcohol and Drug Abuse Patient Records regulations: The Federal rules restrict any use of the information to criminally investigate or prosecute any alcohol or drug abuse patient.[facility] the event this information is protected by the Federal Confidentiality of Alcohol and Drug Abuse Patient Records regulations: The Federal rules restrict any use of the information to criminally investigate or prosecute any alcohol or drug abuse patient.[facility] [facility] HospitalIn the event this information is protected by the Federal Confidentiality of Alcohol and Drug Abuse Patient Records regulations: The Federal rules restrict any use of the information to criminally investigate or prosecute any alcohol or drug abuse patient.[facility] the event this information is protected by the Federal Confidentiality of Alcohol and Drug Abuse Patient Records regulations: The Federal rules restrict any use of the information to criminally investigate or prosecute any alcohol or drug abuse patient.[facility]In the event this information is protected by the Federal Confidentiality of Alcohol and Drug Abuse Patient Records regulations: The Federal rules restrict any use of the information to criminally investigate or prosecute any alcohol or drug abuse patient.[facility] the event this information is protected by the Federal Confidentiality of Alcohol and Drug Abuse Patient Records regulations: The Federal rules restrict any use of the information to criminally investigate or prosecute any alcohol or drug abuse patient.[facility] HospitalIn the event this information is protected by the Federal Confidentiality of Alcohol and Drug Abuse Patient Records regulations: The Federal rules restrict any use of the information to criminally investigate or prosecute any alcohol or drug abuse patient.[facility] HospitalIn the event this information is protected by the Federal Confidentiality of Alcohol and Drug Abuse Patient Records regulations: The Federal rules restrict any use of the information to criminally investigate or prosecute any alcohol or drug abuse patient.[facility] HospitalIn the event this information is protected by the Federal Confidentiality of Alcohol and Drug Abuse Patient Records regulations: The Federal rules restrict any use of the information to criminally investigate or prosecute any alcohol or drug abuse patient.[facility] HospitalIn the event this information is protected by the Federal Confidentiality of Alcohol and Drug Abuse Patient Records regulations: The Federal rules restrict any use of the information to criminally investigate or prosecute any alcohol or drug abuse patient.[facility]In the event this information is protected by the Federal Confidentiality of Alcohol and Drug Abuse Patient Records regulations: The Federal rules restrict any use of the information to criminally investigate or prosecute any alcohol or drug abuse patient.[facility] HospitalIn the event this information is protected by the Federal Confidentiality of Alcohol and Drug Abuse Patient Records regulations: The Federal rules restrict any use of the information to criminally investigate or prosecute any alcohol or drug abuse patient.[facility] Care Teams (unrecognized sec tion and content) [facility] Nurse Relationship Specialty Start Date End Date Vera García DO [address] [phone] PCP - General Family Practice 11/12/19 [facility] Nurse Relationship Specialty Start Date End Date Vera García DO [address] [facility] [address] [place] [phone] PCP - General Family Practice 11/12/19 [facility] Nurse Relationship Specialty Start Date End Date Vera García, DO [address] [place] [phone] PCP - General Family Practice 11/12/19 [facility] Nurse Relationship Specialty Start Date End Date Vera García, DO [address] [place] [phone] PCP - General Family Practice 11/12/19 [facility] Nurse Relationship Specialty Start Date End Date Vera García, DO [address] [place] [phone] PCP - General Family Medicine 11/12/19 [facility] Nurse Relationship Specialty Start Date End Date Vera García DO [address] [place] [phone] PCP - General Family Medicine 11/12/19 [facility] Nurse Relationship Specialty Start Date End Date Vera García DO [address] [place] [phone] PCP - General Family Medicine 11/12/19 [facility] Nurse Relationship Specialty Start Date End Date Vera García [address] [place] [address] PCP - General 02/22/18 [facility] Nurse Relationship Specialty Start Date End Date Vera García DO [address] [place] [address] PCP - General Family Medicine 11/12/19 [facility] Nurse Relationship Specialty Start Date End Date Vera García DO [address] [place] [address] PCP - General Family Medicine 11/12/19 [facility] Nurse Relationship Specialty Start Date End Date Vera Gacría [address] [facility] [address] [place] [address] PCP - General 02/22/18 [facility] Nurse Relationship Specialty Start Date End Date Vera García [address] [facility] [address] [place] [address] PCP - General 02/22/18 [facility] Nurse Relationship Specialty Start Date End Date Vera Garcíaance [address] [facility] [address] [place] [address] PCP - General 02/22/18 [facility] Nurse Relationship Specialty Start Date End Date Vera Garcíaance [address] [facility] [address] [place] [address] PCP - General 02/22/18 [facility] Nurse Relationship Specialty Start Date End Date Vera García [address] [facility] [address] [place] [address] PCP - General 02/22/18 [facility] Nurse Relationship Specialty Start Date End Date Vera García DO [address] [facility] [address] [place] [address] PCP - General Family Medicine 11/12/19 [facility] Nurse Relationship Specialty Start Date End Date Vera García DO [address] [facility] [address] [place] [phone] PCP - General Family Medicine 11/12/19 [facility] Nurse Relationship Specialty Start Date End Date Vera García DO [address] [place] [phone] PCP - General Family Medicine 11/12/19 [facility] Nurse Relationship Specialty Start Date End Date Vera García [address] [place] [phone] PCP - General 02/22/18 Reason for Visit (unrecogniz ed section and content) Reason Comments Consult Patient is here for kidney stone. She was in the ER on 05/02/22. She is not having any pain. Reason Comments Follow Up Denies any new urina ry pain or problems. Reason Comments Back Pain Low back pa x 2 nigh tsPt states that she also has a bug bite to the inner left thigh that is red,itches,warm to touch noticed this on 3wks though it was poison karely then 2 nights ago she noticed some low back pa and is not sure it it relatedPt states that she has a kidney stone in the past Reason Comments Results Reason Comments Annual Exam Reason Onset Date Comments Procedure 10/01/2023 Cystoscopy quest ion 10.05.23 Reason Comments Procedure Cystoscopy Reason Comments Follow-up Reason Onset Date Comments Needs surgery location 10/11/2023 Reason Onset Date Comments Cancelled Appointment 10/22/2023 Surgery Reason Comments Annual Exam Reason Comments Cough Sx started x 024 with a cough,runny nose,body aches,fatigue,diarrhea and headache. Benadryl and cough medication last dose yesterday Reason Onset Date Comments Appointment Confirmation 09/08/2024 FOR RECORDS PERTAINING TO PATIENTS WHO ARE OR HAVE BEEN ENROLLED IN A CHEMICAL DEPENDENCY/SUBSTANCEABUSE PROGRAM, SOME INFORMATION MAY BE OMITTED. This clinical summary was aggregated from multiple sources. Caution should be exercised in using it in the provision of clinical care. This summary normalizes information from multiple sources, and as a consequence, information in this document may materially change the coding, format and clinical context of patient data. In addition, data may be omitted in some cases. CLINICAL DECISIONS SHOULD BE BASED ON THE PRIMARY CLINICAL RECORDS. [employer] [facility]. provides no warranty or guarantee of the accuracy or completeness of information in this document.
== END | disposition home or self-care (01) ==
LOC: MTLAB 13:26
PROVIDERS: Referring Provider Internal Medicine Rheumatology; Visit Provider Internal Medicine Rheumatology
DX: M06.4 Inflammatory polyarthropathy (principal); R76.8 Other specified abnormal immunological findings in serum; Z79.899 Other long term (current) drug therapy
CPT/HCPCS: 36415; 80053; 85025